=== PATIENT | male | born 1935 | race Caucasian/White ===

== ENCOUNTER → 2017-09-28 13:15 | Outpatient (CLI) | payer MEDICARE, OTHER, SELFPAY | PROVIDERS: PCP Family Medicine; Visit Provider Internal Medicine | DX: E11.621 Type 2 diabetes mellitus with foot ulcer (principal); L97.521 Non-pressure chronic ulcer of other part of left foot limited to breakdown of skin; L84 Corns and callosities | CPT/HCPCS: 99213 ==

== ENCOUNTER → 2017-10-08 13:18 | Outpatient (CLI) | payer MEDICARE, OTHER, SELFPAY | PROVIDERS: PCP Family Medicine; Visit Provider Internal Medicine | DX: E11.621 Type 2 diabetes mellitus with foot ulcer (principal); L97.522 Non-pressure chronic ulcer of other part of left foot with fat layer exposed; L08.9 Local infection of the skin and subcutaneous tissue, unspecified | CPT/HCPCS: 11042; 87070; 87075; 87077; 87186; 87205 ==

== ENCOUNTER → 2017-10-14 08:58 | Outpatient (CLI) | payer MEDICARE, OTHER, SELFPAY | PROVIDERS: PCP Family Medicine; Visit Provider Internal Medicine | DX: E11.621 Type 2 diabetes mellitus with foot ulcer (principal); L97.512 Non-pressure chronic ulcer of other part of right foot with fat layer exposed; B95.2 Enterococcus as the cause of diseases classified elsewhere | CPT/HCPCS: 11042 ==

== ENCOUNTER → 2017-10-21 11:05 | Outpatient (CLI) | payer MEDICARE, OTHER, SELFPAY ==
--- NOTE | 2017-10-21 | OV.WND_ITS ---
Progress Note Details Patient Name: Flako Dodson Patient Number: [id number] PatientPatientDate: 10/21/2017 Clinician: Gilma Goode Clinician Cosigner: Courtney Mckeon Physician / Appeals Officer: Naseem Qureshi SUBJECTIVE Chief Complaint This information was obtained from the patient Ulcer to left great toe. Allergies Levaquin (Severity: Severe, Reaction: lips and tongue swell), rifampin, alteplase HPI This information was obtained from the patient 10/21/17. Seen by Dr. Qureshi. The patient's completed his course of Augmentin that 's been treating the chronic and recurrent left 1st toe diabetic ulcer and he does not report recurrence of drainage from the site. He's also wearing his shoe with the cut out that's offloading the ulcer site and addressing the severe lateral deformity of the toe. He'll be seeing Dr. Gonzalez, podiatry, as well to discuss snf options in managing this ulcer and toe deformity. 10/14/17. Seen by Dr. Qureshi. The patient is now on Augmentin for the Enterococcus positive culture taken from the left 1st toe diabetic ulcer at his last visit. He does not report adverse side effects nor significant drainage from this site and states he keeps the ulcer covered at all times. 10/08/17. Seen by Dr. Qureshi. The patient reports increased drainage associated with the chronic left 1st toe diabetic ulcer since his last visit which at the time the ulcer had nearly healed. 09/28/17. Seen by Dr. Qureshi. The patient does not report significant drainage or pain associated with the chronic left 1st toe diabetic ulcer since his last visit. 09/21/17. Seen by Dr. Qureshi. The patient does not report signficant drainage or pain associated with the chronic left 1st toe diabetic ulcer since his last visit. 09/14/17. Seen by Dr. Qureshi. The patient does not report signficant drainage or pain associated with the chronic left 1st toe diabetic ulcer since his last visit. He also cut a hole out in his shoe to help facilitate offloading which he'd done in the past and states it worked well. 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 09/07/2017. Seen by Dr. Qureshi. The patient does not report signficant drainage or pain associated with the chronic left 1st toe diabetic ulcer since his last visit. 08/31/17. Seen by Dr. Qureshi. The patient had a gel insert placed into his orthotic shoe since his last visit to help offload the left first toe recurrent diabetic ulcer. He has a severe valgus deformities caused heavy corey-ulcer callus formation. 08/24/17. Seen by Dr. Qureshi. The patient was to start on Augmentin earlier today based on his wound culture that grew enterococcus. He actually feels the drainage has resolved from the left first toe diabetic ulcer and his orthotic and she was adjusted to help facilitate offloading noted in the significant bony deformity have been contributing to heavy callus formation. 08/17/17. Seen by Dr. Qureshi. The patient returns for clinic following discharge recently for a chronic left first toe diabetic ulcer. He states that it started draining about a week ago and following wearing of his new diabetic shoes. He does not report pain in his toe and states his A1c is typically a bit over 7 although it is monitored blood sugars at home. Has a significant valgus deformity that has resulted in heavy callus formation at the site of the ulcer and he has seen podiatry for this in the past. 07/21/17. Seen by Jose Guadalupe Cai PA-C. The patient reports no drainage from his left 1st toe ulcer since his last dressing change. 07/14/17. Seen by Jose Guadalupe Cai PA-C. The patient reports no increase in drainage from his left 1st toe ulcer. [facility] has called him and clarified that the shoes are in production now. 07/06/17. Seen by Jose Guadalupe Cai PA-C. The patient reports that he saw [facility] and they do not plan to build his shoes until his ulcer is healed first. Drainage from his ulcer has not increased. 06/29/17. Seen by Jose Guadalupe Cai PA-C. The patient reports continued failures in finding a toe lift that fits. He and his have tried several types. Of note, the patient reports that the shoes he wears are not custom diabetic shoes. His soles are noted to be worn down. Drainage from his left 1st toe diabetic ulcer has not increased. 06/23/17. Seen by Jose Guadalupe Cai PA-C. The patient reports he has had a difficult time finding a toe lift that will elevate his great toe, as well as his other toes. He does not report increased drainage from his left 1st toe diabetic ulcer since his last evaluation. 06/10/17. Seen by Dr. Qureshi. The patient does not report significant pain or drainage associated with the chronic left 1st toe diabetic ulcer since his last visit. 05/27/17. Seen by Dr. Qureshi. The patient does not report significant pain or drainage associated with the chronic left 1st toe diabetic ulcer since his last visit. He 's wearing orthotics in his shoes to help facilitate offloading of the left 1st toe deformity that's resulted in recurrent callus formation which is contributing to the refractory nature of the ulcer. 05/07/17. Seen by Dr. Qureshi. The patient does not report significant pain or drainage associated with the chronic left 1st toe diabetic ulcer since his last visit. 04/27/17. Seen by Dr. Qureshi. The patient does not report significant pain or drainage associated with the chronic left 1st toe diabetic ulcer since his last visit. 04/20/17. Seen by Dr. Qureshi. The patient does not report significant pain or drainage associated with the chronic left 1st toe diabetic ulcer since his last visit. He continues to apply topical gentamicin as recommended to treat the recent Enterococcus positive wound culture. 04/13/17. Seen by Dr. Qureshi. Seen by Dr. Qureshi. The patient does not report significant pain or drainage associated with the chronic left 1st toe diabetic ulcer since his last visit. His recent wound culture grew Enterococcus however he's not yet picked up his Rx of Augmentin to start treating this. 04/06/17. Seen by Jose Guadalupe Cai PA-C. The patient reports that his bandage fell over several times and he has noted pururlent drainage from his ulcer. 03/23/17. Seen by Dr. Qureshi. The patient does not report significant pain or drainage associated with the chronic left 1st toe diabetic ulcer since his last visit. He also states he has an appointment with Dr. Gonzalez next week to discuss the significant left 1st toe valgus deformity and possible snf offloading measures. Also, his diabetes is historically relatively well controlled with noting his A1c in February was 7.0. 03/16/17. Seen by Dr. Qureshi. The patient does not report significant pain or drainage associated with the chronic left 1st toe diabetic ulcer since his last visit. He 's seeing his coupon redemption clerk who's made an adjustment to the shoe to help facilitate offloading and prevent the periulcer callus that's be caused by the significant 1st toe valgus deformity. 03/09/17. Seen by Jose Guadalupe Cai PA-C. The patient reports stable drainage from his right great toe ulcer. 03/02/17. Seen by Jose Guadalupe Cai PA-C. The patient reports no increase in drainage from his right great toe ulcer and he feels it is improving in appearance. 02/23/17. Seen by Jose Guadalupe Cai PA-C. The patient reports continued but decreasing drainage since starting his amoxicillin. 02/16/17. Seen by Jose Guadalupe Cai PA-C. The patient reports a slight decrease in drainage from his right great toe once gentamicin was applied. His culture result grew enterococcus. 02/09/17. Seen by Jose Guadalupe Cai PA-C. The patient reports he has a new ulcer to his right great toe that began spontaneously 10 days ago and has been continuously present. He has noted bleeding and clear drainage that occurs intermittently from the ulcer but no pain as he is insensate. 07/30/15 Seen by Jose Guadalupe Cai PA-C. The patient reports no drainage from his coccyx pressure ulcer since his last dressing change. 07/23/15 Seen by Jose Guadalupe Cai PA-C. The patient reports minimal drainage from his coccyx pressure ulcer. The patient and his ask today about a product that purports to be for the prevention of pressure ulcers and purports to contain water of altered electrical resistance as the active ingredient. 07/16/15 Seen by Jose Guadalupe Cai PA-C. The patient's prealbumin level has returned within normal limits. He has redoubled his offloading attempts and has purchased several EHOB cushions to have in the house and car. He reports minimal drainage from his pressure ulcer. 07/24/14 Seen by Jose Guadalupe Cai PA-C. The patient returns to our clinic with an open pressure ulcer on his buttock area. It was first noted 3 months ago and has improved and decreased in size during that time with the application of barrier creams and attempts to offload the area. The ulcer is reported as mildly painful with pain increasing during long periods of sitting. The patient reports eating a balanced diet that includes plenty of protein. pt states improving. 08/27/12 Patient received sound health order yesterday. Still having a hard time keeping dressings on. 09/13/12 States is changing dressing about QOD 09/20/12 Comes in with bandaid (showered this AM) States dressing with hypafix seems to be working well to keep dressing secure 10/11/12 States been changing dressing every 2 days. Feels that wound is on crease where if puts toe on it it flattenes and puts pressure on it. Does feel it is decreasing in size 10/25/12 No significant changes in wound. 11/08/12 States is not healed. States he is changing dressing about once daily sometimes 2 days and puts the cellerate on each time. States the ortho wedge is not real helpful as it creates balance issues so seldom uses it. 11/22/12 Been off foot more, thinks is improving. Changing dressing about q 2 days. States has been using some stuff called Miracle Mist on wound that seems to be helping as well, then putting dressing over it. No change to report 01/18/13 Here for infected right knee. Saw Dr Alonso end of November. Culture showed Staph. On 3rd round of Augmentin. States that it is improving Past Medical History This information was obtained from the patient Patient has a medical history of: Diabetes, type 2 Stroke (02/2015) Epidural hematoma (1 year ago. 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 Complaints and Symptoms This information was obtained from the patient Patient complains of: General Notes: I have reviewed and concur with the Review of Systems and Past Family Social History documents completed by the clinician, I have reviewed and concur with the Wound Assessment document completed by the clinician Integumentary (Hair/Skin/Nails): Open Sore Musculoskeletal: Assistive Devices Neurological: Abnormal Gait (Due to above), Loss of Protective Sensation Prior Wound History: Drainage Patient denies complaints or symptoms related to: Allergic/Immunologic: Frequent Rashes Cardiovascular (Central): Irregular heart beat Cardiovascular (Central/Peripheral): Intermittent Claudication Constitutional Symptoms (General Health): Fever, Loss of Appetite Ear/Nose/Mouth/Throat: Ear Pain, Hearing Loss / Aid Genitourinary (): Urinary Incontinence Hematologic/Lymphatic: Bruising, Bleeding Tendency Psychiatric: Memory Loss Respiratory: Cough, Oxygen Use, Wheezing OBJECTIVE Constitutional Vital signs reviewed and noted. Well developed. Alert. Clean appearing.. Height/ Length: 73 in (185.42 cm), Weight: 230.3 lbs (104.68 kgs), BMI: 30.4, Temperature: 97.8 ?F ( 36.56 ?C), Pulse: 75 bpm, Respiratory Rate: 20 breaths/min, Blood Pressure: 129/73 mmHg, Pulse Oximetry: 97 %. Respiratory: No respiratory distress. Even respirations and without use of accessory muscles.. Cardiovascular: Affected extremity exhibits no peripheral edema or cyanosis, is warm, and is well perfused. Capillary refill is less than 2 seconds. Musculoskeletal: Significant left 1st MTPJ valgus deformity. Integumentary (Hair, Skin) No periwound erythema, warmth, or significant drainage. No periwound rashes appreciated or noted otherwise.. Refer to appropriate clinician wound documentation for this visit; left 1st toe ulcer extends to subcut with base partially covered with pink granulation, remainder fibrin and slough. Moderate amount of callus in the periulcer area. Wound #4 Left Great Toe is a chronic Gloria Grade 2 Diabetic Ulcer and has received a status of Not Healed. Subsequent wound encounter measurements are 0.1cm length x 0.1cm width x 0.1cm depth, with an area of 0.01 sq cm and a volume of 0.001 cubic cm. No tunneling has been noted. No sinus tract has been noted. No undermining has been noted. There was no drainage noted. The patient reports no wound pain due to the wound being insensate. The wound margin is callus. Wound bed has Yes epithelialization, No eschar, No slough, No granulation. The periwound skin moisture is normal. The periwound skin color is normal. The periwound skin exhibited: Callus. The periwound skin did not exhibit: Brawny Induration, Edema, Excoriation, Induration, Crepitus, Fluctuance, Friable, Rash. The temperature of the periwound skin is WNL. Periwound skin does not exhibit signs or symptoms of infection. Local Pulse is Palpable. Neurological: Cranial nerves grossly intact with symmetric function normal by informal observation.. ASSESSMENT Active Problems ICD-10 (Encounter Diagnosis) E11.621 - Type 2 diabetes mellitus with foot ulcer (Encounter Diagnosis) L97.512 - Non-pressure chronic ulcer of other part of right foot with fat layer exposed (Encounter Diagnosis) M20.62 - Acquired deformities of toe(s), unspecified, left foot PROCEDURES Wound #4 Wound #4 (Diabetic Ulcer) is located on the left great toe. A skin/subcutaneous tissue level surgical debridement with a total area debrided of 0.06 sq cm was performed by Naseem Qureshi MD. Subcutaneous was removed along with devitalized tissue: callus and slough. The following instrument(s) were used: curette. Pain control was achieved using Lidocaine 2 % Jelly. A time out was conducted prior to the start of the procedure. A minimal amount of bleeding was controlled with pressure. The procedure was tolerated well with a pain level of 0 throughout and a pain level of 0 following the procedure. Post Debridement Measurements: 0.3cm length x 0.2cm width x 0.2cm depth; with an area of 0.06 sq cm and a volume of 0.012 cubic cm; Additional Information Muscle fascia or bone removed and sent to pathology?: No PLAN Wound Orders: Wound #4 Left Great Toe Anesthetic Topical Xylocaine to wound bed. - In clinic only. Cleanser Cleanse Wound: - Normal saline and gauze, may use distilled water at home. May Shower. - Cover in shower with cast protector or plastic bag. Topical Treatments Antibiotic/Antimicrobial Ointment/Cream. - Gentamicin to wound bed, with every dressing change. Dressings Cover and secure with: - Optifoam secured with hypafix tape. Change Dressing: - Every two days. Additional Orders: Off-Loading Keep weight off: - Great toe as much as possible. Follow-Up Appointments Return Appointment: - - 10-14 days. Other information: If you develop fever, chills, increased pain, drainage, redness or swelling please call our office. If after hours, respond to the ER. Should you experience any significant changes in your wound(s) or have any questions regarding your home care instructions please contact the wound center @ [phone]. If after hours, contact your primary care physician or go to the hospital emergency room. Scribing Attestation I attest, as the nurse, that I scribed these orders for the physician. I've reviewed the clinician's documentation and agree with the evaluation and plan as written. In addition, the patient's ulcer demonstrates evidence of non-viable devitalized tissue which will continue to benefit from sharp debridement to help promote granulation and expedite healing. Also, the patient's left 1st toe ulcer has nearly healed however it will continue to at high risk for recurrence due to the deformity and heavy callus formation. I'll await feedback from Dr. 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 Electronic Signature(s) Signed By: Date: Naseem Qureshi MD 10/21/2017 15:30:00 Entered By: Naseem Qureshi on 10/21/2017 15:27:15
== END ==
PROVIDERS: PCP Family Medicine; Visit Provider Internal Medicine
DX: E11.621 Type 2 diabetes mellitus with foot ulcer (principal); L84 Corns and callosities; L97.522 Non-pressure chronic ulcer of other part of left foot with fat layer exposed; M20.62 Acquired deformities of toe(s), unspecified, left foot
CPT/HCPCS: 11042

== ENCOUNTER → 2017-11-04 10:10 | Outpatient (CLI) | payer MEDICARE, OTHER, SELFPAY ==
--- NOTE | 2017-11-04 | OV.WND_ITS ---
Progress Note Details Patient Name: Flako Dodson Patient Number: [id number] PatientPatientDate: 11/04/2017 Clinician: Lynda Carreon Clinician Cosigner: Joy Verduzco Physician / Business Objects Analyst: Naseem Qureshi SUBJECTIVE Chief Complaint This information was obtained from the patient Ulcer to left great toe. Allergies Levaquin (Severity: Severe, Reaction: lips and tongue swell), rifampin, alteplase HPI This information was obtained from the patient 11/04/17. Seen by Dr. Qureshi. The patient does not report drainage associated with the chronic and recurrent left 1st toe diabetic ulcer since his last visit. 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 They've not been applying Kersal however he's wearing a shoe with a cutout of the sole to help offload the toe. 10/21/17. Seen by Dr. Qureshi. The patient's completed his course of Augmentin that 's been treating the chronic and recurrent left 1st toe diabetic ulcer and he does not report recurrence of drainage from the site. He's also wearing his shoe with the cut out that's offloading the ulcer site and addressing the severe lateral deformity of the toe. He'll be seeing Dr. Gonzalez, podiatry, as well to discuss half-way options in managing this ulcer and toe deformity. 10/14/17. Seen by Dr. Qureshi. The patient is now on Augmentin for the Enterococcus positive culture taken from the left 1st toe diabetic ulcer at his last visit. He does not report adverse side effects nor significant drainage from this site and states he keeps the ulcer covered at all times. 10/08/17. Seen by Dr. Qureshi. The patient reports increased drainage associated with the chronic left 1st toe diabetic ulcer since his last visit which at the time the ulcer had nearly healed. 09/28/17. Seen by Dr. Qureshi. The patient does not report significant drainage or pain associated with the chronic left 1st toe diabetic ulcer since his last visit. 09/21/17. Seen by Dr. Qureshi. The patient does not report signficant drainage or pain associated with the chronic left 1st toe diabetic ulcer since his last visit. 09/14/17. Seen by Dr. Qureshi. The patient does not report signficant drainage or pain associated with the chronic left 1st toe diabetic ulcer since his last visit. He also cut a hole out in his shoe to help facilitate offloading which he'd done in the past and states it worked well. 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 09/07/2017. Seen by Dr. Qureshi. The patient does not report signficant drainage or pain associated with the chronic left 1st toe diabetic ulcer since his last visit. 08/31/17. Seen by Dr. Qureshi. The patient had a gel insert placed into his orthotic shoe since his last visit to help offload the left first toe recurrent diabetic ulcer. He has a severe valgus deformities caused heavy corey-ulcer callus formation. 08/24/17. Seen by Dr. Qureshi. The patient was to start on Augmentin earlier today based on his wound culture that grew enterococcus. He actually feels the drainage has resolved from the left first toe diabetic ulcer and his orthotic and she was adjusted to help facilitate offloading noted in the significant bony deformity have been contributing to heavy callus formation. 08/17/17. Seen by Dr. Qureshi. The patient returns for clinic following discharge recently for a chronic left first toe diabetic ulcer. He states that it started draining about a week ago and following wearing of his new diabetic shoes. He does not report pain in his toe and states his A1c is typically a bit over 7 although it is monitored blood sugars at home. Has a significant valgus deformity that has resulted in heavy callus formation at the site of the ulcer and he has seen podiatry for this in the past. 07/21/17. Seen by Jose Guadalupe Cai PA-C. The patient reports no drainage from his left 1st toe ulcer since his last dressing change. 07/14/17. Seen by Jose Guadalupe Cai PA-C. The patient reports no increase in drainage from his left 1st toe ulcer. [facility] has called him and clarified that the shoes are in production now. 07/06/17. Seen by Jose Guadalupe Cai PA-C. The patient reports that he saw [facility] and they do not plan to build his shoes until his ulcer is healed first. Drainage from his ulcer has not increased. 06/29/17. Seen by Jose Guadalupe Cai PA-C. The patient reports continued failures in finding a toe lift that fits. He and his have tried several types. Of note, the patient reports that the shoes he wears are not custom diabetic shoes. His soles are noted to be worn down. Drainage from his left 1st toe diabetic ulcer has not increased. 06/23/17. Seen by Jose Guadalupe Cai PA-C. The patient reports he has had a difficult time finding a toe lift that will elevate his great toe, as well as his other toes. He does not report increased drainage from his left 1st toe diabetic ulcer since his last evaluation. 06/10/17. Seen by Dr. Qureshi. The patient does not report significant pain or drainage associated with the chronic left 1st toe diabetic ulcer since his last visit. 05/27/17. Seen by Dr. Qureshi. The patient does not report significant pain or drainage associated with the chronic left 1st toe diabetic ulcer since his last visit. He 's wearing orthotics in his shoes to help facilitate offloading of the left 1st toe deformity that's resulted in recurrent callus formation which is contributing to the refractory nature of the ulcer. 05/07/17. Seen by Dr. Qureshi. The patient does not report significant pain or drainage associated with the chronic left 1st toe diabetic ulcer since his last visit. 04/27/17. Seen by Dr. Qureshi. The patient does not report significant pain or drainage associated with the chronic left 1st toe diabetic ulcer since his last visit. 04/20/17. Seen by Dr. Qureshi. The patient does not report significant pain or drainage associated with the chronic left 1st toe diabetic ulcer since his last visit. He continues to apply topical gentamicin as recommended to treat the recent Enterococcus positive wound culture. 04/13/17. Seen by Dr. Qureshi. Seen by Dr. Qureshi. The patient does not report significant pain or drainage associated with the chronic left 1st toe diabetic ulcer since his last visit. His recent wound culture grew Enterococcus however he's not yet picked up his Rx of Augmentin to start treating this. 04/06/17. Seen by Jose Guadalupe Cai PA-C. The patient reports that his bandage fell over several times and he has noted pururlent drainage from his ulcer. 03/23/17. Seen by Dr. Qureshi. The patient does not report significant pain or drainage associated with the chronic left 1st toe diabetic ulcer since his last visit. He also states he has an appointment with Dr. 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 Also, his diabetes is historically relatively well controlled with noting his A1c in February was 7.0. 03/16/17. Seen by Dr. Qureshi. The patient does not report significant pain or drainage associated with the chronic left 1st toe diabetic ulcer since his last visit. He 's seeing his regional construction manager who's made an adjustment to the shoe to help facilitate offloading and prevent the periulcer callus that's be caused by the significant 1st toe valgus deformity. 03/09/17. Seen by Jose Guadalupe Cai PA-C. The patient reports stable drainage from his right great toe ulcer. 03/02/17. Seen by Jose Guadalupe Cai PA-C. The patient reports no increase in drainage from his right great toe ulcer and he feels it is improving in appearance. 02/23/17. Seen by Jose Guadalupe Cai PA-C. The patient reports continued but decreasing drainage since starting his amoxicillin. 02/16/17. Seen by Jose Guadalupe Cai PA-C. The patient reports a slight decrease in drainage from his right great toe once gentamicin was applied. His culture result grew enterococcus. 02/09/17. Seen by Jose Guadalupe Cai PA-C. The patient reports he has a new ulcer to his right great toe that began spontaneously 10 days ago and has been continuously present. He has noted bleeding and clear drainage that occurs intermittently from the ulcer but no pain as he is insensate. 07/30/15 Seen by Jose Guadalupe Cai PA-C. The patient reports no drainage from his coccyx pressure ulcer since his last dressing change. 07/23/15 Seen by Jose Guadalupe Cai PA-C. The patient reports minimal drainage from his coccyx pressure ulcer. The patient and his ask today about a product that purports to be for the prevention of pressure ulcers and purports to contain water of altered electrical resistance as the active ingredient. 3/7/16 Seen by Jose Guadalupe Cai PA-C. The patient's prealbumin level has returned within normal limits. He has redoubled his offloading attempts and has purchased several EHOB cushions to have in the house and car. He reports minimal drainage from his pressure ulcer. 07/24/14 Seen by Jose Guadalupe Cai PA-C. The patient returns to our clinic with an open pressure ulcer on his buttock area. It was first noted 3 months ago and has improved and decreased in size during that time with the application of barrier creams and attempts to offload the area. The ulcer is reported as mildly painful with pain increasing during long periods of sitting. The patient reports eating a balanced diet that includes plenty of protein. pt states improving. 08/27/12 Patient received sound health order yesterday. Still having a hard time keeping dressings on. 09/13/12 States is changing dressing about QOD 09/20/12 Comes in with bandaid (showered this AM) States dressing with hypafix seems to be working well to keep dressing secure 10/11/12 States been changing dressing every 2 days. Feels that wound is on crease where if puts toe on it it flattenes and puts pressure on it. Does feel it is decreasing in size 10/25/12 No significant changes in wound. 11/08/12 States is not healed. States he is changing dressing about once daily sometimes 2 days and puts the cellerate on each time. States the ortho wedge is not real helpful as it creates balance issues so seldom uses it. 11/22/12 Been off foot more, thinks is improving. Changing dressing about q 2 days. States has been using some stuff called Miracle Mist on wound that seems to be helping as well, then putting dressing over it. No change to report 01/18/13 Here for infected right knee. Saw Dr Alonso end of November. Culture showed Staph. On 3rd round of Augmentin. States that it is improving Family History This information was obtained from the patient Cancer - Father, Diabetes - Child, Other - Mother Social History This information was obtained from the patient Never smoker, Alcohol Use - 1 drink per day, Lives in - Private home with , Marital Status - , Retired Past Medical History This information was obtained from the patient Patient has a medical history of: Diabetes, type 2 Stroke (02/2015) Epidural hematoma (1 year ago. 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 Surgical History This information was obtained from the patient Patient has a surgical history of: Tonsillectomy - 05/11/1942 hemorrhoidectomy - 05/11/1989 appendectomy,laminectomy (,) left knee ACL replacement - 03/11/2002 Larnyx nodule removal - 07/09/2006 left Knee Replacement - 02/09/2008 left knee pad replacement - 01/09/2009 c4 vertebrae surgeery - 02/09/2011 l4 laminectomy - 12/13/2011 Right knee replaced (5 years ago) Complaints and Symptoms This information was obtained from the patient Patient complains of: General Notes: I have reviewed and concur with the Review of Systems and Past Family Social History documents completed by the clinician, I have reviewed and concur with the Wound Assessment document completed by the clinician Integumentary (Hair/Skin/Nails): Open Sore Musculoskeletal: Assistive Devices Neurological: Abnormal Gait (Due to above), Loss of Protective Sensation Prior Wound History: Drainage Patient denies complaints or symptoms related to: Allergic/Immunologic: Frequent Rashes Cardiovascular (Central): Irregular heart beat Cardiovascular (Central/Peripheral): Intermittent Claudication Constitutional Symptoms (General Health): Fever, Loss of Appetite Ear/Nose/Mouth/Throat: Ear Pain, Hearing Loss / Aid Genitourinary (): Urinary Incontinence Hematologic/Lymphatic: Bruising, Bleeding Tendency Psychiatric: Memory Loss Respiratory: Cough, Oxygen Use, Wheezing OBJECTIVE Constitutional Vital signs reviewed and noted. Well developed. Alert. Clean appearing.. Height/ Length: 73 in (185.42 cm), Weight: 230.3 lbs (104.68 kgs), BMI: 30.4, Temperature: 98.3 ?F ( 36.83 ?C), Pulse: 73 bpm, Respiratory Rate: 18 breaths/min, Blood Pressure: 134/79 mmHg, Pulse Oximetry: 98 %. Ears, Nose, Mouth, and Throat: Mild hearing deficit. Respiratory: No respiratory distress. Even respirations and without use of accessory muscles.. Cardiovascular: Pedal pulses 2+ on affected limb. Affected extremity exhibits no peripheral edema or cyanosis, is warm, and is well perfused. Capillary refill is less than 2 seconds. Musculoskeletal: Significant left 1st MTPJ valgus deformity. Integumentary (Hair, Skin) No periwound erythema, warmth, or significant drainage. No periwound rashes appreciated or noted otherwise.. Refer to appropriate clinician wound documentation for this visit.. Moderate amount of callus in the now healed periulcer area of the left 1st toe. Wound #4 Left Great Toe is a chronic Gloria Grade 2 Diabetic Ulcer and has received an outcome of Healed - no new wound(s). Subsequent wound encounter measurements are 0cm length x 0cm width with no measurable depth, with an area of 0 sq cm . No tunneling has been noted. No sinus tract has been noted. No undermining has been noted. There was no drainage noted. The patient reports no wound pain due to the wound being insensate. The wound margin is callus. Wound bed has Yes epithelialization, No eschar, No slough, No granulation. The periwound skin moisture is normal. The periwound skin color is normal. The periwound skin exhibited: Callus. The periwound skin did not exhibit: Brawny Induration, Edema, Excoriation, Induration, Crepitus, Fluctuance, Friable, Rash. The temperature of the periwound skin is WNL. Periwound skin does not exhibit signs or symptoms of infection. Local Pulse is Palpable. Neurological: Cranial nerves grossly intact with symmetric function normal by informal observation.. ASSESSMENT Active Problems ICD-10 (Encounter Diagnosis) E11.621 - Type 2 diabetes mellitus with foot ulcer (Encounter Diagnosis) L97.512 - Non-pressure chronic ulcer of other part of right foot with fat layer exposed (Encounter Diagnosis) M20.62 - Acquired deformities of toe(s), unspecified, left foot (Encounter Diagnosis) L84 - Corns and callosities PLAN Wound Orders: Wound #4 Left Great Toe Cleanser Cleanse Wound: - Normal saline and gauze, may use distilled water at home. May Shower. - Cover in shower with cast protector or plastic bag. Topical Treatments Moisturizing lotion to surround skin. - Kerasal to callus area. Dressings Cover and secure with: - Optifoam secured with hypafix tape. Change Dressing: - Every 3 days for two weeks. Additional Orders: Off-Loading Keep weight off: - Great toe as much as possible. Follow-Up Appointments Other information: If you develop fever, chills, increased pain, drainage, redness or swelling please call our office. If after hours, respond to the ER. Should you experience any significant changes in your wound(s) or have any questions regarding your home care instructions please contact the wound center @ [phone]. If after hours, contact your primary care physician or go to the hospital emergency room. Discharge from Outpatient Services. - Wound healed. Scribing Attestation I attest, as the nurse, that I scribed these orders for the physician. I've reviewed the clinician's documentation and agree with the evaluation and plan as written. In addition the patient's last remiaining complex wound is now healed. The patient is invited to return to our clinic for treatment of any future complex wounds. Post wound care and strategies to avoid recurrences were discussed. Also, I've recommended the patient apply Kerasal to the left 1st toe callus every 3 days and gently abrade the area with pumice, being cautious to not causing bleeding, in the interim until he sees podiatry again. Electronic Signature(s) Signed By: Date: Naseem Qureshi MD 11/05/2017 09:59:55 Entered By: Naseem Qureshi on 11/05/2017 09:02:59
== END ==
PROVIDERS: PCP Family Medicine; Visit Provider Internal Medicine
DX: Z48.817 Encounter for surgical aftercare following surgery on the skin and subcutaneous tissue (principal); E11.9 Type 2 diabetes mellitus without complications; L84 Corns and callosities; M20.62 Acquired deformities of toe(s), unspecified, left foot
CPT/HCPCS: 99213

== ENCOUNTER → 2018-04-15 11:37 | Outpatient (CLI) | payer MEDICARE, OTHER, SELFPAY ==
--- NOTE | 2018-04-15 | DI.RAD.S_ITS ---
PROCEDURE: XR FOOT LT MIN 3V INDICATIONS: Non-pressure chronic ulcer of other part of left foot with f TECHNIQUE: 3 views of the foot were acquired. COMPARISON: [facility], CR, ANKLE MIN 3VW (LT), 07/21/2014, 10:24. FINDINGS: Bones: No fractures or dislocations. No suspicious bony lesions. Degenerative changes are noted at the tibiotalar joint and subtalar joint, with radiographic appearance suggesting neuropathic arthropathy. No bony erosion. There is osteopenia. Soft tissues: No tibiotalar joint effusion. Achilles tendon appears normal. Soft tissue swelling anterior to the ankle. IMPRESSION: 1. No bony erosion. Radiographs are not sensitive for early osteomyelitis. If clinical suspicion for pathology is high, a triple phase bone scan or MRI is suggested for further evaluation. 2. ? Neuropathic arthropathy versus severe degenerative joint disease. 3. Osteopenia. Dictated by: Nnamdi Santiago M.D. on 04/15/2018 at 16:06 Approved by: Nnamdi Santiago M.D. on 04/15/2018 at 16:12
== END ==
PROVIDERS: PCP Family Medicine; Visit Provider Podiatrist
DX: L97.522 Non-pressure chronic ulcer of other part of left foot with fat layer exposed (principal); M85.872 Other specified disorders of bone density and structure, left ankle and foot
CPT/HCPCS: 73630

== ENCOUNTER 2018-07-21 13:01 | Day surgery (SDC) | payer MEDICARE, OTHER, SELFPAY ==
--- NOTE | 2018-07-17 10:24 | PM.PREOP ---
Pre-operative Note Interval Note History & Physical reviewed/Exam performed by Physician: Yes Changes to H&P: No H&P completed within 30 days and has changed as indicated here:: Fasting glucose 127.
--- NOTE | 2018-07-17 11:27 | PM.OP.1 ---
Operative Date/Time/Diagnoses Date of procedure: 07/21/18 Time of procedure: 13:45 Procedure & Clinicians Procedure: Procedure: Bilateral ectropion repair. Preoperative diagnosis: 1.Bilateral lower lid ectropion.Bilateral lower punctal dilation, 3 snip and left inferior spindle erpair. 2.Diabetes without retinopathy. 3. Chronic epiphora with punctal stenosis needing punctal surgert and left spindle procedure. 4.Recent skin cancer removal left rastafari. Anesthesia: local with monitored standby. Blood loss less than 5 cc. Operative summary. Patient is a 83-year-old diabetic male who has chronic exposure of his lower cornea and epiphora due to lower lid laxity and closed puncta. He has persistent symptoms conservative treatment of lubricants and night ointment. He is medically stable and to proceed surgery. He did have a recent cancerous lesion removed from his left rastafari with sutures due to be removed prior to the surgery. He has taken to the operating room. Given IV sedation. Then local anesthetic is infiltrated through both lower lids and puncta using 1% xylocaine with epinephrine mixed with normal saline and hyulronidase. This is then supplemented with additional 2 0.5 cc 2% xylocaine mixed 0.5% Marcaine with 1 cc of hyulronidase to all areas the lower lateral inferior lid. He has then prepped full face open. A number 15 Bard-Richar blade is used to make a 1 cm lateral canthotomy on the right. The inferior canthal tendon was lysed. A tarsal strip was formed exposing the anterior and posterior lamella. Minimal tissue was resected. A 5.0 Mersilene suture double-armed was placed through the tarsal strip and anchored to the periosteum. Both sutures were passed and it was tied with multiple knots. The lateral canthus was then reconstructed with interrupted 6 0 Vicryl sutures. The lower punctum was dilated with a punctal dilator. A 3 snip procedure was performed. The punctum was dilated to the common canaliculus. This procedure was repeated for the left eye in identical fashion. There was minimal blood loss. He returned recovery room in stable condition Same procedure as scheduled: Yes Indications: Bilateral lower lid ectropion. Surgeon: Juanita Qureshi Click Yes if Unassisted: Yes Anesthesia Type: MAC +/- and Local Operative Notes Findings: Bilateral lower lid laxity and punctal stenosis. Closure Type: primary Specimen(s): none sent Prosthetic devices, grafts, tissues, transplants, or devices: None Estimated Blood Loss (mL): 5 Blood products transfused: none Procedure in detail: Patient was taken to the operating room. The area is a surgical incision to be performed were confirmed. The planned surgery was for bilateral lower lid ectropion repair with horizontal shortening bilateral lower lid punctal probing with 3 snip procedure and left spindle procedure. This was to improve patient's chronic tearing and irritation. 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 This was not in the planned surgical sites. He was given IV sedation. Local anesthetic was given To both lower lids and lower nasal canthus. 1% xylocaine with epinephrine mixed with normal saline 50 50 with 1 cc of hyaluronidase added to 0.5 cc was given to each lid. This was then supplemented with 2% xylocaine with epinephrine mixed with 0.5% bupivacaine and 1 cc of hyalurondase 2.5 cc to each lower lid. He was then prepped full face open with Betadine. Attention was placed to the right lower lid. A punctal dilator was used to dilate the punctum and then scissors were used to create a 3 snip procedure. This was then probed to the nose. Attention was placed to the lateral lid. A 1 cm lateral canthotomy was performed. The inferior canthal tendon was lysed. Prolapse fat was removed temporally. A temp tarsal strip procedure was performed with removal of the anterior and posterior lamella and a 1 mm resection. This strip was anchored to the periosteum with a double-armed 5 0 Mersilene suture. Excellent position was obtained. The lateral canthus was then reapproximated with interrupted 6 0 Vicryl sutures and the lateral skin closed. Attention was placed to the left lid. The inferior punctum was dilated. A 3 snip procedure was performed. An inferior spindle using an incision 8 mm inferior to the punctum on the conjunctival side. Cautery applied. A 6 0 Vicryl suture then placed in a mattress style through the lower lid and the skin by the lower lid retractors and externalized and tied. The lateral canthus was then approached. Extra anesthetic was given. A lateral canthotomy of 1 cm was performed. An inferior canthal tendon lysis was performed. Removal of inferior prolapsed fat was performed. After hemostasis, a tarsal strip was formed at the lateral canthus with removal of the anterior posterior lamella. 1 mm was removed. The superior canthal lid margin was also incised. A 5 0 Mersilene double-armed suture was placed through the periosteum and tied with multiple throws. Good position resulted. The lateral canthus was then reapproximated with interrupted 6 0 Vicryl sutures and the skin closed with interrupted 6 0 Vicryl sutures. There was less than 5 cc blood loss for the entire case. Maxitrol ointment was placed after removing the Betadine. The patient returned to the recovery room in excellent condition. No specimen were sent. Complications: none Condition: stable Disposition: same day surgery Plan for aftercare: Cold compresses and suture to incisions. Handout given to patient. Return to office for follow-up and suture removal
--- NOTE | 2018-07-17 11:46 | P.OP_ITS ---
Operative Date/Time/Diagnoses Date of procedure: 07/21/18 Time of procedure: 13:45 Procedure & Clinicians Procedure: Procedure: Bilateral ectropion repair. Preoperative diagnosis: 1.Bilateral lower lid ectropion.Bilateral lower punctal dilation, 3 snip and le ft inferior spindle erpair. 2.Diabetes without retinopathy. 3. Chronic epiphora with punctal stenosis needing punctal surgert and left spindle procedure. 4.Recent skin cancer removal left synagogue. Anesthesia: local with monitored standby. Blood loss less than 5 cc. Operative summary. Patient is a 83-year-old diabetic male who has chronic exposure of his lower cornea and epiphora due to lower lid laxity and closed puncta. He has persistent symptoms conservative treatment of lubricants and night ointment. He is medically stable and to proceed surgery. He did have a recent cancerous lesion removed from his left synagogue with sutures due to be removed prior to the surgery. He has taken to the operating room. Given IV sedation. Then local anesthetic is infiltrated through both lower lids and puncta using 1% xylocaine with epinephrine mixed with normal saline and hyulronidase. This is then supplemented with additional 2 0.5 cc 2% xylocaine mixed 0.5% Marcaine with 1 cc of hyulronidase to all areas the lower lateral inferior lid. He has then prepped full face open. A number 15 Bard-Richar blade is used to make a 1 cm lateral canthotomy on the right. The inferior canthal tendon was lysed. A tarsal strip was formed exposing the anterior and posterior lamella. Minimal tissue was resected. A 5.0 Mersilene suture double- armed was placed through the tarsal strip and anchored to the periosteum. Both sutures were passed and it was tied with multiple knots. The lateral canthus was then reconstructed with interrupted 6 0 Vicryl sutures. The lower punctum was dilated with a punctal dilator. A 3 snip procedure was performed. The punctum was dilated to the common canaliculus. This procedure was repeated for the left eye in identical fashion. There was minimal blood loss. He returned recovery room in stable condition Same procedure as scheduled: Yes Indications: Bilateral lower lid ectropion. Surgeon: Juanita Qureshi Click Yes if Unassisted: Yes Anesthesia Type: MAC +/- and Local Operative Notes Findings: Bilateral lower lid laxity and punctal stenosis. Closure Type: primary Specimen(s): none sent Prosthetic devices, grafts, tissues, transplants, or devices: None Estimated Blood Loss (mL): 5 Blood products transfused: none Procedure in detail: Patient was taken to the operating room. The area is a surgical incision to be performed were confirmed. The planned surgery was for bilateral lower lid ectropion repair with horizontal shortening bilateral lower lid punctal probing with 3 snip procedure and left spindle procedure. This was to improve patient's chronic tearing and irritation. 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 This was not in the planned surgical sites. He was given IV sedation. Local anesthetic was given To both lower lids and lower nasal canthus. 1% xylocaine with epinephrine mixed with normal saline 50 50 with 1 cc of hyaluronidase added to 0.5 cc was given to each lid. This was then supplemented with 2% xylocaine with epinephrine mixed with 0.5% bupivacaine and 1 cc of hyalurondase 2.5 cc to each lower lid. He was then prepped full face open with Betadine. Attention was placed to the right lower lid. A punctal dilator was used to dilate the punctum and then scissors were used to create a 3 snip procedure. This was then probed to the nose. Attention was placed to the lateral lid. A 1 cm lateral canthotomy was performed. The inferior canthal tendon was lysed. Prolapse fat was removed temporally. A temp tarsal strip procedure was performed with removal of the anterior and posterior lamella and a 1 mm resection. This strip was anchored to the periosteum with a double-armed 5 0 Mersilene suture. Excellent position was obtained. The lateral canthus was then reapproximated with interrupted 6 0 Vicryl sutures and the lateral skin closed. Attention was placed to the left lid. The inferior punctum was dilated. A 3 snip procedure was performed. An inferior spindle using an incision 8 mm inferior to the punctum on the conjunctival side. Cautery applied. A 6 0 Vicryl suture then placed in a mattress style through the lower lid and the skin by the lower lid retractors and externalized and tied. The lateral canthus was then approached. Extra anesthetic was given. A lateral canthotomy of 1 cm was performed. An inferior canthal tendon lysis was performed. Removal of inferior prolapsed fat was performed. After hemostasis, a tarsal strip was formed at the lateral canthus with removal of the anterior posterior lamella. 1 mm was removed. The superior canthal lid margin was also incised. A 5 0 Mersilene double-armed suture was placed through the periosteum and tied with multiple throws. Good position resulted. The lateral canthus was then reapproximated with interrupted 6 0 Vicryl sutures and the skin closed with interrupted 6 0 Vicryl sutures. There was less than 5 cc blood loss for the entire case. Maxitrol ointment was placed after removing the Betadine. The patient returned to the recovery room in excellent condition. No specimen were sent. Complications: none Condition: stable Disposition: same day surgery Plan for aftercare: Cold compresses and suture to incisions. Handout given to patient. Return to office for follow-up and suture removal
[2018-07-21 13:27] VITALS: BP 138/75; PULSE 62; RESP 15; TEMP 36.5; O2SAT 99; BMI 29.0
--- NOTE | 2018-07-21 14:39 | SUR.OPER ---
Supine on eye stretcher, head on extension cradle. Arms tucked at sides. Pillow under knees.
[2018-07-21] MEDS: PROPARACAINE 0.5% OPHTH SOL 2 DROPS EYE-BOTH (14:44)
[2018-07-21] MEDS: LIDOCAINE 1% W/EPI 3 ML, SODIUM CHLORIDE 0.9% 2 ML, HYALURONIDASE 150 UNIT INJ (14:47)
[2018-07-21] MEDS: LIDOCAINE 2% W/EPI 3 ML, BUPIVACAINE 0.5% (PF) 2 ML, HYALURONIDASE 150 UNIT INJ (14:52)
[2018-07-21 15:45] VITALS: BP 137/76; PULSE 76; RESP 16; TEMP 36.2; O2SAT 98
[2018-07-21 16:15] VITALS: BP 149/80; PULSE 72; RESP 16; TEMP 36.2; O2SAT 100
--- NOTE | 2018-07-21 17:22 | SUR.PHASEII ---
pt co's of pain about 2/10, took his own tylenol that had at 1615, ice to surgical sites , 1640 dressed ready to go home , no questions
== END 2018-07-21 16:40 | disposition home or self-care (01) ==
LOC: OR 13:03
PROVIDERS: PCP Family Medicine; Visit Provider Ophthalmology
PROC: (CPT 67917; principal; 2018-07-21 13:45)
DX: H02.105 Unspecified ectropion of left lower eyelid (principal); H02.102 Unspecified ectropion of right lower eyelid; E11.9 Type 2 diabetes mellitus without complications
CPT/HCPCS: 67917; J2704; J3470

== ENCOUNTER → 2018-10-08 14:24 | Outpatient (CLI) | payer MEDICARE, OTHER, SELFPAY ==
--- NOTE | 2018-10-08 | DI.RAD.S_ITS ---
PROCEDURE: XR FOOT LT MIN 3V INDICATIONS: HISTORY OF FOOT SURGERY TECHNIQUE: 3 views of the foot were acquired. COMPARISON: [facility], CR, XR FOOT LT MIN 3V, 04/15/2018, 11:55. FINDINGS: Bones: No fractures or dislocations. No suspicious bony lesions. Prior presumed osteotomy and K wire fixation crossing the first inter-phalangeal joint with a single staple-like device also crossing the interphalangeal joint also. Soft tissues: No tibiotalar joint effusion. Achilles tendon appears normal. IMPRESSION: Podiatry related procedure at the first inter-phalangeal joint with normal alignment established. Dictated by: Osman Hanson M.D. on 10/08/2018 at 14:47 Approved by: Osman Hanson M.D. on 10/08/2018 at 14:48
== END ==
PROVIDERS: PCP Family Medicine; Visit Provider Podiatrist
DX: Z45.89 Encounter for adjustment and management of other implanted devices (principal); Z98.890 Other specified postprocedural states; Z98.1 Arthrodesis status
CPT/HCPCS: 73630

== ENCOUNTER 2019-01-17 13:00 | Outpatient (RCR) | payer MEDICARE, OTHER, SELFPAY ==
--- NOTE | 2018-11-04 16:00 | PT.OIE ---
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 (11/04/18) Muscle weakness (generalized) (11/04/18) Other abnormalities of gait and mobility (11/04/18) Past Medical History (Last Reviewed 08/22/18 @ 23:08 by BESSY Ferguson) Snoring (Chronic) Provider Visit Care Team Role Provider Type Roger Du MD Attending Provider Physician Primary Care Provider Specialty: [facility] Address: [facility] [place], [place], [facility] Email: [email or web address] Physical Therapy Initial Evaluation PT-OP-A Visit Information Start: 11/04/18 17:40 Freq: Status: Active Protocol: Document 11/04/18 15:15 DCW (Rec: 11/04/18 18:07 DCW [id number]) Out-Patient Physical Therapy Visit Information Visit Information Visit Type Initial Evaluation Visit Start Time 15:15 Visit Stop Time 16:00 Total Visit Minutes 45 Visit Number 1 Number of COIN TELLER Visits 0 Evaluation Information Evaluation Date 11/04/18 PT-OP-B Current Condition Start: 11/04/18 17:40 Freq: Status: Active Protocol: Document 11/04/18 15:15 DCW (Rec: 11/04/18 18:07 DCW [id number]) Current Condition History of Current Condition Onset Date 4 years Current Complaints weakness, fatigue, imbalance, gait difficulty History of Current Condition Pt is an 83 year old male presenting with a long- standing history of weakness, gait difficulty, and imbalance 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 Pt was treated at this facility two years ago for this same deficit, and felt it helped at the time, but admits he has lost a lot of strength and stability since then. Pt reports he doesn't have a lot of strength, and even though he is doing most everything he is used to doing, it's all just more difficult now. Pt uses a 4WW for all gait and balance. Pt has ongoing left- sided weakness secondary to his prior CVA. 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 Treatment Goals Patient/Caregiver Goals I just want to make everything easier to do. Prior Functional Status Baseline Function- ADL's Modified Independent Baseline Function- Mobility Modified Independent PT-OP-C Subjective Start: 11/04/18 17:40 Freq: Status: Active Protocol: Document 11/04/18 15:15 DCW (Rec: 11/04/18 18:07 DCW [id number]) OP-PT Subjective Patient Comments Patient Comments I've slowly been getting worse since I was here last, but it's gotten to the point I really need to do something. Patient Reported Progress Worse PT-OP-D Balance Start: 11/04/18 17:40 Freq: Status: Active Protocol: Document 11/04/18 15:15 DCW (Rec: 11/04/18 18:07 DCW [id number]) OP-PT Balance Assessment Sitting Balance Static Sitting Balance Ability Normal Dynamic Sitting Balance Ability Normal Standing Balance Static Standing Balance Ability Fair Dynamic Standing Balance Ability Fair Balance Tests Miller Balance Test Miller Balance Test Score 34/56 Miller Impairment Rating 20 to 39% Impaired (Score 34- 44) Miller Balance Assessment Evaluation Sitting to Standing Ability Independent w/out Hands Unsupported Stance Safely- 2 minutes Sitting Unsupported, Feet on Floor Safely- 2 minutes Standing to Sitting Ability Assist, Control w/Hands Transfer Ability Safely, Hand Use Unsupported Stance- Eyes Closed Supervision, 10 seconds Unsupported Stance- Eyes Open Assist to attain, 15 secs Reaching Forward Standing Safely, 5 inches Pick- Up Object From Floor Supervision Look Behind Shoulder - Standing Turns Sideways Only Turning 360 Degrees Supervision/Verbal Cues Unsupported Stance, Alternating Feet on Assist to Prevent Fall Stair Unsupported Tandem Stance Holds Tandem- 30 seconds Unilateral Leg Stance Unable,assist to not fall Total Score Miller Total Score (out of 56 points) 34 Miller Impairment Rating 20 to 39% Impaired (Score 34- 44) Bo Fall Scale Copyright Permission PT-OP-E Functional Tests Start: 11/04/18 17:40 Freq: Status: Active Protocol: Document 11/04/18 15:15 DCW (Rec: 11/04/18 18:07 DCW [id number]) Functional Tests 6 Minute Walk Test Distance 715 Device Used 4WW Comments 1.99 ft/sec Dynamic Gait Index (DGI) Score 15/24 DGI Impairment Rating 20 to <40% Impaired (Score 15- 19) PT-OP-G Mobility & Gait Start: 11/04/18 17:40 Freq: Status: Active Protocol: Document 11/04/18 15:15 DCW (Rec: 11/04/18 18:07 DCW [id number]) OP Gait Assessment Gait Gait Assistance Required: Independent Distance (Feet) 715 Able to Maintain Weight Bearing Status Yes During Gait Assistive Devices Assistive Device Gait Belt 4 Wheeled Walker Gait Deviations General Gait Pattern Antalgic Decreased Feet Clearance Flexed Trunk Lateral Trunk Lean Narrow Based Gait Factors Limiting Gait Function Factors Limiting Gait Function Decreased Strength Limited Range of Motion Pain Comments Gait Comments Pt ambulates with his left foot externally rotated 30?, and hits his left foot on the heel of his right foot during left swing phase ~30% of the time. Stair Climbing Evaluation Evaluation Level of Assist On Stairs Independent Devices Stair Climbing Assistive Devices Left Railing Right Railing Technique/Endurance Stair Climbing Direction Ascend and Descend Stair Climbing Technique Step Over Step Number of Steps Climbed 3 Stair Climbing Set # Repetitions (reps) 2 PT-OP-M Strength Start: 11/04/18 17:40 Freq: Status: Active Protocol: Document 11/04/18 15:15 DCW (Rec: 11/04/18 18:07 DCW [id number]) Hip Strength Hip Manual Muscle Testing Right Flexion (L2) 4- Good- Abduction 4- Good- Adduction 4- Good- External Rotation 4 Good Internal Rotation 4 Good Left Flexion (L2) 3- Fair- Abduction 3+ Fair+ Adduction 4- Good- External Rotation 3+ Fair+ Internal Rotation 3 Fair Knee Strength Knee Manual Muscle Testing Right Flexion (S2) 4+ Good+ Extension (L3) 4+ Good+ Left Flexion (S2) 4- Good- Extension (L3) 4+ Good+ Ankle/Foot Strength Ankle and Foot Manual Muscle Testing Right Dorsiflexion (L4) 4 Good Left Dorsiflexion (L4) 3- Fair- PT-OP-T Assessment and Plan Start: 11/04/18 17:40 Freq: Status: Active Protocol: Document 11/04/18 15:15 DCW (Rec: 11/04/18 18:07 DCW [id number]) Physical Therapy Assessment Rehab Potential Rehabilitation Potential Good Evaluation Complexity Number of Personal Factors/Comorbidities 3 or More Number of Body Systems Impaired 3 Clinical Presentation at Evaluation Evolving Impairments Impairments Activity Tolerance Balance Functional Activities Functional Mobility Gait Pain ROM Soft Tissue Mobility Strength Other Concerns Fall Risk yes, per Miller (34/56) and DGI () Goals Four Impairment Pt demonstrates LE weakness, especially on his left side Sod Farmer Goal (LTG) Pt to improve MMT of his left LE to grossly 4-/5 LTG Duration 01/04/19 Three Impairment Pt at a falls risk per Miller ( 34/56) and DGI () Short Term Goal (STG) Pt to score 42/56 on Miller Balance Test to demonstrate a decreased falls risk STG Duration 12/04/18 Retirement Goal (LTG) Pt to score 20/24 on DGI to demonstrate a decreased falls risk LTG Duration 01/04/19 Two Impairment Pt walks at a pace of 1.99 feet/sec Sod Farmer Goal (LTG) Pt to ambulate at a pace of 2. 3 feet per second over his 6 MWT (828') to improve his ability to ambulate quickly around [employer] LTG Duration 01/04/19 One Impairment Pt does not have an appropriate home exercise program Short Term Goal (STG) Pt to be independent and compliant with an appropriate HEP STG Duration 12/04/18 Assessment Summary Assessment Pt presents with generalized weakness, deconditioning, and poor balance 4 years s/p CVA. Pt has previously been treated at this clinic for this same deficit, and responded well to therapy, however this was two years ago and pt has been declining recently. 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 Pt is a a very similar level of function that he was two years ago at the start of his previous therapy sessions, with a 6 MWT score of 715' ( prior was 623') and a Miller score of 34/56 (prior 35/56), and he was able to increase both those sores significantly last time, demonstrating a good rehab potential. Pt should benefit from skilled therapy focusing on LE strengthening, gait training, balance training, and improved activity tolerance. Physical Therapy Plan Frequency and Duration Frequency of Treatment 2x/Week Duration of Treatment 12 weeks Plan of Care Start Date 11/04/18 Plan of Care End Date 01/27/19 Therapeutic Interventions Therapeutic Interventions Aquatic Therapy Balance Training Home Exercise Program Joint Mobilizations Manual Therapy Neuromuscular Re-education Patient/Caregiver Education Self-Care/Home Management Soft Tissue Mobilization Therapeutic Activities Therapeutic Exercises Modalities Cold Pack/Ice Massage Electric Stimulation Hot Packs Ultrasound Next Visit Focus/Plan Next Note Type Treatment Note Next Visit Plan Activity tolerance, Balance training, Strengthening
--- NOTE | 2018-11-18 10:52 | PT.OTN ---
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 (11/18/18) Muscle weakness (generalized) (11/18/18) Other abnormalities of gait and mobility (11/18/18) Physical Therapy Treatment Note PT-OP-A Visit Information Start: 11/04/18 17:40 Freq: Status: Active Protocol: Document 11/18/18 10:37 AMH (Rec: 11/18/18 10:52 AMH [id number]) Out-Patient Physical Therapy Visit Information Visit Information Visit Type Treatment Note Visit Start Time 09:00 Visit Stop Time 09:45 Total Visit Minutes 45 Visit Number 2 Number of PBX INSTALLER Visits 0 Evaluation Information Evaluation Date 11/04/18 PT-OP-B Current Condition Start: 11/04/18 17:40 Freq: Status: Active Protocol: Document 11/04/18 15:15 DCW (Rec: 11/04/18 18:07 DCW [id number]) Current Condition History of Current Condition Onset Date 4 years Current Complaints weakness, fatigue, imbalance, gait difficulty History of Current Condition Pt is an 83 year old male presenting with a long- standing history of weakness, gait difficulty, and imbalance 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 Pt was treated at this facility two years ago for this same deficit, and felt it helped at the time, but admits he has lost a lot of strength and stability since then. Pt reports he doesn't have a lot of strength, and even though he is doing most everything he is used to doing, it's all just more difficult now. Pt uses a 4WW for all gait and balance. Pt has ongoing left- sided weakness secondary to his prior CVA. 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 Treatment Goals Patient/Caregiver Goals I just want to make everything easier to do. Prior Functional Status Baseline Function- ADL's Modified Independent Baseline Function- Mobility Modified Independent PT-OP-C Subjective Start: 11/04/18 17:40 Freq: Status: Active Protocol: Document 11/04/18 15:15 DCW (Rec: 11/04/18 18:07 DCW [id number]) OP-PT Subjective Patient Comments Patient Comments I've slowly been getting worse since I was here last, but it's gotten to the point I really need to do something. Patient Reported Progress Worse PT-OP-D Balance Start: 11/04/18 17:40 Freq: Status: Active Protocol: Document 11/04/18 15:15 DCW (Rec: 11/04/18 18:07 DCW [id number]) OP-PT Balance Assessment Sitting Balance Static Sitting Balance Ability Normal Dynamic Sitting Balance Ability Normal Standing Balance Static Standing Balance Ability Fair Dynamic Standing Balance Ability Fair Balance Tests Miller Balance Test Miller Balance Test Score 34/56 Miller Impairment Rating 20 to 39% Impaired (Score 34- 44) Miller Balance Assessment Evaluation Sitting to Standing Ability Independent w/out Hands Unsupported Stance Safely- 2 minutes Sitting Unsupported, Feet on Floor Safely- 2 minutes Standing to Sitting Ability Assist, Control w/Hands Transfer Ability Safely, Hand Use Unsupported Stance- Eyes Closed Supervision, 10 seconds Unsupported Stance- Eyes Open Assist to attain, 15 secs Reaching Forward Standing Safely, 5 inches Pick- Up Object From Floor Supervision Look Behind Shoulder - Standing Turns Sideways Only Turning 360 Degrees Supervision/Verbal Cues Unsupported Stance, Alternating Feet on Assist to Prevent Fall Stair Unsupported Tandem Stance Holds Tandem- 30 seconds Unilateral Leg Stance Unable,assist to not fall Total Score Miller Total Score (out of 56 points) 34 Miller Impairment Rating 20 to 39% Impaired (Score 34- 44) Bo Fall Scale Copyright Permission PT-OP-E Functional Tests Start: 11/04/18 17:40 Freq: Status: Active Protocol: Document 11/04/18 15:15 DCW (Rec: 11/04/18 18:07 DCW [id number]) Functional Tests 6 Minute Walk Test Distance 715 Device Used 4WW Comments 1.99 ft/sec Dynamic Gait Index (DGI) Score 15/24 DGI Impairment Rating 20 to <40% Impaired (Score 15- 19) PT-OP-G Mobility & Gait Start: 11/04/18 17:40 Freq: Status: Active Protocol: Document 11/04/18 15:15 DCW (Rec: 11/04/18 18:07 DCW [id number]) OP Gait Assessment Gait Gait Assistance Required: Independent Distance (Feet) 715 Able to Maintain Weight Bearing Status Yes During Gait Assistive Devices Assistive Device Gait Belt 4 Wheeled Walker Gait Deviations General Gait Pattern Antalgic Decreased Feet Clearance Flexed Trunk Lateral Trunk Lean Narrow Based Gait Factors Limiting Gait Function Factors Limiting Gait Function Decreased Strength Limited Range of Motion Pain Comments Gait Comments Pt ambulates with his left foot externally rotated 30?, and hits his left foot on the heel of his right foot during left swing phase ~30% of the time. Stair Climbing Evaluation Evaluation Level of Assist On Stairs Independent Devices Stair Climbing Assistive Devices Left Railing Right Railing Technique/Endurance Stair Climbing Direction Ascend and Descend Stair Climbing Technique Step Over Step Number of Steps Climbed 3 Stair Climbing Set # Repetitions (reps) 2 PT-OP-M Strength Start: 11/04/18 17:40 Freq: Status: Active Protocol: Document 11/04/18 15:15 DCW (Rec: 11/04/18 18:07 DCW [id number]) Hip Strength Hip Manual Muscle Testing Right Flexion (L2) 4- Good- Abduction 4- Good- Adduction 4- Good- External Rotation 4 Good Internal Rotation 4 Good Left Flexion (L2) 3- Fair- Abduction 3+ Fair+ Adduction 4- Good- External Rotation 3+ Fair+ Internal Rotation 3 Fair Knee Strength Knee Manual Muscle Testing Right Flexion (S2) 4+ Good+ Extension (L3) 4+ Good+ Left Flexion (S2) 4- Good- Extension (L3) 4+ Good+ Ankle/Foot Strength Ankle and Foot Manual Muscle Testing Right Dorsiflexion (L4) 4 Good Left Dorsiflexion (L4) 3- Fair- PT-OP-Q Treatments Start: 11/04/18 17:40 Freq: Status: Active Protocol: Document 11/18/18 10:37 AMH (Rec: 11/18/18 10:52 AMH [email or web address]) Cardio Equipment Recumbent Elliptical (Biodex) Duration (Minutes) 5 Resistance 3 Gym Equipment Shuttle Recovery Bilateral Squats Details bilateral squats Resistance 75# Reps/Time 3 x 10 reps Therapeutic Exercises Standing Exercises 6 Standing Exercise Name sit-stand with support Reps/Minutes x 10 Comments in parallel bars, cues to engage the abdomen 5 Standing Exercise Name standing marches holding knee up at the top 4 Standing Exercise Name side steps in parallel bars 3 Standing Exercise Name standing YG stretch and runners stretch 2 Standing Exercise Name standing toe raises and alternating toe taps Reps/Minutes 2 x 10 reps 1 Standing Exercise Name standing calf raises Reps/Minutes 2 x 10 Neuro Re-Education Treatment Other Activities 3 Details grzegorz steps with hip activation Comments in parallel bars 2 Details standing balance board Comments in parallel bars for support 1 Details standing balance feet together Comments added in pertibations forward/ back PT-OP-T Assessment and Plan Start: 11/04/18 17:40 Freq: Status: Active Protocol: Document 11/18/18 10:37 AMH (Rec: 11/18/18 10:52 [facility] TO [facility] [email or web address]) Physical Therapy Assessment Assessment Summary Assessment worked on ankle strategy today as Flako reports when he looses balance it is in a forward direction. He has limited ankle ROM especially DF. Added in ankle ROM for home and calf stretching. Began lateral hip stabilization and quad strengthening. Good tolerance for exercise and balance work . Physical Therapy Plan Frequency and Duration Frequency of Treatment 2x/Week Duration of Treatment 12 weeks Plan of Care Start Date 11/04/18 Plan of Care End Date 01/27/19 Next Visit Focus/Plan Next Note Type Treatment Note Next Visit Plan Continue to progress activity tolerance, balance training, and LE strengthening
--- NOTE | 2018-11-23 16:58 | PT.OTN ---
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 (11/23/18) Muscle weakness (generalized) (11/23/18) Other abnormalities of gait and mobility (11/23/18) Physical Therapy Treatment Note PT-OP-A Visit Information Start: 11/04/18 17:40 Freq: Status: Active Protocol: Document 11/23/18 16:51 GGD (Rec: 11/23/18 16:58 GGD [id number]) Out-Patient Physical Therapy Visit Information Visit Information Visit Type Treatment Note Visit Start Time 14:30 Visit Stop Time 15:10 Total Visit Minutes 40 Visit Number 3 Number of PHOTOGRAPHS CURATOR Visits 1 Evaluation Information Evaluation Date 11/04/18 PT-OP-B Current Condition Start: 11/04/18 17:40 Freq: Status: Active Protocol: Document 11/04/18 15:15 DCW (Rec: 11/04/18 18:07 DCW [id number]) Current Condition History of Current Condition Onset Date 4 years Current Complaints weakness, fatigue, imbalance, gait difficulty History of Current Condition Pt is an 83 year old male presenting with a long- standing history of weakness, gait difficulty, and imbalance 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 Pt was treated at this facility two years ago for this same deficit, and felt it helped at the time, but admits he has lost a lot of strength and stability since then. Pt reports he doesn't have a lot of strength, and even though he is doing most everything he is used to doing, it's all just more difficult now. Pt uses a 4WW for all gait and balance. Pt has ongoing left- sided weakness secondary to his prior CVA. 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 Treatment Goals Patient/Caregiver Goals I just want to make everything easier to do. Prior Functional Status Baseline Function- ADL's Modified Independent Baseline Function- Mobility Modified Independent PT-OP-C Subjective Start: 11/04/18 17:40 Freq: Status: Active Protocol: Document 11/04/18 15:15 DCW (Rec: 11/04/18 18:07 DCW [id number]) OP-PT Subjective Patient Comments Patient Comments I've slowly been getting worse since I was here last, but it's gotten to the point I really need to do something. Patient Reported Progress Worse PT-OP-D Balance Start: 11/04/18 17:40 Freq: Status: Active Protocol: Document 11/04/18 15:15 DCW (Rec: 11/04/18 18:07 DCW [id number]) OP-PT Balance Assessment Sitting Balance Static Sitting Balance Ability Normal Dynamic Sitting Balance Ability Normal Standing Balance Static Standing Balance Ability Fair Dynamic Standing Balance Ability Fair Balance Tests Miller Balance Test Miller Balance Test Score 34/56 Miller Impairment Rating 20 to 39% Impaired (Score 34- 44) Miller Balance Assessment Evaluation Sitting to Standing Ability Independent w/out Hands Unsupported Stance Safely- 2 minutes Sitting Unsupported, Feet on Floor Safely- 2 minutes Standing to Sitting Ability Assist, Control w/Hands Transfer Ability Safely, Hand Use Unsupported Stance- Eyes Closed Supervision, 10 seconds Unsupported Stance- Eyes Open Assist to attain, 15 secs Reaching Forward Standing Safely, 5 inches Pick- Up Object From Floor Supervision Look Behind Shoulder - Standing Turns Sideways Only Turning 360 Degrees Supervision/Verbal Cues Unsupported Stance, Alternating Feet on Assist to Prevent Fall Stair Unsupported Tandem Stance Holds Tandem- 30 seconds Unilateral Leg Stance Unable,assist to not fall Total Score Miller Total Score (out of 56 points) 34 Miller Impairment Rating 20 to 39% Impaired (Score 34- 44) Bo Fall Scale Copyright Permission PT-OP-E Functional Tests Start: 11/04/18 17:40 Freq: Status: Active Protocol: Document 11/04/18 15:15 DCW (Rec: 11/04/18 18:07 DCW [id number]) Functional Tests 6 Minute Walk Test Distance 715 Device Used 4WW Comments 1.99 ft/sec Dynamic Gait Index (DGI) Score 1524 DGI Impairment Rating 20 to <40% Impaired (Score 15- 19) PT-OP-G Mobility & Gait Start: 11/04/18 17:40 Freq: Status: Active Protocol: Document 11/04/18 15:15 DCW (Rec: 11/04/18 18:07 DCW [id number]) OP Gait Assessment Gait Gait Assistance Required: Independent Distance (Feet) 715 Able to Maintain Weight Bearing Status Yes During Gait Assistive Devices Assistive Device Gait Belt 4 Wheeled Walker Gait Deviations General Gait Pattern Antalgic Decreased Feet Clearance Flexed Trunk Lateral Trunk Lean Narrow Based Gait Factors Limiting Gait Function Factors Limiting Gait Function Decreased Strength Limited Range of Motion Pain Comments Gait Comments Pt ambulates with his left foot externally rotated 30?, and hits his left foot on the heel of his right foot during left swing phase ~30% of the time. Stair Climbing Evaluation Evaluation Level of Assist On Stairs Independent Devices Stair Climbing Assistive Devices Left Railing Right Railing Technique/Endurance Stair Climbing Direction Ascend and Descend Stair Climbing Technique Step Over Step Number of Steps Climbed 3 Stair Climbing Set # Repetitions (reps) 2 PT-OP-M Strength Start: 11/04/18 17:40 Freq: Status: Active Protocol: Document 11/04/18 15:15 DCW (Rec: 11/04/18 18:07 DCW [id number]) Hip Strength Hip Manual Muscle Testing Right Flexion (L2) 4- Good- Abduction 4- Good- Adduction 4- Good- External Rotation 4 Good Internal Rotation 4 Good Left Flexion (L2) 3- Fair- Abduction 3+ Fair+ Adduction 4- Good- External Rotation 3+ Fair+ Internal Rotation 3 Fair Knee Strength Knee Manual Muscle Testing Right Flexion (S2) 4+ Good+ Extension (L3) 4+ Good+ Left Flexion (S2) 4- Good- Extension (L3) 4+ Good+ Ankle/Foot Strength Ankle and Foot Manual Muscle Testing Right Dorsiflexion (L4) 4 Good Left Dorsiflexion (L4) 3- Fair- PT-OP-Q Treatments Start: 11/04/18 17:40 Freq: Status: Active Protocol: Document 11/23/18 16:51 GGD (Rec: 11/23/18 16:58 GGD [id number]) Cardio Equipment Recumbent Elliptical (Biodex) Duration (Minutes) 5 Resistance 3 Gym Equipment Shuttle Recovery Unilateral Squats Resistance 37 # Shuttle Recovery Platform Stable Reps/Time 20 x Bilateral Squats Details bilateral squats Resistance 75# Reps/Time 2 x 20 reps Therapeutic Exercises Sitting Exercises hamstring curls Sitting Exercise Name hamstring curls Side bilateral Resistance level 2 Reps/Minutes 20 hip abd Sitting Exercise Name hip abd with band around knees Side bilateral Resistance Level 3 Reps/Minutes 20 Standing Exercises 6 Standing Exercise Name sit-stand with support Reps/Minutes x 10 Comments in parallel bars, cues to engage the abdomen 5 Standing Exercise Name standing marches holding knee up at the top 4 Standing Exercise Name side steps 3 Standing Exercise Name standing YG stretch 2 Standing Exercise Name standing toe raises and alternating toe taps Reps/Minutes 2 x 10 reps 1 Standing Exercise Name standing calf raises Reps/Minutes 2 x 10 Neuro Re-Education Treatment Other Activities 2 Details standing balance board Comments in parallel bars for support 1 Details standing balance feet together Comments added in pertibations forward/ back PT-OP-T Assessment and Plan Start: 11/04/18 17:40 Freq: Status: Active Protocol: Document 11/23/18 16:51 GGD (Rec: 11/23/18 16:58 GGD [id number]) Physical Therapy Assessment Assessment Summary Assessment Pt fatigued quickly. He had did need rest breaks. He had mild LOB with balance activities. Physical Therapy Plan Frequency and Duration Frequency of Treatment 2x/Week Duration of Treatment 12 weeks Plan of Care Start Date 11/04/18 Plan of Care End Date 01/27/19 Next Visit Focus/Plan Next Note Type Treatment Note Next Visit Plan Continue to progress activity tolerance, balance training, and LE strengthening
--- NOTE | 2018-11-29 17:13 | PT.OTN ---
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 (11/29/18) Muscle weakness (generalized) (11/29/18) Other abnormalities of gait and mobility (11/29/18) Physical Therapy Treatment Note PT-OP-A Visit Information Start: 11/04/18 17:40 Freq: Status: Active Protocol: Document 11/29/18 17:07 EA (Rec: 11/29/18 17:13 EA [id number]) Out-Patient Physical Therapy Visit Information Visit Information Visit Type Treatment Note Visit Start Time 16:00 Visit Stop Time 16:40 Total Visit Minutes 40 Visit Number 4 PT-OP-B Current Condition Start: 11/04/18 17:40 Freq: Status: Active Protocol: Document 11/04/18 15:15 DCW (Rec: 11/04/18 18:07 DCW [id number]) Current Condition History of Current Condition Onset Date 4 years Current Complaints weakness, fatigue, imbalance, gait difficulty History of Current Condition Pt is an 83 year old male presenting with a long- standing history of weakness, gait difficulty, and imbalance 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 Pt was treated at this facility two years ago for this same deficit, and felt it helped at the time, but admits he has lost a lot of strength and stability since then. Pt reports he doesn't have a lot of strength, and even though he is doing most everything he is used to doing, it's all just more difficult now. Pt uses a 4WW for all gait and balance. Pt has ongoing left- sided weakness secondary to his prior CVA. 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 Treatment Goals Patient/Caregiver Goals I just want to make everything easier to do. Prior Functional Status Baseline Function- ADL's Modified Independent Baseline Function- Mobility Modified Independent PT-OP-C Subjective Start: 11/04/18 17:40 Freq: Status: Active Protocol: Document 11/29/18 17:07 EA (Rec: 11/29/18 17:13 EA [id number]) OP-PT Subjective Patient Comments Patient Comments I am currently doing NUSTEP exercises at home. Patient Reported Progress Same PT-OP-D Balance Start: 11/04/18 17:40 Freq: Status: Active Protocol: Document 06/27/19 15:15 DCW (Rec: 11/04/18 18:07 DCW [id number]) OP-PT Balance Assessment Sitting Balance Static Sitting Balance Ability Normal Dynamic Sitting Balance Ability Normal Standing Balance Static Standing Balance Ability Fair Dynamic Standing Balance Ability Fair Balance Tests Miller Balance Test Miller Balance Test Score 34/56 Millre Impairment Rating 20 to 39% Impaired (Score 34- 44) Miller Balance Assessment Evaluation Sitting to Standing Ability Independent w/out Hands Unsupported Stance Safely- 2 minutes Sitting Unsupported, Feet on Floor Safely- 2 minutes Standing to Sitting Ability Assist, Control w/Hands Transfer Ability Safely, Hand Use Unsupported Stance- Eyes Closed Supervision, 10 seconds Unsupported Stance- Eyes Open Assist to attain, 15 secs Reaching Forward Standing Safely, 5 inches Pick- Up Object From Floor Supervision Look Behind Shoulder - Standing Turns Sideways Only Turning 360 Degrees Supervision/Verbal Cues Unsupported Stance, Alternating Feet on Assist to Prevent Fall Stair Unsupported Tandem Stance Holds Tandem- 30 seconds Unilateral Leg Stance Unable,assist to not fall Total Score Miller Total Score (out of 56 points) 34 Miller Impairment Rating 20 to 39% Impaired (Score 34- 44) Bo Fall Scale Copyright Permission PT-OP-E Functional Tests Start: 11/04/18 17:40 Freq: Status: Active Protocol: Document 11/04/18 15:15 DCW (Rec: 11/04/18 18:07 DC [id number]) Functional Tests 6 Minute Walk Test Distance 715 Device Used 4WW Comments 1.99 ft/sec Dynamic Gait Index (DGI) Score 15/24 DGI Impairment Rating 20 to <40% Impaired (Score 15- 19) PT-OP-G Mobility & Gait Start: 11/04/18 17:40 Freq: Status: Active Protocol: Document 11/04/18 15:15 DCW (Rec: 11/04/18 18:07 DCW [id number]) OP Gait Assessment Gait Gait Assistance Required: Independent Distance (Feet) 715 Able to Maintain Weight Bearing Status Yes During Gait Assistive Devices Assistive Device Gait Belt 4 Wheeled Walker Gait Deviations General Gait Pattern Antalgic Decreased Feet Clearance Flexed Trunk Lateral Trunk Lean Narrow Based Gait Factors Limiting Gait Function Factors Limiting Gait Function Decreased Strength Limited Range of Motion Pain Comments Gait Comments Pt ambulates with his left foot externally rotated 30?, and hits his left foot on the heel of his right foot during left swing phase ~30% of the time. Stair Climbing Evaluation Evaluation Level of Assist On Stairs Independent Devices Stair Climbing Assistive Devices Left Railing Right Railing Technique/Endurance Stair Climbing Direction Ascend and Descend Stair Climbing Technique Step Over Step Number of Steps Climbed 3 Stair Climbing Set # Repetitions (reps) 2 PT-OP-M Strength Start: 11/04/18 17:40 Freq: Status: Active Protocol: Document 11/04/18 15:15 DCW (Rec: 11/04/18 18:07 DCW [id number]) Hip Strength Hip Manual Muscle Testing Right Flexion (L2) 4- Good- Abduction 4- Good- Adduction 4- Good- External Rotation 4 Good Internal Rotation 4 Good Left Flexion (L2) 3- Fair- Abduction 3+ Fair+ Adduction 4- Good- External Rotation 3+ Fair+ Internal Rotation 3 Fair Knee Strength Knee Manual Muscle Testing Right Flexion (S2) 4+ Good+ Extension (L3) 4+ Good+ Left Flexion (S2) 4- Good- Extension (L3) 4+ Good+ Ankle/Foot Strength Ankle and Foot Manual Muscle Testing Right Dorsiflexion (L4) 4 Good Left Dorsiflexion (L4) 3- Fair- PT-OP-Q Treatments Start: 11/04/18 17:40 Freq: Status: Active Protocol: Document 11/29/18 17:07 EA (Rec: 11/29/18 17:13 EA [id number]) Cardio Equipment Recumbent Elliptical (Biodex) Duration (Minutes) 5 Resistance 3 Gym Equipment Shuttle Recovery Unilateral Squats Resistance 37 # Shuttle Recovery Platform Stable Reps/Time 20 x Bilateral Squats Details bilateral squats Resistance 75# Reps/Time 2 x 20 reps Therapeutic Exercises Sitting Exercises 1 Sitting Exercise Name edge of table: bilta hip ER/IR Resistance Lv 1 and 2 Reps/Minutes x 12 reps hip abd Sitting Exercise Name hip abd with band around knees Side bilateral Resistance Level 3 Reps/Minutes 20 Standing Exercises 6 Standing Exercise Name sit-stand with support Reps/Minutes x 10 Comments in parallel bars, cues to engage the abdomen 4 Standing Exercise Name side steps 3 Standing Exercise Name standing YG stretch 2 Standing Exercise Name standing toe raises and alternating toe taps Reps/Minutes 2 x 10 reps 1 Standing Exercise Name standing calf raises Reps/Minutes 2 x 10 Neuro Re-Education Treatment Other Activities 3 Details grzegorz steps with hip activation Comments in parallel bars 2 Details standing balance board Comments in parallel bars for support 1 Details standing balance feet together Comments added in pertibations forward/ back PT-OP-T Assessment and Plan Start: 11/04/18 17:40 Freq: Status: Active Protocol: Document 11/29/18 17:07 EA (Rec: 11/29/18 17:13 EA [id number]) Physical Therapy Assessment Assessment Summary Assessment Weakness to both hip ER/IR/ extensors are evident during quck assessment. Hip exercises were recommended to perform at home. Physical Therapy Plan Next Visit Focus/Plan Next Note Type Treatment Note Next Visit Plan Continue to progress activity tolerance, balance training, and LE strengthening
--- NOTE | 2018-12-02 17:26 | PT.OTN ---
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 (12/02/18) Muscle weakness (generalized) (12/02/18) Other abnormalities of gait and mobility (12/02/18) Physical Therapy Treatment Note PT-OP-A Visit Information Start: 11/04/18 17:40 Freq: Status: Active Protocol: Document 12/02/18 16:45 DCW (Rec: 12/02/18 17:25 DCW [id number]) Out-Patient Physical Therapy Visit Information Visit Information Visit Type Treatment Note Visit Start Time 16:45 Visit Stop Time 17:30 Total Visit Minutes 45 Visit Number 5 Number of C WINFORMS DEVELOPER Visits 0 Evaluation Information Evaluation Date 11/04/18 PT-OP-B Current Condition Start: 11/04/18 17:40 Freq: Status: Active Protocol: Document 11/04/18 15:15 DCW (Rec: 11/04/18 18:07 DCW [id number]) Current Condition History of Current Condition Onset Date 4 years Current Complaints weakness, fatigue, imbalance, gait difficulty History of Current Condition Pt is an 83 year old male presenting with a long- standing history of weakness, gait difficulty, and imbalance 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 Pt was treated at this facility two years ago for this same deficit, and felt it helped at the time, but admits he has lost a lot of strength and stability since then. Pt reports he doesn't have a lot of strength, and even though he is doing most everything he is used to doing, it's all just more difficult now. Pt uses a 4WW for all gait and balance. Pt has ongoing left- sided weakness secondary to his prior CVA. 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 Treatment Goals Patient/Caregiver Goals I just want to make everything easier to do. Prior Functional Status Baseline Function- ADL's Modified Independent Baseline Function- Mobility Modified Independent PT-OP-C Subjective Start: 11/04/18 17:40 Freq: Status: Active Protocol: Document 12/02/18 16:45 DCW (Rec: 12/02/18 17:25 DCW [id number]) OP-PT Subjective Patient Comments Patient Comments Pt reports that he has been having a dull ache in his right side, only in certain positions, for the past week. PT-OP-D Balance Start: 11/04/18 17:40 Freq: Status: Active Protocol: Document 11/04/18 15:15 DCW (Rec: 11/04/18 18:07 DCW [id number]) OP-PT Balance Assessment Sitting Balance Static Sitting Balance Ability Normal Dynamic Sitting Balance Ability Normal Standing Balance Static Standing Balance Ability Fair Dynamic Standing Balance Ability Fair Balance Tests Miller Balance Test Miller Balance Test Score 34/56 Miller Impairment Rating 20 to 39% Impaired (Score 34- 44) Miller Balance Assessment Evaluation Sitting to Standing Ability Independent w/out Hands Unsupported Stance Safely- 2 minutes Sitting Unsupported, Feet on Floor Safely- 2 minutes Standing to Sitting Ability Assist, Control w/Hands Transfer Ability Safely, Hand Use Unsupported Stance- Eyes Closed Supervision, 10 seconds Unsupported Stance- Eyes Open Assist to attain, 15 secs Reaching Forward Standing Safely, 5 inches Pick- Up Object From Floor Supervision Look Behind Shoulder - Standing Turns Sideways Only Turning 360 Degrees Supervision/Verbal Cues Unsupported Stance, Alternating Feet on Assist to Prevent Fall Stair Unsupported Tandem Stance Holds Tandem- 30 seconds Unilateral Leg Stance Unable,assist to not fall Total Score Miller Total Score (out of 56 points) 34 Miller Impairment Rating 20 to 39% Impaired (Score 34- 44) Bo Fall Scale Copyright Permission PT-OP-E Functional Tests Start: 11/04/18 17:40 Freq: Status: Active Protocol: Document 11/04/18 15:15 DCW (Rec: 11/04/18 18:07 DCW [id number]) Functional Tests 6 Minute Walk Test Distance 715 Device Used 4WW Comments 1.99 ft/sec Dynamic Gait Index (DGI) Score 15/24 DGI Impairment Rating 20 to <40% Impaired (Score 15- 19) PT-OP-G Mobility & Gait Start: 11/04/18 17:40 Freq: Status: Active Protocol: Document 11/04/18 15:15 DCW (Rec: 11/04/18 18:07 DCW [id number]) OP Gait Assessment Gait Gait Assistance Required: Independent Distance (Feet) 715 Able to Maintain Weight Bearing Status Yes During Gait Assistive Devices Assistive Device Gait Belt 4 Wheeled Walker Gait Deviations General Gait Pattern Antalgic Decreased Feet Clearance Flexed Trunk Lateral Trunk Lean Narrow Based Gait Factors Limiting Gait Function Factors Limiting Gait Function Decreased Strength Limited Range of Motion Pain Comments Gait Comments Pt ambulates with his left foot externally rotated 30?, and hits his left foot on the heel of his right foot during left swing phase ~30% of the time. Stair Climbing Evaluation Evaluation Level of Assist On Stairs Independent Devices Stair Climbing Assistive Devices Left Railing Right Railing Technique/Endurance Stair Climbing Direction Ascend and Descend Stair Climbing Technique Step Over Step Number of Steps Climbed 3 Stair Climbing Set # Repetitions (reps) 2 PT-OP-M Strength Start: 11/04/18 17:40 Freq: Status: Active Protocol: Document 11/04/18 15:15 DCW (Rec: 11/04/18 18:07 DCW [id number]) Hip Strength Hip Manual Muscle Testing Right Flexion (L2) 4- Good- Abduction 4- Good- Adduction 4- Good- External Rotation 4 Good Internal Rotation 4 Good Left Flexion (L2) 3- Fair- Abduction 3+ Fair+ Adduction 4- Good- External Rotation 3+ Fair+ Internal Rotation 3 Fair Knee Strength Knee Manual Muscle Testing Right Flexion (S2) 4+ Good+ Extension (L3) 4+ Good+ Left Flexion (S2) 4- Good- Extension (L3) 4+ Good+ Ankle/Foot Strength Ankle and Foot Manual Muscle Testing Right Dorsiflexion (L4) 4 Good Left Dorsiflexion (L4) 3- Fair- PT-OP-Q Treatments Start: 11/04/18 17:40 Freq: Status: Active Protocol: Document 12/02/18 16:45 DCW (Rec: 12/02/18 17:25 DCW [id number]) Cardio Equipment Recumbent Elliptical (Biodex) Duration (Minutes) 5 Resistance 3 Seat Position 11 Gym Equipment Shuttle Recovery Unilateral Squats Resistance 37 # Shuttle Recovery Platform Stable Reps/Time 20 x Bilateral Squats Details bilateral squats Resistance 75# Reps/Time 2 x 20 reps Therapeutic Exercises Sitting Exercises hip add Sitting Exercise Name adductor ball squeeze Equipment Used purple ball Reps/Minutes 5 second hold 1 Sitting Exercise Name edge of table: bilta hip ER/IR Resistance Lv 1 and 2 Reps/Minutes x 12 reps hamstring curls Sitting Exercise Name hamstring curls Side bilateral Resistance level 2 Reps/Minutes 20 hip abd Sitting Exercise Name hip abd with band around knees Side bilateral Resistance Level 3 Reps/Minutes 20 Standing Exercises 6 Standing Exercise Name sit-stand with support Reps/Minutes 2x5 Comments in parallel bars, cues to engage the abdomen 5 Standing Exercise Name standing marches holding knee up at the top 4 Standing Exercise Name side steps 3 Standing Exercise Name standing YG stretch 2 Standing Exercise Name standing toe raises and alternating toe taps Reps/Minutes x15 1 Standing Exercise Name standing calf raises Reps/Minutes x15 PT-OP-T Assessment and Plan Start: 11/04/18 17:40 Freq: Status: Active Protocol: Document 12/02/18 16:45 DCW (Rec: 12/02/18 17:25 DCW [id number]) Physical Therapy Assessment Impairments Impairments Activity Tolerance Balance Functional Activities Functional Mobility Gait Pain ROM Soft Tissue Mobility Strength Goals Four Impairment Pt demonstrates LE weakness, especially on his left side Nursing Home Goal (LTG) Pt to improve MMT of his left LE to grossly 4-/5 LTG Duration 01/04/19 Three Impairment Pt at a falls risk per Miller ( 34/56) and DGI (15/24) Short Term Goal (STG) Pt to score 42/56 on Miller Balance Test to demonstrate a decreased falls risk STG Duration 12/04/18 Ladle Cleaner Goal (LTG) Pt to score 20/24 on DGI to demonstrate a decreased falls risk LTG Duration 01/04/19 Two Impairment Pt walks at a pace of 1.99 feet/sec Ladle Cleaner Goal (LTG) Pt to ambulate at a pace of 2. 3 feet per second over his 6 MWT (828') to improve his ability to ambulate quickly around [employer] LTG Duration 01/04/19 One Impairment Pt does not have an appropriate home exercise program Short Term Goal (STG) Pt to be independent and compliant with an appropriate HEP STG Duration 12/04/18 Assessment Summary Assessment Pt's sore right side limited many of his movements, causing discomfort with some positions, however pt reported he was able to push through it and do it anyway. Physical Therapy Plan Frequency and Duration Frequency of Treatment 2x/Week Duration of Treatment 12 weeks Plan of Care Start Date 11/04/18 Plan of Care End Date 01/27/19 Therapeutic Interventions Therapeutic Interventions Aquatic Therapy Balance Training Home Exercise Program Joint Mobilizations Manual Therapy Neuromuscular Re-education Patient/Caregiver Education Self-Care/Home Management Soft Tissue Mobilization Therapeutic Activities Therapeutic Exercises Modalities Cold Pack/Ice Massage Electric Stimulation Hot Packs Ultrasound Next Visit Focus/Plan Next Note Type Treatment Note Next Visit Plan Continue to progress activity tolerance, balance training, and LE strengthening
--- NOTE | 2018-12-09 17:42 | PT.OTN ---
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 (12/09/18) Muscle weakness (generalized) (12/09/18) Other abnormalities of gait and mobility (12/09/18) Physical Therapy Treatment Note PT-OP-A Visit Information Start: 11/04/18 17:40 Freq: Status: Active Protocol: Document 12/09/18 17:40 EA (Rec: 12/09/18 17:42 EA [id number]) Out-Patient Physical Therapy Visit Information Visit Information Visit Type Treatment Note Visit Start Time 16:00 Visit Stop Time 16:40 Total Visit Minutes 40 Visit Number 6 Number of HUMAN RESOURCES DEPARTMENT SUPERVISOR Visits 0 PT-OP-B Current Condition Start: 11/04/18 17:40 Freq: Status: Active Protocol: Document 11/04/18 15:15 DCW (Rec: 11/04/18 18:07 DCW [id number]) Current Condition History of Current Condition Onset Date 4 years Current Complaints weakness, fatigue, imbalance, gait difficulty History of Current Condition Pt is an 83 year old male presenting with a long- standing history of weakness, gait difficulty, and imbalance 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 Pt was treated at this facility two years ago for this same deficit, and felt it helped at the time, but admits he has lost a lot of strength and stability since then. Pt reports he doesn't have a lot of strength, and even though he is doing most everything he is used to doing, it's all just more difficult now. Pt uses a 4WW for all gait and balance. Pt has ongoing left- sided weakness secondary to his prior CVA. 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 Treatment Goals Patient/Caregiver Goals I just want to make everything easier to do. Prior Functional Status Baseline Function- ADL's Modified Independent Baseline Function- Mobility Modified Independent PT-OP-C Subjective Start: 11/04/18 17:40 Freq: Status: Active Protocol: Document 12/09/18 17:40 EA (Rec: 12/09/18 17:42 EA [id number]) OP-PT Subjective Patient Comments Patient Comments Pt reports unable to perform HEP; lost his copy. PT-OP-D Balance Start: 11/04/18 17:40 Freq: Status: Active Protocol: Document 11/04/18 15:15 DCW (Rec: 11/04/18 18:07 DCW [id number]) OP-PT Balance Assessment Sitting Balance Static Sitting Balance Ability Normal Dynamic Sitting Balance Ability Normal Standing Balance Static Standing Balance Ability Fair Dynamic Standing Balance Ability Fair Balance Tests Miller Balance Test Miller Balance Test Score 34/56 Miller Impairment Rating 20 to 39% Impaired (Score 34- 44) Miller Balance Assessment Evaluation Sitting to Standing Ability Independent w/out Hands Unsupported Stance Safely- 2 minutes Sitting Unsupported, Feet on Floor Safely- 2 minutes Standing to Sitting Ability Assist, Control w/Hands Transfer Ability Safely, Hand Use Unsupported Stance- Eyes Closed Supervision, 10 seconds Unsupported Stance- Eyes Open Assist to attain, 15 secs Reaching Forward Standing Safely, 5 inches Pick- Up Object From Floor Supervision Look Behind Shoulder - Standing Turns Sideways Only Turning 360 Degrees Supervision/Verbal Cues Unsupported Stance, Alternating Feet on Assist to Prevent Fall Stair Unsupported Tandem Stance Holds Tandem- 30 seconds Unilateral Leg Stance Unable,assist to not fall Total Score Miller Total Score (out of 56 points) 34 Miller Impairment Rating 20 to 39% Impaired (Score 34- 44) Bo Fall Scale Copyright Permission PT-OP-E Functional Tests Start: 11/04/18 17:40 Freq: Status: Active Protocol: Document 11/04/18 15:15 DCW (Rec: 11/04/18 18:07 DC [id number]) Functional Tests 6 Minute Walk Test Distance 715 Device Used 4WW Comments 1.99 ft/sec Dynamic Gait Index (DGI) Score 15/24 DGI Impairment Rating 20 to <40% Impaired (Score 15- 19) PT-OP-G Mobility & Gait Start: 11/04/18 17:40 Freq: Status: Active Protocol: Document 11/04/18 15:15 DCW (Rec: 11/04/18 18:07 DCW [id number]) OP Gait Assessment Gait Gait Assistance Required: Independent Distance (Feet) 715 Able to Maintain Weight Bearing Status Yes During Gait Assistive Devices Assistive Device Gait Belt 4 Wheeled Walker Gait Deviations General Gait Pattern Antalgic Decreased Feet Clearance Flexed Trunk Lateral Trunk Lean Narrow Based Gait Factors Limiting Gait Function Factors Limiting Gait Function Decreased Strength Limited Range of Motion Pain Comments Gait Comments Pt ambulates with his left foot externally rotated 30?, and hits his left foot on the heel of his right foot during left swing phase ~30% of the time. Stair Climbing Evaluation Evaluation Level of Assist On Stairs Independent Devices Stair Climbing Assistive Devices Left Railing Right Railing Technique/Endurance Stair Climbing Direction Ascend and Descend Stair Climbing Technique Step Over Step Number of Steps Climbed 3 Stair Climbing Set # Repetitions (reps) 2 PT-OP-M Strength Start: 11/04/18 17:40 Freq: Status: Active Protocol: Document 11/04/18 15:15 DCW (Rec: 11/04/18 18:07 DCW [id number]) Hip Strength Hip Manual Muscle Testing Right Flexion (L2) 4- Good- Abduction 4- Good- Adduction 4- Good- External Rotation 4 Good Internal Rotation 4 Good Left Flexion (L2) 3- Fair- Abduction 3+ Fair+ Adduction 4- Good- External Rotation 3+ Fair+ Internal Rotation 3 Fair Knee Strength Knee Manual Muscle Testing Right Flexion (S2) 4+ Good+ Extension (L3) 4+ Good+ Left Flexion (S2) 4- Good- Extension (L3) 4+ Good+ Ankle/Foot Strength Ankle and Foot Manual Muscle Testing Right Dorsiflexion (L4) 4 Good Left Dorsiflexion (L4) 3- Fair- PT-OP-Q Treatments Start: 11/04/18 17:40 Freq: Status: Active Protocol: Document 12/09/18 17:40 EA (Rec: 12/09/18 17:42 EA [id number]) Cardio Equipment Recumbent Elliptical (Biodex) Duration (Minutes) 5 Resistance 3 Seat Position 11 Gym Equipment Shuttle Recovery Unilateral Squats Resistance 37 # Shuttle Recovery Platform Stable Reps/Time 20 x Bilateral Squats Details bilateral squats Resistance 100# Reps/Time 2 x 20 reps Therapeutic Exercises Standing Exercises 6 Standing Exercise Name sit-stand with support Reps/Minutes 2x5 Comments in parallel bars, cues to engage the abdomen 5 Standing Exercise Name standing marches holding knee up at the top 4 Standing Exercise Name side steps 3 Standing Exercise Name standing YG stretch 2 Standing Exercise Name standing toe raises and alternating toe taps Reps/Minutes x15 1 Standing Exercise Name standing calf raises Reps/Minutes x15 PT-OP-T Assessment and Plan Start: 11/04/18 17:40 Freq: Status: Active Protocol: Document 12/09/18 17:40 EA (Rec: 12/09/18 17:42 EA [id number]) Physical Therapy Assessment Assessment Summary Assessment Tolerated treatment well. Physical Therapy Plan Next Visit Focus/Plan Next Note Type Treatment Note Next Visit Plan Continue to progress activity tolerance, balance training, and LE strengthening
--- NOTE | 2018-12-13 14:23 | PT.OTN ---
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 (12/13/18) Muscle weakness (generalized) (12/13/18) Other abnormalities of gait and mobility (12/13/18) Physical Therapy Treatment Note PT-OP-A Visit Information Start: 11/04/18 17:40 Freq: Status: Active Protocol: Document 12/13/18 13:45 DCW (Rec: 12/13/18 14:23 DCW [id number]) Out-Patient Physical Therapy Visit Information Visit Information Visit Type Treatment Note Visit Start Time 13:45 Visit Stop Time 14:30 Total Visit Minutes 45 Visit Number 7 Number of MARINE CARGO SURVEYOR Visits 0 Evaluation Information Evaluation Date 11/04/18 PT-OP-B Current Condition Start: 11/04/18 17:40 Freq: Status: Active Protocol: Document 11/04/18 15:15 DCW (Rec: 11/04/18 18:07 DCW [id number]) Current Condition History of Current Condition Onset Date 4 years Current Complaints weakness, fatigue, imbalance, gait difficulty History of Current Condition Pt is an 83 year old male presenting with a long- standing history of weakness, gait difficulty, and imbalance 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 Pt was treated at this facility two years ago for this same deficit, and felt it helped at the time, but admits he has lost a lot of strength and stability since then. Pt reports he doesn't have a lot of strength, and even though he is doing most everything he is used to doing, it's all just more difficult now. Pt uses a 4WW for all gait and balance. Pt has ongoing left- sided weakness secondary to his prior CVA. 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 Treatment Goals Patient/Caregiver Goals I just want to make everything easier to do. Prior Functional Status Baseline Function- ADL's Modified Independent Baseline Function- Mobility Modified Independent PT-OP-C Subjective Start: 11/04/18 17:40 Freq: Status: Active Protocol: Document 12/13/18 13:45 DCW (Rec: 12/13/18 14:23 DCW [id number]) OP-PT Subjective Patient Comments Patient Comments Pt reports he spent a lot of time this weekend cleaning crabs, because his son caught a lot of them this year. PT-OP-D Balance Start: 11/04/18 17:40 Freq: Status: Active Protocol: Document 11/04/18 15:15 DCW (Rec: 11/04/18 18:07 DCW [id number]) OP-PT Balance Assessment Sitting Balance Static Sitting Balance Ability Normal Dynamic Sitting Balance Ability Normal Standing Balance Static Standing Balance Ability Fair Dynamic Standing Balance Ability Fair Balance Tests Miller Balance Test Miller Balance Test Score 34/56 Miller Impairment Rating 20 to 39% Impaired (Score 34- 44) Miller Balance Assessment Evaluation Sitting to Standing Ability Independent w/out Hands Unsupported Stance Safely- 2 minutes Sitting Unsupported, Feet on Floor Safely- 2 minutes Standing to Sitting Ability Assist, Control w/Hands Transfer Ability Safely, Hand Use Unsupported Stance- Eyes Closed Supervision, 10 seconds Unsupported Stance- Eyes Open Assist to attain, 15 secs Reaching Forward Standing Safely, 5 inches Pick- Up Object From Floor Supervision Look Behind Shoulder - Standing Turns Sideways Only Turning 360 Degrees Supervision/Verbal Cues Unsupported Stance, Alternating Feet on Assist to Prevent Fall Stair Unsupported Tandem Stance Holds Tandem- 30 seconds Unilateral Leg Stance Unable,assist to not fall Total Score Miller Total Score (out of 56 points) 34 Miller Impairment Rating 20 to 39% Impaired (Score 34- 44) Bo Fall Scale Copyright Permission PT-OP-E Functional Tests Start: 11/04/18 17:40 Freq: Status: Active Protocol: Document 11/04/18 15:15 DCW (Rec: 11/04/18 18:07 DC [id number]) Functional Tests 6 Minute Walk Test Distance 715 Device Used 4WW Comments 1.99 ft/sec Dynamic Gait Index (DGI) Score 15/24 DGI Impairment Rating 20 to <40% Impaired (Score 15- 19) PT-OP-G Mobility & Gait Start: 11/04/18 17:40 Freq: Status: Active Protocol: Document 11/04/18 15:15 DCW (Rec: 11/04/18 18:07 DCW [id number]) OP Gait Assessment Gait Gait Assistance Required: Independent Distance (Feet) 715 Able to Maintain Weight Bearing Status Yes During Gait Assistive Devices Assistive Device Gait Belt 4 Wheeled Walker Gait Deviations General Gait Pattern Antalgic Decreased Feet Clearance Flexed Trunk Lateral Trunk Lean Narrow Based Gait Factors Limiting Gait Function Factors Limiting Gait Function Decreased Strength Limited Range of Motion Pain Comments Gait Comments Pt ambulates with his left foot externally rotated 30?, and hits his left foot on the heel of his right foot during left swing phase ~30% of the time. Stair Climbing Evaluation Evaluation Level of Assist On Stairs Independent Devices Stair Climbing Assistive Devices Left Railing Right Railing Technique/Endurance Stair Climbing Direction Ascend and Descend Stair Climbing Technique Step Over Step Number of Steps Climbed 3 Stair Climbing Set # Repetitions (reps) 2 PT-OP-M Strength Start: 11/04/18 17:40 Freq: Status: Active Protocol: Document 11/04/18 15:15 DCW (Rec: 11/04/18 18:07 DCW [id number]) Hip Strength Hip Manual Muscle Testing Right Flexion (L2) 4- Good- Abduction 4- Good- Adduction 4- Good- External Rotation 4 Good Internal Rotation 4 Good Left Flexion (L2) 3- Fair- Abduction 3+ Fair+ Adduction 4- Good- External Rotation 3+ Fair+ Internal Rotation 3 Fair Knee Strength Knee Manual Muscle Testing Right Flexion (S2) 4+ Good+ Extension (L3) 4+ Good+ Left Flexion (S2) 4- Good- Extension (L3) 4+ Good+ Ankle/Foot Strength Ankle and Foot Manual Muscle Testing Right Dorsiflexion (L4) 4 Good Left Dorsiflexion (L4) 3- Fair- PT-OP-Q Treatments Start: 11/04/18 17:40 Freq: Status: Active Protocol: Document 12/13/18 13:45 DCW (Rec: 12/13/18 14:23 DCW [id number]) Cardio Equipment Recumbent Elliptical (Biodex) Duration (Minutes) 5 Resistance 4 Seat Position 11 Gym Equipment Shuttle Recovery Unilateral Squats Resistance 37 # Shuttle Recovery Platform Stable Reps/Time 20 x Bilateral Squats Details bilateral squats Resistance 100# Reps/Time 2 x 20 reps Therapeutic Exercises Sitting Exercises hip add Sitting Exercise Name adductor ball squeeze Equipment Used purple ball Reps/Minutes 5 second hold hamstring curls Sitting Exercise Name hamstring curls Side bilateral Resistance level 2 Reps/Minutes 20 hip abd Sitting Exercise Name hip abd with band around knees Side bilateral Resistance Level 3 Reps/Minutes 20 Standing Exercises 7 Standing Exercise Name Hip Abduction Side bilateral Resistance 4# 5 Standing Exercise Name standing marches holding knee up at the top Resistance 4# 4 Standing Exercise Name side steps 1 Standing Exercise Name standing calf raises Reps/Minutes x15 Neuro Re-Education Treatment Other Activities 3 Details lateral grzegorz step 1 Details standing balance feet together Comments perturbations, eyes closed PT-OP-T Assessment and Plan Start: 11/04/18 17:40 Freq: Status: Active Protocol: Document 12/13/18 13:45 DCW (Rec: 12/13/18 14:23 DCW [id number]) Physical Therapy Assessment Impairments Impairments Activity Tolerance Balance Functional Activities Functional Mobility Gait Pain ROM Soft Tissue Mobility Strength Goals Four Impairment Pt demonstrates LE weakness, especially on his left side Fdc Goal (LTG) Pt to improve MMT of his left LE to grossly 4-/5 LTG Duration 01/04/19 Three Impairment Pt at a falls risk per Miller ( 34/56) and DGI (15/24) Short Term Goal (STG) Pt to score 42/56 on Miller Balance Test to demonstrate a decreased falls risk STG Duration 12/04/18 Trombone Slide Assembler Goal (LTG) Pt to score 20/24 on DGI to demonstrate a decreased falls risk LTG Duration 01/04/19 Two Impairment Pt walks at a pace of 1.99 feet/sec Trombone Slide Assembler Goal (LTG) Pt to ambulate at a pace of 2. 3 feet per second over his 6 MWT (828') to improve his ability to ambulate quickly around [employer] LTG Duration 01/04/19 One Impairment Pt does not have an appropriate home exercise program Short Term Goal (STG) Pt to be independent and compliant with an appropriate HEP STG Duration 12/04/18 Assessment Summary Assessment Pt very fatigued today, required multiple rest breaks. Physical Therapy Plan Frequency and Duration Frequency of Treatment 2x/Week Duration of Treatment 12 weeks Plan of Care Start Date 11/04/18 Plan of Care End Date 01/27/19 Therapeutic Interventions Therapeutic Interventions Aquatic Therapy Balance Training Home Exercise Program Joint Mobilizations Manual Therapy Neuromuscular Re-education Patient/Caregiver Education Self-Care/Home Management Soft Tissue Mobilization Therapeutic Activities Therapeutic Exercises Modalities Cold Pack/Ice Massage Electric Stimulation Hot Packs Ultrasound Next Visit Focus/Plan Next Note Type Treatment Note Next Visit Plan Continue to progress activity tolerance, balance training, and LE strengthening
--- NOTE | 2018-12-30 16:58 | PT.OTN ---
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 (12/30/18) Muscle weakness (generalized) (12/30/18) Other abnormalities of gait and mobility (12/30/18) Physical Therapy Treatment Note PT-OP-A Visit Information Start: 11/04/18 17:40 Freq: Status: Active Protocol: Document 12/30/18 16:07 AW (Rec: 12/30/18 16:54 AW [id number]) Out-Patient Physical Therapy Visit Information Visit Information Visit Type Treatment Note Visit Start Time 14:30 Visit Stop Time 15:13 Total Visit Minutes 43 Visit Number 8 Number of RECREATIONAL THERAPIST Visits 0 Evaluation Information Evaluation Date 11/04/18 PT-OP-B Current Condition Start: 11/04/18 17:40 Freq: Status: Active Protocol: Document 11/04/18 15:15 DCW (Rec: 11/04/18 18:07 DCW [id number]) Current Condition History of Current Condition Onset Date 4 years Current Complaints weakness, fatigue, imbalance, gait difficulty History of Current Condition Pt is an 83 year old male presenting with a long- standing history of weakness, gait difficulty, and imbalance 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 Pt was treated at this facility two years ago for this same deficit, and felt it helped at the time, but admits he has lost a lot of strength and stability since then. Pt reports he doesn't have a lot of strength, and even though he is doing most everything he is used to doing, it's all just more difficult now. Pt uses a 4WW for all gait and balance. Pt has ongoing left- sided weakness secondary to his prior CVA. 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 Treatment Goals Patient/Caregiver Goals I just want to make everything easier to do. Prior Functional Status Baseline Function- ADL's Modified Independent Baseline Function- Mobility Modified Independent PT-OP-C Subjective Start: 11/04/18 17:40 Freq: Status: Active Protocol: Document 12/30/18 16:07 AW (Rec: 12/30/18 16:54 AW [id number]) OP-PT Subjective Patient Comments Patient Comments Pt reports he has continued using his NUSTEP at home. He has been performing his HEP 2x /week. After last visit, he had some trunk soreness for which he saw his doctor, but he doesn't believe it was related to treatment. PT-OP-D Balance Start: 11/04/18 17:40 Freq: Status: Active Protocol: Document 11/04/18 15:15 DCW (Rec: 11/04/18 18:07 DCW [id number]) OP-PT Balance Assessment Sitting Balance Static Sitting Balance Ability Normal Dynamic Sitting Balance Ability Normal Standing Balance Static Standing Balance Ability Fair Dynamic Standing Balance Ability Fair Balance Tests Miller Balance Test Miller Balance Test Score 34/56 Miller Impairment Rating 20 to 39% Impaired (Score 34- 44) Miller Balance Assessment Evaluation Sitting to Standing Ability Independent w/out Hands Unsupported Stance Safely- 2 minutes Sitting Unsupported, Feet on Floor Safely- 2 minutes Standing to Sitting Ability Assist, Control w/Hands Transfer Ability Safely, Hand Use Unsupported Stance- Eyes Closed Supervision, 10 seconds Unsupported Stance- Eyes Open Assist to attain, 15 secs Reaching Forward Standing Safely, 5 inches Pick- Up Object From Floor Supervision Look Behind Shoulder - Standing Turns Sideways Only Turning 360 Degrees Supervision/Verbal Cues Unsupported Stance, Alternating Feet on Assist to Prevent Fall Stair Unsupported Tandem Stance Holds Tandem- 30 seconds Unilateral Leg Stance Unable,assist to not fall Total Score Miller Total Score (out of 56 points) 34 Miller Impairment Rating 20 to 39% Impaired (Score 34- 44) Bo Fall Scale Copyright Permission PT-OP-E Functional Tests Start: 11/04/18 17:40 Freq: Status: Active Protocol: Document 11/04/18 15:15 DCW (Rec: 11/04/18 18:07 DC [id number]) Functional Tests 6 Minute Walk Test Distance 715 Device Used 4WW Comments 1.99 ft/sec Dynamic Gait Index (DGI) Score 15/24 DGI Impairment Rating 20 to <40% Impaired (Score 15- 19) PT-OP-G Mobility & Gait Start: 11/04/18 17:40 Freq: Status: Active Protocol: Document 11/04/18 15:15 DCW (Rec: 11/04/18 18:07 DCW [id number]) OP Gait Assessment Gait Gait Assistance Required: Independent Distance (Feet) 715 Able to Maintain Weight Bearing Status Yes During Gait Assistive Devices Assistive Device Gait Belt 4 Wheeled Walker Gait Deviations General Gait Pattern Antalgic Decreased Feet Clearance Flexed Trunk Lateral Trunk Lean Narrow Based Gait Factors Limiting Gait Function Factors Limiting Gait Function Decreased Strength Limited Range of Motion Pain Comments Gait Comments Pt ambulates with his left foot externally rotated 30?, and hits his left foot on the heel of his right foot during left swing phase ~30% of the time. Stair Climbing Evaluation Evaluation Level of Assist On Stairs Independent Devices Stair Climbing Assistive Devices Left Railing Right Railing Technique/Endurance Stair Climbing Direction Ascend and Descend Stair Climbing Technique Step Over Step Number of Steps Climbed 3 Stair Climbing Set # Repetitions (reps) 2 PT-OP-M Strength Start: 11/04/18 17:40 Freq: Status: Active Protocol: Document 11/04/18 15:15 DCW (Rec: 11/04/18 18:07 DCW [id number]) Hip Strength Hip Manual Muscle Testing Right Flexion (L2) 4- Good- Abduction 4- Good- Adduction 4- Good- External Rotation 4 Good Internal Rotation 4 Good Left Flexion (L2) 3- Fair- Abduction 3+ Fair+ Adduction 4- Good- External Rotation 3+ Fair+ Internal Rotation 3 Fair Knee Strength Knee Manual Muscle Testing Right Flexion (S2) 4+ Good+ Extension (L3) 4+ Good+ Left Flexion (S2) 4- Good- Extension (L3) 4+ Good+ Ankle/Foot Strength Ankle and Foot Manual Muscle Testing Right Dorsiflexion (L4) 4 Good Left Dorsiflexion (L4) 3- Fair- PT-OP-Q Treatments Start: 11/04/18 17:40 Freq: Status: Active Protocol: Document 12/30/18 16:07 AW (Rec: 12/30/18 16:54 AW [email or web address]) Cardio Equipment Recumbent Elliptical (Biodex) Duration (Minutes) 5 Resistance 5 Seat Position 11 Gym Equipment Shuttle Recovery Unilateral Squats Resistance 37 # Shuttle Recovery Platform Stable Reps/Time 20 x Bilateral Squats Details bilateral squats Resistance 100# Shuttle Recovery Platform Stable Reps/Time 2 x 20 reps Therapeutic Exercises Sitting Exercises hip add Sitting Exercise Name adductor ball squeeze Equipment Used purple ball Reps/Minutes 5 second hold Comments 1 x 20 reps hamstring curls Sitting Exercise Name hamstring curls Side bilateral Resistance level 2 Reps/Minutes 20 Standing Exercises standing eversion Standing Exercise Name standing eversion Side bilateral Equipment Used parallel bars Reps/Minutes 2 x 10 reps Comments verbal cues to flatten the inside of your foot 7 Standing Exercise Name Hip Abduction Side bilateral Resistance 5# Equipment Used parallel bars Comments Verbal cues to fade UE support on bars. 5 Standing Exercise Name standing marches holding knee up at the top Resistance 5# Reps/Minutes 2 x 10 reps Comments 1st set with weights; 2nd set without 4 Standing Exercise Name side steps Equipment Used parallel bars Reps/Minutes 6 feet each direction x 4 Comments without UE support; SBA/CGA required 1 Standing Exercise Name standing calf raises Equipment Used parallel bars Reps/Minutes x15 Comments Verbal cues for fading UE support Neuro Re-Education Treatment Other Activities 1 Details standing balance - feet together, eyes open, eyes closed, perturbations Reps/Duration 15 seconds x 2 each condition PT-OP-T Assessment and Plan Start: 11/04/18 17:40 Freq: Status: Active Protocol: Document 12/30/18 16:07 AW (Rec: 12/30/18 16:54 AW [email or web address]) Physical Therapy Assessment Impairments Impairments Activity Tolerance Balance Functional Activities Functional Mobility Gait Pain ROM Soft Tissue Mobility Strength Goals Four Impairment Pt demonstrates LE weakness, especially on his left side Siebel Administrator Goal (LTG) Pt to improve MMT of his left LE to grossly 4-/5 LTG Duration 01/04/19 Three Impairment Pt at a falls risk per Miller ( 34/56) and DGI (15/24) Short Term Goal (STG) Pt to score 42/56 on Miller Balance Test to demonstrate a decreased falls risk STG Duration 12/04/18 Siebel Administrator Goal (LTG) Pt to score 20/24 on DGI to demonstrate a decreased falls risk LTG Duration 01/04/19 Two Impairment Pt walks at a pace of 1.99 feet/sec Mcc Goal (LTG) Pt to ambulate at a pace of 2. 3 feet per second over his 6 MWT (828') to improve his ability to ambulate quickly around [employer] Short Term Goal (STG) Pt to be independent and compliant with an appropriate HEP STG Duration 12/04/18 Assessment Summary Assessment Pt eager to work today. He continues to exhibit significant left-sided weakness, evidenced by difficulty abducting and marching LLE with weight. Pt advised to perform his HEP more frequently in order to support therapy services provided in clinic, aiming for 3-4 times per week. Physical Therapy Plan Frequency and Duration Frequency of Treatment 2x/Week Duration of Treatment 12 weeks Plan of Care Start Date 11/04/18 Plan of Care End Date 01/27/19 Therapeutic Interventions Therapeutic Interventions Aquatic Therapy Balance Training Home Exercise Program Joint Mobilizations Manual Therapy Neuromuscular Re-education Patient/Caregiver Education Self-Care/Home Management Soft Tissue Mobilization Therapeutic Activities Therapeutic Exercises Modalities Cold Pack/Ice Massage Electric Stimulation Hot Packs Ultrasound Next Visit Focus/Plan Next Visit Plan Continue to progress activity tolerance, balance training, and LE strengthening. Plan to check in with pt about increasing HEP frequency.
--- NOTE | 2019-01-04 14:26 | PT.OTN ---
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 (01/04/19) Muscle weakness (generalized) (01/04/19) Other abnormalities of gait and mobility (01/04/19) Physical Therapy Treatment Note PT-OP-A Visit Information Start: 11/04/18 17:40 Freq: Status: Active Protocol: Document 01/04/19 13:45 DCW (Rec: 01/04/19 14:25 DCW [id number]) Out-Patient Physical Therapy Visit Information Visit Information Visit Type Treatment Note Visit Start Time 13:45 Visit Stop Time 14:30 Total Visit Minutes 45 Visit Number 9 Number of BLOWER FEEDER DYED RAW STOCK Visits 0 Evaluation Information Evaluation Date 11/04/18 PT-OP-B Current Condition Start: 11/04/18 17:40 Freq: Status: Active Protocol: Document 11/04/18 15:15 DCW (Rec: 11/04/18 18:07 DCW [id number]) Current Condition History of Current Condition Onset Date 4 years Current Complaints weakness, fatigue, imbalance, gait difficulty History of Current Condition Pt is an 83 year old male presenting with a long- standing history of weakness, gait difficulty, and imbalance 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 Pt was treated at this facility two years ago for this same deficit, and felt it helped at the time, but admits he has lost a lot of strength and stability since then. Pt reports he doesn't have a lot of strength, and even though he is doing most everything he is used to doing, it's all just more difficult now. Pt uses a 4WW for all gait and balance. Pt has ongoing left- sided weakness secondary to his prior CVA. 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 Treatment Goals Patient/Caregiver Goals I just want to make everything easier to do. Prior Functional Status Baseline Function- ADL's Modified Independent Baseline Function- Mobility Modified Independent PT-OP-C Subjective Start: 11/04/18 17:40 Freq: Status: Active Protocol: Document 01/04/19 13:45 DCW (Rec: 01/04/19 14:25 DCW [id number]) OP-PT Subjective Patient Comments Patient Comments Pt notes that he has been experiencing little bouts of dizziness when laying in bed recently. PT-OP-D Balance Start: 11/04/18 17:40 Freq: Status: Active Protocol: Document 11/04/18 15:15 DCW (Rec: 11/04/18 18:07 DCW [id number]) OP-PT Balance Assessment Sitting Balance Static Sitting Balance Ability Normal Dynamic Sitting Balance Ability Normal Standing Balance Static Standing Balance Ability Fair Dynamic Standing Balance Ability Fair Balance Tests Miller Balance Test Miller Balance Test Score 34/56 Miller Impairment Rating 20 to 39% Impaired (Score 34- 44) Miller Balance Assessment Evaluation Sitting to Standing Ability Independent w/out Hands Unsupported Stance Safely- 2 minutes Sitting Unsupported, Feet on Floor Safely- 2 minutes Standing to Sitting Ability Assist, Control w/Hands Transfer Ability Safely, Hand Use Unsupported Stance- Eyes Closed Supervision, 10 seconds Unsupported Stance- Eyes Open Assist to attain, 15 secs Reaching Forward Standing Safely, 5 inches Pick- Up Object From Floor Supervision Look Behind Shoulder - Standing Turns Sideways Only Turning 360 Degrees Supervision/Verbal Cues Unsupported Stance, Alternating Feet on Assist to Prevent Fall Stair Unsupported Tandem Stance Holds Tandem- 30 seconds Unilateral Leg Stance Unable,assist to not fall Total Score Miller Total Score (out of 56 points) 34 Miller Impairment Rating 20 to 39% Impaired (Score 34- 44) Bo Fall Scale Copyright Permission PT-OP-E Functional Tests Start: 11/04/18 17:40 Freq: Status: Active Protocol: Document 11/04/18 15:15 DCW (Rec: 11/04/18 18:07 DC [id number]) Functional Tests 6 Minute Walk Test Distance 715 Device Used 4WW Comments 1.99 ft/sec Dynamic Gait Index (DGI) Score 15/24 DGI Impairment Rating 20 to <40% Impaired (Score 15- 19) PT-OP-G Mobility & Gait Start: 11/04/18 17:40 Freq: Status: Active Protocol: Document 11/04/18 15:15 DCW (Rec: 11/04/18 18:07 DCW [id number]) OP Gait Assessment Gait Gait Assistance Required: Independent Distance (Feet) 715 Able to Maintain Weight Bearing Status Yes During Gait Assistive Devices Assistive Device Gait Belt 4 Wheeled Walker Gait Deviations General Gait Pattern Antalgic Decreased Feet Clearance Flexed Trunk Lateral Trunk Lean Narrow Based Gait Factors Limiting Gait Function Factors Limiting Gait Function Decreased Strength Limited Range of Motion Pain Comments Gait Comments Pt ambulates with his left foot externally rotated 30?, and hits his left foot on the heel of his right foot during left swing phase ~30% of the time. Stair Climbing Evaluation Evaluation Level of Assist On Stairs Independent Devices Stair Climbing Assistive Devices Left Railing Right Railing Technique/Endurance Stair Climbing Direction Ascend and Descend Stair Climbing Technique Step Over Step Number of Steps Climbed 3 Stair Climbing Set # Repetitions (reps) 2 PT-OP-M Strength Start: 11/04/18 17:40 Freq: Status: Active Protocol: Document 11/04/18 15:15 DCW (Rec: 11/04/18 18:07 DCW [id number]) Hip Strength Hip Manual Muscle Testing Right Flexion (L2) 4- Good- Abduction 4- Good- Adduction 4- Good- External Rotation 4 Good Internal Rotation 4 Good Left Flexion (L2) 3- Fair- Abduction 3+ Fair+ Adduction 4- Good- External Rotation 3+ Fair+ Internal Rotation 3 Fair Knee Strength Knee Manual Muscle Testing Right Flexion (S2) 4+ Good+ Extension (L3) 4+ Good+ Left Flexion (S2) 4- Good- Extension (L3) 4+ Good+ Ankle/Foot Strength Ankle and Foot Manual Muscle Testing Right Dorsiflexion (L4) 4 Good Left Dorsiflexion (L4) 3- Fair- PT-OP-O Vestibular Start: 01/04/19 14:25 Freq: Status: Active Protocol: Document 01/04/19 13:45 DCW (Rec: 01/04/19 14:26 DCW [id number]) Vestibular Assessment Positional Testing [place] Negative Left Negative Right Rolling Test Negative Left Negative Right Supine to Sit Negative PT-OP-Q Treatments Start: 11/04/18 17:40 Freq: Status: Active Protocol: Document 01/04/19 13:45 DCW (Rec: 01/04/19 14:25 DCW [id number]) Cardio Equipment Recumbent Elliptical (Biodex) Duration (Minutes) 5 Resistance 5 Seat Position 11 Gym Equipment Shuttle Recovery Unilateral Squats Resistance 37 # Shuttle Recovery Platform Stable Reps/Time 20 x Bilateral Squats Details bilateral squats Resistance 100# Shuttle Recovery Platform Stable Reps/Time 2 x 20 reps Therapeutic Exercises Standing Exercises 7 Standing Exercise Name Hip Abduction Side bilateral Resistance 5# Equipment Used parallel bars Comments Verbal cues to fade UE support on bars. 5 Standing Exercise Name standing marches holding knee up at the top Resistance 5# Reps/Minutes 2 x 10 reps 4 Standing Exercise Name side steps Equipment Used parallel bars Reps/Minutes 6 feet each direction x 4 Comments without UE support; SBA/CGA required 1 Standing Exercise Name standing calf raises Equipment Used parallel bars Reps/Minutes x15 Comments Verbal cues for fading UE support Manual Therapy Treatment Other Other Manual Treatments Positional testing Neuro Re-Education Treatment Other Activities 3 Details lateral grzegorz step 1 Details standing balance feet together Comments perturbations, eyes closed PT-OP-T Assessment and Plan Start: 11/04/18 17:40 Freq: Status: Active Protocol: Document 01/04/19 13:45 DCW (Rec: 01/04/19 14:25 DCW [id number]) Physical Therapy Assessment Impairments Impairments Activity Tolerance Balance Functional Activities Functional Mobility Gait Pain ROM Soft Tissue Mobility Strength Goals Four Impairment Pt demonstrates LE weakness, especially on his left side Superintendent Custodian Janitor Goal (LTG) Pt to improve MMT of his left LE to grossly 4-/5 LTG Duration 01/04/19 Three Impairment Pt at a falls risk per Miller ( 34/56) and DGI (15/24) Short Term Goal (STG) Pt to score 42/56 on Miller Balance Test to demonstrate a decreased falls risk STG Duration 12/04/18 [facility] Goal (LTG) Pt to score 20/24 on DGI to demonstrate a decreased falls risk LTG Duration 01/04/19 Two Impairment Pt walks at a pace of 1.99 feet/sec Superintendent Custodian Janitor Goal (LTG) Pt to ambulate at a pace of 2. 3 feet per second over his 6 MWT (828') to improve his ability to ambulate quickly around [employer] Short Term Goal (STG) Pt to be independent and compliant with an appropriate HEP STG Duration 12/04/18 Assessment Summary Assessment With pt's history of successful BPPV treatment at this facillity, combined with his current complaints of mild occasional dizziness with positional changes, positional testing was performed. Pt not exhibiting any symptoms at this time, but with the waxing and waning nature of BPPV, periodic positional testing should continue to be performed. Physical Therapy Plan Frequency and Duration Frequency of Treatment 2x/Week Duration of Treatment 12 weeks Plan of Care Start Date 11/04/18 Plan of Care End Date 01/27/19 Therapeutic Interventions Therapeutic Interventions Aquatic Therapy Balance Training Home Exercise Program Joint Mobilizations Manual Therapy Neuromuscular Re-education Patient/Caregiver Education Self-Care/Home Management Soft Tissue Mobilization Therapeutic Activities Therapeutic Exercises Modalities Cold Pack/Ice Massage Electric Stimulation Hot Packs Ultrasound Next Visit Focus/Plan Next Visit Plan Continue to progress activity tolerance, balance training, and LE strengthening. Plan to check in with pt about increasing HEP frequency.
--- NOTE | 2019-01-11 13:43 | PT.OTN ---
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 (01/11/19) Muscle weakness (generalized) (01/11/19) Other abnormalities of gait and mobility (01/11/19) Physical Therapy Treatment Note PT-OP-A Visit Information Start: 11/04/18 17:40 Freq: Status: Active Protocol: Document 01/11/19 13:35 GGD (Rec: 01/11/19 13:43 GGD [email or web address]) Out-Patient Physical Therapy Visit Information Visit Information Visit Type Treatment Note Visit Start Time 10:30 Visit Stop Time 11:10 Total Visit Minutes 40 Visit Number 10 Number of SENIOR TECHNICAL SPECIALIST Visits 1 Evaluation Information Evaluation Date 11/04/18 PT-OP-B Current Condition Start: 11/04/18 17:40 Freq: Status: Active Protocol: Document 11/04/18 15:15 DCW (Rec: 11/04/18 18:07 DCW [id number]) Current Condition History of Current Condition Onset Date 4 years Current Complaints weakness, fatigue, imbalance, gait difficulty History of Current Condition Pt is an 83 year old male presenting with a long- standing history of weakness, gait difficulty, and imbalance 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 Pt was treated at this facility two years ago for this same deficit, and felt it helped at the time, but admits he has lost a lot of strength and stability since then. Pt reports he doesn't have a lot of strength, and even though he is doing most everything he is used to doing, it's all just more difficult now. Pt uses a 4WW for all gait and balance. Pt has ongoing left- sided weakness secondary to his prior CVA. 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 Treatment Goals Patient/Caregiver Goals I just want to make everything easier to do. Prior Functional Status Baseline Function- ADL's Modified Independent Baseline Function- Mobility Modified Independent PT-OP-C Subjective Start: 11/04/18 17:40 Freq: Status: Active Protocol: Document 01/11/19 13:35 GGD (Rec: 01/11/19 13:43 GGD [email or web address]) OP-PT Subjective Patient Comments Patient Comments Pt states he about the same. PT-OP-D Balance Start: 11/04/18 17:40 Freq: Status: Active Protocol: Document 01/11/19 13:35 GGD (Rec: 01/11/19 13:43 GGD [email or web address]) Miller Balance Assessment Evaluation Sitting to Standing Ability Independent w/out Hands Unsupported Stance Safely- 2 minutes Sitting Unsupported, Feet on Floor Safely- 2 minutes Standing to Sitting Ability Safely, Minimal Hand Use Transfer Ability Safely, Hand Use Unsupported Stance- Eyes Closed Supervision, 10 seconds Unsupported Stance- Eyes Open Assist to attain, 15 secs Reaching Forward Standing Safely, 5 inches Pick- Up Object From Floor Independent/Safe Look Behind Shoulder - Standing Shifts Weight Unilateral Turning 360 Degrees Turns slowly, but safely Unsupported Stance, Alternating Feet on Assist to Prevent Fall Stair Unsupported Tandem Stance Assist to Step-15 seconds Unilateral Leg Stance Unable,assist to not fall Total Score Miller Total Score (out of 56 points) 36 Miller Impairment Rating 20 to 39% Impaired (Score 34- 44) PT-OP-E Functional Tests Start: 11/04/18 17:40 Freq: Status: Active Protocol: Document 01/11/19 13:35 GGD (Rec: 01/11/19 13:43 GGD [email or web address]) Functional Tests 6 Minute Walk Test Distance 735 Device Used 4WW Dynamic Gait Index (DGI) Score 15/24 DGI Impairment Rating 20 to <40% Impaired (Score 15- 19) PT-OP-G Mobility & Gait Start: 11/04/18 17:40 Freq: Status: Active Protocol: Document 11/04/18 15:15 DCW (Rec: 11/04/18 18:07 DCW [id number]) OP Gait Assessment Gait Gait Assistance Required: Independent Distance (Feet) 715 Able to Maintain Weight Bearing Status Yes During Gait Assistive Devices Assistive Device Gait Belt,4 Wheeled Walker Gait Deviations General Gait Pattern Antalgic,Decreased Feet Clearance,Flexed Trunk,Lateral Trunk Lean,Narrow Based Gait Factors Limiting Gait Function Factors Limiting Gait Function Decreased Strength,Limited Range of Motion,Pain Comments Gait Comments Pt ambulates with his left foot externally rotated 30?, and hits his left foot on the heel of his right foot during left swing phase ~30% of the time. Stair Climbing Evaluation Evaluation Level of Assist On Stairs Independent Devices Stair Climbing Assistive Devices Left Railing,Right Railing Technique/Endurance Stair Climbing Direction Ascend and Descend Stair Climbing Technique Step Over Step Number of Steps Climbed 3 Stair Climbing Set # Repetitions (reps) 2 PT-OP-M Strength Start: 11/04/18 17:40 Freq: Status: Active Protocol: Document 11/04/18 15:15 DCW (Rec: 11/04/18 18:07 DCW [id number]) Hip Strength Hip Manual Muscle Testing Right Flexion (L2) 4- Good- Abduction 4- Good- Adduction 4- Good- External Rotation 4 Good Internal Rotation 4 Good Left Flexion (L2) 3- Fair- Abduction 3+ Fair+ Adduction 4- Good- External Rotation 3+ Fair+ Internal Rotation 3 Fair Knee Strength Knee Manual Muscle Testing Right Flexion (S2) 4+ Good+ Extension (L3) 4+ Good+ Left Flexion (S2) 4- Good- Extension (L3) 4+ Good+ Ankle/Foot Strength Ankle and Foot Manual Muscle Testing Right Dorsiflexion (L4) 4 Good Left Dorsiflexion (L4) 3- Fair- PT-OP-O Vestibular Start: 01/04/19 14:25 Freq: Status: Active Protocol: Document 01/04/19 13:45 DCW (Rec: 01/04/19 14:26 DCW [id number]) Vestibular Assessment Positional Testing [place]-Hallpike Negative Left,Negative Right Rolling Test Negative Left,Negative Right Supine to Sit Negative PT-OP-Q Treatments Start: 11/04/18 17:40 Freq: Status: Active Protocol: Document 01/11/19 13:35 GGD (Rec: 01/11/19 13:43 GGD [email or web address]) Gym Equipment Shuttle Recovery Unilateral Squats Resistance 37 # Shuttle Recovery Platform Stable Reps/Time 20 x Bilateral Squats Details bilateral squats Resistance 100# Shuttle Recovery Platform Stable Reps/Time 2 x 20 reps PT-OP-T Assessment and Plan Start: 11/04/18 17:40 Freq: Status: Active Protocol: Document 01/11/19 13:35 GGD (Rec: 01/11/19 13:43 GGD [email or web address]) Physical Therapy Assessment Goals Four Impairment Pt demonstrates LE weakness, especially on his left side Hose Wrapper Goal (LTG) Pt to improve MMT of his left LE to grossly 4-/5 LTG Duration 01/04/19 Three Impairment Pt at a falls risk per Miller ( 34/56) and DGI (15) Short Term Goal (STG) Pt to score 42/56 on Miller Balance Test to demonstrate a decreased falls risk 01-11-19 score 36/56progressing STG Duration 12/04/18 Hose Wrapper Goal (LTG) Pt to score 20/24 on DGI to demonstrate a decreased falls risk 01-11-19 score 15/24 LTG Duration 01/04/19 Two Impairment Pt walks at a pace of 1.99 feet/sec Hose Wrapper Goal (LTG) Pt to ambulate at a pace of 2. 3 feet per second over his 6 MWT (828') to improve his ability to ambulate quickly around [employer] 01-11-19 6MWT 735' One Short Term Goal (STG) Pt to be independent and compliant with an appropriate HEP STG Duration 12/04/18 Assessment Summary Assessment Pt is progressing slowly with balance and gait. He did have mild unsteadiness with gait, but able to self correct with 4WW. Pt Physical Therapy Plan Frequency and Duration Frequency of Treatment 2x/Week Duration of Treatment 12 weeks Plan of Care Start Date 11/04/18 Plan of Care End Date 01/27/19 Next Visit Focus/Plan Next Note Type Treatment Note Next Visit Plan Continue to progress activity tolerance, balance training, and LE strengthening. Plan to check in with pt about increasing HEP frequency.
--- NOTE | 2019-01-11 15:10 | PT.OPPN ---
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 (01/11/19) Muscle weakness (generalized) (01/11/19) Other abnormalities of gait and mobility (01/11/19) Physical Therapy Progress Note PT-OP-A Visit Information Start: 11/04/18 17:40 Freq: Status: Active Protocol: Document 01/11/19 13:35 GGD (Rec: 01/11/19 13:43 GGD [email or web address]) Out-Patient Physical Therapy Visit Information Visit Information Visit Type Treatment Note Visit Start Time 10:30 Visit Stop Time 11:10 Total Visit Minutes 40 Visit Number 10 Number of DIGITAL MARKETING COORDINATOR Visits 1 Evaluation Information Evaluation Date 11/04/18 PT-OP-B Current Condition Start: 11/04/18 17:40 Freq: Status: Active Protocol: Document 11/04/18 15:15 DCW (Rec: 11/04/18 18:07 DCW [id number]) Current Condition History of Current Condition Onset Date 4 years Current Complaints weakness, fatigue, imbalance, gait difficulty History of Current Condition Pt is an 83 year old male presenting with a long- standing history of weakness, gait difficulty, and imbalance 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 Pt was treated at this facility two years ago for this same deficit, and felt it helped at the time, but admits he has lost a lot of strength and stability since then. Pt reports he doesn't have a lot of strength, and even though he is doing most everything he is used to doing, it's all just more difficult now. Pt uses a 4WW for all gait and balance. Pt has ongoing left- sided weakness secondary to his prior CVA. 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 Treatment Goals Patient/Caregiver Goals I just want to make everything easier to do. Prior Functional Status Baseline Function- ADL's Modified Independent Baseline Function- Mobility Modified Independent PT-OP-C Subjective Start: 11/04/18 17:40 Freq: Status: Active Protocol: Document 01/11/19 13:35 GGD (Rec: 01/11/19 13:43 GGD [email or web address]) OP-PT Subjective Patient Comments Patient Comments Pt states he about the same. PT-OP-D Balance Start: 11/04/18 17:40 Freq: Status: Active Protocol: Document 01/11/19 13:35 GGD (Rec: 01/11/19 13:43 GGD [email or web address]) Miller Balance Assessment Evaluation Sitting to Standing Ability Independent w/out Hands Unsupported Stance Safely- 2 minutes Sitting Unsupported, Feet on Floor Safely- 2 minutes Standing to Sitting Ability Safely, Minimal Hand Use Transfer Ability Safely, Hand Use Unsupported Stance- Eyes Closed Supervision, 10 seconds Unsupported Stance- Eyes Open Assist to attain, 15 secs Reaching Forward Standing Safely, 5 inches Pick- Up Object From Floor Independent/Safe Look Behind Shoulder - Standing Shifts Weight Unilateral Turning 360 Degrees Turns slowly, but safely Unsupported Stance, Alternating Feet on Assist to Prevent Fall Stair Unsupported Tandem Stance Assist to Step-15 seconds Unilateral Leg Stance Unable,assist to not fall Total Score Miller Total Score (out of 56 points) 36 Miller Impairment Rating 20 to 39% Impaired (Score 34- 44) PT-OP-E Functional Tests Start: 11/04/18 17:40 Freq: Status: Active Protocol: Document 01/11/19 13:35 GGD (Rec: 01/11/19 13:43 GGD [email or web address]) Functional Tests 6 Minute Walk Test Distance 735 Device Used 4WW Dynamic Gait Index (DGI) Score 15/24 DGI Impairment Rating 20 to <40% Impaired (Score 15- 19) PT-OP-G Mobility & Gait Start: 11/04/18 17:40 Freq: Status: Active Protocol: Document 11/04/18 15:15 DCW (Rec: 11/04/18 18:07 DCW [id number]) OP Gait Assessment Gait Gait Assistance Required: Independent Distance (Feet) 715 Able to Maintain Weight Bearing Status Yes During Gait Assistive Devices Assistive Device Gait Belt,4 Wheeled Walker Gait Deviations General Gait Pattern Antalgic,Decreased Feet Clearance,Flexed Trunk,Lateral Trunk Lean,Narrow Based Gait Factors Limiting Gait Function Factors Limiting Gait Function Decreased Strength,Limited Range of Motion,Pain Comments Gait Comments Pt ambulates with his left foot externally rotated 30?, and hits his left foot on the heel of his right foot during left swing phase ~30% of the time. Stair Climbing Evaluation Evaluation Level of Assist On Stairs Independent Devices Stair Climbing Assistive Devices Left Railing,Right Railing Technique/Endurance Stair Climbing Direction Ascend and Descend Stair Climbing Technique Step Over Step Number of Steps Climbed 3 Stair Climbing Set # Repetitions (reps) 2 PT-OP-M Strength Start: 11/04/18 17:40 Freq: Status: Active Protocol: Document 11/04/18 15:15 DCW (Rec: 11/04/18 18:07 DCW [id number]) Hip Strength Hip Manual Muscle Testing Right Flexion (L2) 4- Good- Abduction 4- Good- Adduction 4- Good- External Rotation 4 Good Internal Rotation 4 Good Left Flexion (L2) 3- Fair- Abduction 3+ Fair+ Adduction 4- Good- External Rotation 3+ Fair+ Internal Rotation 3 Fair Knee Strength Knee Manual Muscle Testing Right Flexion (S2) 4+ Good+ Extension (L3) 4+ Good+ Left Flexion (S2) 4- Good- Extension (L3) 4+ Good+ Ankle/Foot Strength Ankle and Foot Manual Muscle Testing Right Dorsiflexion (L4) 4 Good Left Dorsiflexion (L4) 3- Fair- PT-OP-O Vestibular Start: 01/04/19 14:25 Freq: Status: Active Protocol: Document 01/04/19 13:45 DCW (Rec: 01/04/19 14:26 DCW [id number]) Vestibular Assessment Positional Testing [place]-Hallpike Negative Left,Negative Right Rolling Test Negative Left,Negative Right Supine to Sit Negative PT-OP-T Assessment and Plan Start: 11/04/18 17:40 Freq: Status: Active Protocol: Document 01/11/19 13:35 GGD (Rec: 01/11/19 13:43 GGD [email or web address]) Physical Therapy Assessment Goals Four Impairment Pt demonstrates LE weakness, especially on his left side Control Officer Manager Goal (LTG) Pt to improve MMT of his left LE to grossly 4-/5 LTG Duration 01/04/19 Three Impairment Pt at a falls risk per Miller ( 34/56) and DGI () Short Term Goal (STG) Pt to score 42/56 on Miller Balance Test to demonstrate a decreased falls risk 01-11-19 score 36/56progressing STG Duration 12/04/18 Mcfp Goal (LTG) Pt to score 20/24 on DGI to demonstrate a decreased falls risk 01-11-19 score 15/24 LTG Duration 01/04/19 Two Impairment Pt walks at a pace of 1.99 feet/sec Mcfp Goal (LTG) Pt to ambulate at a pace of 2. 3 feet per second over his 6 MWT (828') to improve his ability to ambulate quickly around [employer] 01-11-19 6MWT 735' One Short Term Goal (STG) Pt to be independent and compliant with an appropriate HEP STG Duration 12/04/18 Assessment Summary Assessment Pt is progressing slowly with balance and gait. He did have mild unsteadiness with gait, but able to self correct with 4WW. Pt Physical Therapy Plan Frequency and Duration Frequency of Treatment 2x/Week Duration of Treatment 12 weeks Plan of Care Start Date 11/04/18 Plan of Care End Date 01/27/19 Next Visit Focus/Plan Next Note Type Treatment Note Next Visit Plan Continue to progress activity tolerance, balance training, and LE strengthening. Plan to check in with pt about increasing HEP frequency.
--- NOTE | 2019-01-17 13:00 | PT.OTN ---
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 (01/17/19) Muscle weakness (generalized) (01/17/19) Other abnormalities of gait and mobility (01/17/19) Physical Therapy Treatment Note PT-OP-A Visit Information Start: 11/04/18 17:40 Freq: Status: Active Protocol: Document 01/17/19 13:00 DLM (Rec: 01/20/19 12:16 DLM [id number]) Out-Patient Physical Therapy Visit Information Visit Information Visit Type Treatment Note Visit Start Time 13:00 Visit Stop Time 13:45 Total Visit Minutes 45 Visit Number 11 Number of ANESTHESIA DIRECTOR Visits 0 Evaluation Information Evaluation Date 11/04/18 PT-OP-B Current Condition Start: 11/04/18 17:40 Freq: Status: Active Protocol: Document 11/04/18 15:15 DCW (Rec: 11/04/18 18:07 DCW [id number]) Current Condition History of Current Condition Onset Date 4 years Current Complaints weakness, fatigue, imbalance, gait difficulty History of Current Condition Pt is an 83 year old male presenting with a long- standing history of weakness, gait difficulty, and imbalance 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 Pt was treated at this facility two years ago for this same deficit, and felt it helped at the time, but admits he has lost a lot of strength and stability since then. Pt reports he doesn't have a lot of strength, and even though he is doing most everything he is used to doing, it's all just more difficult now. Pt uses a 4WW for all gait and balance. Pt has ongoing left- sided weakness secondary to his prior CVA. 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 Treatment Goals Patient/Caregiver Goals I just want to make everything easier to do. Prior Functional Status Baseline Function- ADL's Modified Independent Baseline Function- Mobility Modified Independent PT-OP-C Subjective Start: 11/04/18 17:40 Freq: Status: Active Protocol: Document 01/17/19 13:00 DLM (Rec: 01/20/19 12:16 DLM [id number]) OP-PT Subjective Patient Comments Patient Comments No changes reported PT-OP-D Balance Start: 11/04/18 17:40 Freq: Status: Active Protocol: Document 01/11/19 13:35 GGD (Rec: 01/11/19 13:43 GGD [email or web address]) Miller Balance Assessment Evaluation Sitting to Standing Ability Independent w/out Hands Unsupported Stance Safely- 2 minutes Sitting Unsupported, Feet on Floor Safely- 2 minutes Standing to Sitting Ability Safely, Minimal Hand Use Transfer Ability Safely, Hand Use Unsupported Stance- Eyes Closed Supervision, 10 seconds Unsupported Stance- Eyes Open Assist to attain, 15 secs Reaching Forward Standing Safely, 5 inches Pick- Up Object From Floor Independent/Safe Look Behind Shoulder - Standing Shifts Weight Unilateral Turning 360 Degrees Turns slowly, but safely Unsupported Stance, Alternating Feet on Assist to Prevent Fall Stair Unsupported Tandem Stance Assist to Step-15 seconds Unilateral Leg Stance Unable,assist to not fall Total Score Miller Total Score (out of 56 points) 36 Miller Impairment Rating 20 to 39% Impaired (Score 34- 44) PT-OP-E Functional Tests Start: 11/04/18 17:40 Freq: Status: Active Protocol: Document 01/11/19 13:35 GGD (Rec: 01/11/19 13:43 GGD [email or web address]) Functional Tests 6 Minute Walk Test Distance 735 Device Used 4WW Dynamic Gait Index (DGI) Score 15/24 DGI Impairment Rating 20 to <40% Impaired (Score 15- 19) PT-OP-G Mobility & Gait Start: 11/04/18 17:40 Freq: Status: Active Protocol: Document 11/04/18 15:15 DCW (Rec: 11/04/18 18:07 DCW [id number]) OP Gait Assessment Gait Gait Assistance Required: Independent Distance (Feet) 715 Able to Maintain Weight Bearing Status Yes During Gait Assistive Devices Assistive Device Gait Belt,4 Wheeled Walker Gait Deviations General Gait Pattern Antalgic,Decreased Feet Clearance,Flexed Trunk,Lateral Trunk Lean,Narrow Based Gait Factors Limiting Gait Function Factors Limiting Gait Function Decreased Strength,Limited Range of Motion,Pain Comments Gait Comments Pt ambulates with his left foot externally rotated 30?, and hits his left foot on the heel of his right foot during left swing phase ~30% of the time. Stair Climbing Evaluation Evaluation Level of Assist On Stairs Independent Devices Stair Climbing Assistive Devices Left Railing,Right Railing Technique/Endurance Stair Climbing Direction Ascend and Descend Stair Climbing Technique Step Over Step Number of Steps Climbed 3 Stair Climbing Set # Repetitions (reps) 2 PT-OP-M Strength Start: 11/04/18 17:40 Freq: Status: Active Protocol: Document 11/04/18 15:15 DCW (Rec: 11/04/18 18:07 DCW [id number]) Hip Strength Hip Manual Muscle Testing Right Flexion (L2) 4- Good- Abduction 4- Good- Adduction 4- Good- External Rotation 4 Good Internal Rotation 4 Good Left Flexion (L2) 3- Fair- Abduction 3+ Fair+ Adduction 4- Good- External Rotation 3+ Fair+ Internal Rotation 3 Fair Knee Strength Knee Manual Muscle Testing Right Flexion (S2) 4+ Good+ Extension (L3) 4+ Good+ Left Flexion (S2) 4- Good- Extension (L3) 4+ Good+ Ankle/Foot Strength Ankle and Foot Manual Muscle Testing Right Dorsiflexion (L4) 4 Good Left Dorsiflexion (L4) 3- Fair- PT-OP-O Vestibular Start: 01/04/19 14:25 Freq: Status: Active Protocol: Document 01/04/19 13:45 DCW (Rec: 01/04/19 14:26 DCW [id number]) Vestibular Assessment Positional Testing [place]-Hallpike Negative Left,Negative Right Rolling Test Negative Left,Negative Right Supine to Sit Negative PT-OP-Q Treatments Start: 11/04/18 17:40 Freq: Status: Active Protocol: Document 01/17/19 13:00 DLM (Rec: 01/20/19 12:16 DLM [id number]) Cardio Equipment Recumbent Stepper (Sci-Fit) Duration (Minutes) 6 Resistance 2 Seat Position 15 Gym Equipment Shuttle Recovery Unilateral Squats Resistance 37 # Shuttle Recovery Platform Stable Reps/Time 20 x Bilateral Squats Details bilateral squats Resistance 100# Shuttle Recovery Platform Stable Reps/Time 2 x 20 reps Therapeutic Exercises Sitting Exercises hip add Sitting Exercise Name adductor ball squeeze Side bilateral Reps/Minutes 5 sec hold, x 20 reps hamstring curls Sitting Exercise Name HS curls Side bilateral Resistance L2 exercise band Reps/Minutes 20 reps Standing Exercises 7 Standing Exercise Name hip abduction Side bilateral Equipment Used UE support Reps/Minutes 15 reps 4 Standing Exercise Name side stepping Side bilateral Equipment Used UE support, bar on wall Reps/Minutes 2 laps 1 Standing Exercise Name Standing calf raises Side bilateral Equipment Used UE support Reps/Minutes 15 reps PT-OP-T Assessment and Plan Start: 11/04/18 17:40 Freq: Status: Active Protocol: Document 01/19/19 15:04 DCW (Rec: 01/19/19 15:05 DCW [id number]) Physical Therapy Assessment Goals Four Impairment Pt demonstrates LE weakness, especially on his left side Photographic Editor Goal (LTG) Pt to improve MMT of his left LE to grossly 4-/5 LTG Duration 01/04/19 Three Impairment Pt at a falls risk per Miller ( 34/56) and DGI () Short Term Goal (STG) Pt to score 42/56 on Miller Balance Test to demonstrate a decreased falls risk 01-11-19 score 36/56progressing STG Duration 12/04/18 Photographic Editor Goal (LTG) Pt to score 20/24 on DGI to demonstrate a decreased falls risk 01-11-19 score 1524 LTG Duration 01/04/19 Two Impairment Pt walks at a pace of 1.99 feet/sec Senior Care Goal (LTG) Pt to ambulate at a pace of 2. 3 feet per second over his 6 MWT (828') to improve his ability to ambulate quickly around [employer] 01-11-19 6MWT 735' One Short Term Goal (STG) Pt to be independent and compliant with an appropriate HEP STG Duration 12/04/18 Assessment Summary Assessment He tolerated treatment session well. He shows good effort with all activities. He benefits from cuing to slow down his gait to decrease foot drag. Physical Therapy Plan Frequency and Duration Frequency of Treatment 2x/Week Duration of Treatment 12 weeks Plan of Care Start Date 11/04/18 Plan of Care End Date 01/27/19 Therapeutic Interventions Therapeutic Interventions Aquatic Therapy,Balance Training,Home Exercise Program ,Joint Mobilizations,Manual Therapy,Neuromuscular Re- education,Patient/Caregiver Education,Self-Care/Home Management,Soft Tissue Mobilization,Therapeutic Activities,Therapeutic Exercises Modalities Cold Pack/Ice Massage,Electric Stimulation,Hot Packs, Ultrasound Discharge Physical Therapy Discharge Reasons Next Visit Focus/Plan continue balance training and strengthening Next Note Type treatment note
--- NOTE | 2019-01-19 15:05 | PT.OPDS ---
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 (01/17/19) Muscle weakness (generalized) (01/17/19) Other abnormalities of gait and mobility (01/17/19) Visit Care Team Role Provider Type Roger Du MD Attending Provider Physician Primary Care Provider Specialty: [facility] Practice Address: [address] [place] [address], [facility] Email: [email or web address] Visit Number Visit Number 10 Discharge Summary PT-OP-B Current Condition Start: 11/04/18 17:40 Freq: Status: Active Protocol: Document 11/04/18 15:15 DCW (Rec: 11/04/18 18:07 DCW [id number]) Current Condition History of Current Condition Onset Date 4 years Current Complaints weakness, fatigue, imbalance, gait difficulty History of Current Condition Pt is an 83 year old male presenting with a long- standing history of weakness, gait difficulty, and imbalance 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 Pt was treated at this facility two years ago for this same deficit, and felt it helped at the time, but admits he has lost a lot of strength and stability since then. Pt reports he doesn't have a lot of strength, and even though he is doing most everything he is used to doing, it's all just more difficult now. Pt uses a 4WW for all gait and balance. Pt has ongoing left- sided weakness secondary to his prior CVA. 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 Treatment Goals Patient/Caregiver Goals I just want to make everything easier to do. Prior Functional Status Baseline Function- ADL's Modified Independent Baseline Function- Mobility Modified Independent PT-OP-C Subjective Start: 11/04/18 17:40 Freq: Status: Active Protocol: Document 01/11/19 13:35 GGD (Rec: 01/11/19 13:43 GGD [id number]) OP-PT Subjective Patient Comments Patient Comments Pt states he about the same. PT-OP-D Balance Start: 11/04/18 17:40 Freq: Status: Active Protocol: Document 01/11/19 13:35 GGD (Rec: 01/11/19 13:43 GGD [id number]) Miller Balance Assessment Evaluation Sitting to Standing Ability Independent w/out Hands Unsupported Stance Safely- 2 minutes Sitting Unsupported, Feet on Floor Safely- 2 minutes Standing to Sitting Ability Safely, Minimal Hand Use Transfer Ability Safely, Hand Use Unsupported Stance- Eyes Closed Supervision, 10 seconds Unsupported Stance- Eyes Open Assist to attain, 15 secs Reaching Forward Standing Safely, 5 inches Pick- Up Object From Floor Independent/Safe Look Behind Shoulder - Standing Shifts Weight Unilateral Turning 360 Degrees Turns slowly, but safely Unsupported Stance, Alternating Feet on Assist to Prevent Fall Stair Unsupported Tandem Stance Assist to Step-15 seconds Unilateral Leg Stance Unable,assist to not fall Total Score Miller Total Score (out of 56 points) 36 Miller Impairment Rating 20 to 39% Impaired (Score 34- 44) PT-OP-E Functional Tests Start: 11/04/18 17:40 Freq: Status: Active Protocol: Document 01/11/19 13:35 GGD (Rec: 01/11/19 13:43 GGD [id number]) Functional Tests 6 Minute Walk Test Distance 735 Device Used 4WW Dynamic Gait Index (DGI) Score 15/24 DGI Impairment Rating 20 to <40% Impaired (Score 15- 19) PT-OP-G Mobility & Gait Start: 11/04/18 17:40 Freq: Status: Active Protocol: Document 11/04/18 15:15 DCW (Rec: 11/04/18 18:07 DCW [id number]) OP Gait Assessment Gait Gait Assistance Required: Independent Distance (Feet) 715 Able to Maintain Weight Bearing Status Yes During Gait Assistive Devices Assistive Device Gait Belt,4 Wheeled [place] Gait Deviations General Gait Pattern Antalgic,Decreased Feet Clearance,Flexed Trunk,Lateral Trunk Lean,Narrow Based Gait Factors Limiting Gait Function Factors Limiting Gait Function Decreased Strength,Limited Range of Motion,Pain Comments Gait Comments Pt ambulates with his left foot externally rotated 30?, and hits his left foot on the heel of his right foot during left swing phase ~30% of the time. Stair Climbing Evaluation Evaluation Level of Assist On Stairs Independent Devices Stair Climbing Assistive Devices Left Railing,Right Railing Technique/Endurance Stair Climbing Direction Ascend and Descend Stair Climbing Technique Step Over Step Number of Steps Climbed 3 Stair Climbing Set # Repetitions (reps) 2 PT-OP-M Strength Start: 11/04/18 17:40 Freq: Status: Active Protocol: Document 11/04/18 15:15 DCW (Rec: 11/04/18 18:07 DCW [id number]) Hip Strength Hip Manual Muscle Testing Right Flexion (L2) 4- Good- Abduction 4- Good- Adduction 4- Good- External Rotation 4 Good Internal Rotation 4 Good Left Flexion (L2) 3- Fair- Abduction 3+ Fair+ Adduction 4- Good- External Rotation 3+ Fair+ Internal Rotation 3 Fair Knee Strength Knee Manual Muscle Testing Right Flexion (S2) 4+ Good+ Extension (L3) 4+ Good+ Left Flexion (S2) 4- Good- Extension (L3) 4+ Good+ Ankle/Foot Strength Ankle and Foot Manual Muscle Testing Right Dorsiflexion (L4) 4 Good Left Dorsiflexion (L4) 3- Fair- PT-OP-O Vestibular Start: 01/04/19 14:25 Freq: Status: Active Protocol: Document 01/04/19 13:45 DCW (Rec: 01/04/19 14:26 DCW [id number]) Vestibular Assessment Positional Testing Geovani-Hallpike Negative Left,Negative Right Rolling Test Negative Left,Negative Right Supine to Sit Negative PT-OP-T Assessment and Plan Start: 11/04/18 17:40 Freq: Status: Active Protocol: Document 01/19/19 15:04 DCW (Rec: 01/19/19 15:05 DCW [id number]) Physical Therapy Assessment Goals Four Impairment Pt demonstrates LE weakness, especially on his left side Field Radio Technician Goal (LTG) Pt to improve MMT of his left LE to grossly 4-/5 LTG Duration 01/04/19 Three Impairment Pt at a falls risk per Miller ( 34/56) and DGI () Short Term Goal (STG) Pt to score 42/56 on Miller Balance Test to demonstrate a decreased falls risk 01-11-19 score 36/56progressing STG Duration 12/04/18 Field Radio Technician Goal (LTG) Pt to score 20/24 on DGI to demonstrate a decreased falls risk 01-11-19 score 15/24 LTG Duration 01/04/19 Two Impairment Pt walks at a pace of 1.99 feet/sec Field Radio Technician Goal (LTG) Pt to ambulate at a pace of 2. 3 feet per second over his 6 MWT (828') to improve his ability to ambulate quickly around [employer] 01-11-19 6MWT 735' One Short Term Goal (STG) Pt to be independent and compliant with an appropriate HEP STG Duration 12/04/18 Assessment Summary Assessment Pt phoned clinic to cancel all remaining appointments. Reported he is just not up for it at this time. Pt will be discharged from skilled therapy. Physical Therapy Plan Frequency and Duration Frequency of Treatment 2x/Week Duration of Treatment 12 weeks Plan of Care Start Date 11/04/18 Plan of Care End Date 01/27/19 Therapeutic Interventions Therapeutic Interventions Aquatic Therapy,Balance Training,Home Exercise Program ,Joint Mobilizations,Manual Therapy,Neuromuscular Re- education,Patient/Caregiver Education,Self-Care/Home Management,Soft Tissue Mobilization,Therapeutic Activities,Therapeutic Exercises Modalities Cold Pack/Ice Massage,Electric Stimulation,Hot Packs, Ultrasound Discharge Physical Therapy Discharge Reasons Patient Request Next Visit Focus/Plan Next Note Type Discharge Summary
== END 2019-01-20 17:01 | disposition home or self-care (01) ==
LOC: PHYS 13:00
PROVIDERS: PCP Family Medicine; Visit Provider Family Medicine
DX: I63.212 Cerebral infarction due to unspecified occlusion or stenosis of left vertebral artery (principal); R26.89 Other abnormalities of gait and mobility; M62.81 Muscle weakness (generalized)
CPT/HCPCS: 97110; 97112; 97140; 97162; 97530

== ENCOUNTER → 2020-05-21 11:11 | Outpatient (CLI) | payer MEDICARE, OTHER, SELFPAY ==
--- NOTE | 2020-05-21 | DI.RAD.S_ITS ---
PROCEDURE: FL BARIUM SWALLOW W SPEECH INDICATIONS: Dysphagia, unspecified COMPARISON: None. TECHNIQUE: Examination was conducted in conjunction with speech pathology per standard protocol. In the lateral projection, filming was performed of the patient swallowing. AP projection filming may also be performed with patient swallowing. COMPARISON: FINDINGS: Function: The oral preparatory phase appears normal, with proper containment. The subsequent oral propulsive phase, pharyngeal phase, and esophageal phase of swallowing also appear normal with all proffered substances. No laryngotracheal penetration or aspiration. No pathologic vallecular pooling. Morphology: No cricopharyngeal bar is identified. No cervical esophageal webs. No Zenker's diverticulum. No strictures. IMPRESSION: Normal examination without evidence of aspiration or stricture. Dictated by: Maritza Norman MD, PhD on 05/21/2020 at 13:03 Approved by: Maritza Norman MD, PhD on 05/21/2020 at 13:03
--- NOTE | 2020-05-21 17:21 | ST.SWALLOW ---
Visit Care Team Role Provider Type Roger Du MD Attending Provider Physician Primary Care Provider Referring Provider Specialty: Family Practice Address: [address] [place] [address], [address], [place], [address] Email: [email or web address] Modified Barium Swallow Study DELIVERY MANAGER Modified Barium Swallow Study Start: 05/21/20 16:14 Freq: Status: Active Protocol: Document 05/21/20 16:15 LNK (Rec: 05/21/20 17:21 LNK [id number]) Modified Barium Swallow Study Total Time Visit Start Time 11:30 Visit Stop Time 12:00 Total Visit Minutes [address] Du Reason for Referral dysphagia Setting Setting Outpatient Care Patient Information Identification Type Name,Date of Patient History pt was seen for a Modified Barium Swallow Study at the referral of his physician, Dr. Du. When asked, pt reported that he has had a chronic cough when eating/ drinking meals that happens 2- 3 times during meals. He points to the sternal notch area when asked to locate the sense of globus her reports. He noted that his has mentioned the cough. Additionally, he stated that he does not cough when he is not eating. Pt reported that he has a medical history of a throat surgery approximately 10 years ago that injured [ his] vocal cords. Review of the MBSS notes anterior and posterior cervical fusion surgery/surgeries. When asked about his medical history, the pt did not mention them. pt's voice was observed to be breathy/hoarse. Subjective Observations Pt was seated in the fluoroscopy chair. The procedure and instructions were provided to the pt. He indicated he understood and agreed to proceed. Patient Positioning Position View Lat-A/P Imaging Lateral View Textures Administered Trials Presented Thin Liquid via Spoon,Thin Liquid via Cup,Pudding Thick Liquid via Spoon,Regular Textures Oral Phase Source: MBSIMP (TM) (C) Bolus Specific Scoring Grid Lip Closure WFL Tongue Control During Bolus Hold WFL Bolus Prep/Mastication Minimal Impairment Bolus Transport/Lingual Motion Minimal Impairment A/P Lingual Propulsion Delay No Oral Residue Minimal Impairment Residue Clearing WFL Nasal Regurgitation No Additional Oral Phase Observations oral prep of the bolus was observed to be WFL. Pt was able to control and propel bolus toward the pharynx WFL. Dentition was adequate. Implanted teeth as well as natural teeth were intact. OME was WFL Pharyngeal Phase Source: MBSIMP (TM) (C) Bolus Specific Scoring Grid Delayed Initiation of Pharyngeal Swallow No Soft Palate Elevation WFL Tongue Base Strength/Range of Motion Mild Impairment Residue Along the Tongue Base Yes Clearance of Residue Along Tongue Base Mild Impairment Laryngeal Elevation Minimal Impairment Anterior Hyoid Movement Minimal Impairment Epiglottic Range of Motion WFL Vallecular Residue Yes Clearance of Vallecular Residue Mild Impairment Laryngeal Vestibular Closure WFL Pharyngeal Stripping Wave Mild Impairment Pharyngeal Contraction WFL Posterior Pharyngeal Wall Residue No Upper Esophageal Sphincter Opening WFL Residue in the Pyriform Sinuses Yes Clearance of Residue in the Pyriform Minimal Impairment Sinuses Esophageal Clearance Upright Position Minimal Impairment Pharyngoesophageal Backflow Observed No Additional Pharyngeal Phase Observations Hyolaryngeal elevation and hyoid movement demonstrated mild impairment with reduced lingupharyngeal contact, resulting in pooling at the tongue base and residue along the tongue body. Residue was also observed in the valeculla that increased as the bolus trials were presented. Although the epiglottic inversion was complete, and there was no obvious penetration into the laryngeal vestibule, residue accumulated along the anterior wall of the thyroid cartilage as trials continued. This penetration/pooling was not perceived by the pt. No cough or throat clear was observed. It is likely that as the pt consumes a meal, there is pooled secretions within the laryngeal vestibule that builds up until the pt responds with a cough/throat clear. A/P View Textures Administered Trials Presented Thin Liquid via Cup Clinical Impressions Dysphagia Type mild pharyngeal dysphagia Findings Review of the MBSS indicate that the pt is silently accumulating pooled residue within the laryngeal vestibule as PO intact continues. This pooling was also observed at the tongue base and the valeculla, probably slowly entering the larynx. As a result of the pooled residue, the pt eventually will cough/ throat clear. The residue within the tongue base as well as the valeculla can result from weakened/loss of ROM of the hyolarynx. Linguapharyngeal contact was weak, contributing to the pooling of the residue. Swallow therapy is recommended to increase strength of the laryngopharyngeal muscles with a goal to to elevate the hyolarynx and assist in bolus control and reduction in reside. Given that there were two cervical fusion surgeries , and the high incidence of vocal and swallowing difficulty following these procedures, it is possible that there is weakness in vocal fold adduction. Referral to ENT may be indicated. Rehabilitation Potential Good Patient Appropriate for Therapy Yes Recommendations Diet Liquids Order Thin Diet Order Regular Medication Recommendation As Tolerated Aspiration Precautions Recommended Precautions Upright at 90 Degrees, Effortful Swallow,Supraglottic Swallow,Jon Maneuvor Treatment Plan Therapy Recommendations Outpatient Speech Therapy, Vocal Fold Adduction Exercises Recommended Referrals ENT Consult
== END ==
PROVIDERS: PCP Family Medicine; Referring Provider Family Medicine; Visit Provider Family Medicine
DX: R13.10 Dysphagia, unspecified (principal)
CPT/HCPCS: 74230; 92611

== ENCOUNTER → 2020-07-03 15:18 | Outpatient (CLI) | payer MEDICARE, OTHER, SELFPAY ==
--- NOTE | 2020-07-03 | DI.RAD.S_ITS ---
PROCEDURE: XR RIBS LT MIN 3V W CXR1V INDICATIONS: PAIN TECHNIQUE: 2 views of the left ribs were acquired, along with a single view chest. COMPARISON: None. FINDINGS: Surgical changes and devices: Cervical fusion hardware is present. Bones and chest wall: No fractures or dislocations. No suspicious bony lesions. Overlying soft tissues appear unremarkable. Lungs and pleura: No pleural effusions or pneumothorax. Lungs appear clear. Mediastinum: Mediastinal contours appear normal. Heart size is normal. IMPRESSION: No acute fracture. No osseous lesion. If symptoms and/or clinical suspicion for pathology persist, further assessment with repeat, or advanced imaging (e.g., CT or bone scan) may be helpful for further assessment. Dictated by: Darius Khan M.D. on 07/03/2020 at 16:48 Approved by: Darius Khan M.D. on 07/03/2020 at 16:49
== END ==
PROVIDERS: PCP Family Medicine; Referring Provider Family Medicine; Visit Provider Family Medicine
DX: R07.81 Pleurodynia (principal); M54.5 Low back pain
CPT/HCPCS: 71101

== ENCOUNTER → 2021-05-08 12:04 | Outpatient (CLI) | payer MEDICARE, OTHER, SELFPAY ==
--- NOTE | 2021-05-08 12:16 | DI.RAD.S_ITS ---
PROCEDURE: XR LUMBAR SPINE 2-3V INDICATIONS: BACK PAIN TECHNIQUE: 2 views of the lumbar spine were acquired. COMPARISON: [facility], , L-SPINE MINIMUM 4 VIEWS, 12/08/2011, 11:17. FINDINGS: Bones: 5 [id number] vertebrae are present. There is levoconvex curvature of the lumbar spine. Mild dorsal of the normal lumbar lordosis is seen. Laminectomy changes are again noted from L2 through L5. No definite No vertebral body compression fractures. No suspicious bony lesions. Prominence of the posterior elements may be secondary to extensive facet hypertrophy versus osseous fusion. Disc space narrowing and degenerative endplate changes are seen throughout the lumbar spine. Soft tissues: Overlying bowel gas pattern is normal. Aortic atherosclerotic calcifications are present. The aorta and iliac vessels appear ectatic. IMPRESSION: 1. Postsurgical changes redemonstrated from prior laminectomies throughout the lumbar spine. 2. No acute vertebral body compression fracture. 3. Levoconvex curvature of the lumbar spine is again seen with loss of normal lordosis. 4. Multilevel spondylosis. 5. Ectatic or aneurysmal appearance of the abdominal aorta and iliac arteries. Findings could be further evaluated with aortic ultrasound if indicated clinically. Dictated by: Aaron Esqueda M.D. on 05/08/2021 at 12:41 Approved by: Aaron Esqueda M.D. on 05/08/2021 at 12:50
== END ==
PROVIDERS: PCP Family Medicine; Referring Provider Family Medicine; Visit Provider Family Medicine
DX: M47.814 Spondylosis without myelopathy or radiculopathy, thoracic region (principal); I70.0 Atherosclerosis of aorta; M54.6 Pain in thoracic spine
CPT/HCPCS: 72100

== ENCOUNTER → 2021-07-05 14:20 | Outpatient (CLI) | payer MEDICARE, OTHER, SELFPAY | PROVIDERS: PCP Family Medicine; Referring Provider Family Medicine; Visit Provider Nurse Practitioner Family | DX: L53.8 Other specified erythematous conditions (principal); E11.9 Type 2 diabetes mellitus without complications; I10 Essential (primary) hypertension; R32 Unspecified urinary incontinence; R15.9 Full incontinence of feces; Z74.09 Other reduced mobility; Z79.84 Long term (current) use of oral hypoglycemic drugs | CPT/HCPCS: 99202; 99213 ==

== ENCOUNTER → 2021-07-11 12:46 | Outpatient (CLI) | payer MEDICARE, OTHER, SELFPAY ==
--- NOTE | 2021-07-11 12:48 | DI.MRI.S_ITS ---
PROCEDURE: MR LUMBAR SPINE WO CON INDICATIONS: Left flank pain, history of lumbar laminectomy L2-L5 TECHNIQUE: Noncontrast sagittal T1 spin echo and T2 fast echo, sagittal STIR, axial T1 and T2 fast spin echo through the lumbar spine. In cases with scoliosis, additional coronal T2 fast spin echo may be performed. COMPARISON: [facility], MR, L-SPINE WITH AND WITHOUT CONTR, 11/27/2011, 10:48. [facility], CR, XR LUMBAR SPINE 2-3V, 05/08/2021, 12:08. FINDINGS: Image quality: Excellent. Alignment and Curvature: Stable appearance of levoscoliosis centered at L3. Bone Marrow: Marrow is of normal overall signal. No acute vertebral body compression fractures. Status post laminectomies at L2, L3, L4, and L5. Spinal Cord: Conus medullaris terminates at the L1-2 interspace level. Visualized cord demonstrates normal signal and size. Paraspinous Soft Tissues: No paravertebral masses. Redemonstration of multiple bilateral peripelvic renal cysts. T12-L1: Moderate bilateral facet arthropathy and ligamentum flavum thickening. Minimal spinal canal stenosis. No significant neuroforaminal stenosis. L1-L2: Moderate bilateral facet arthropathy. Minimal loss of disc signal intensity. Symmetric disc bulge. Degenerative endplate changes and endplate osteophytes. No significant spinal canal stenosis. Stable mild bilateral neuroforaminal stenosis. L2-L3: Minimal loss of disc signal intensity. There is asymmetric disc bulge with posterior peripheral T2 hyperintensity suggestive of a annular fibrosus fissure. Degenerative endplate changes and endplate osteophyte formation. Severe bilateral facet arthropathy. Prominent epidural fat. There is severe bilateral neuroforaminal stenosis and moderate spinal canal stenosis. There is likely compression of the transiting bilateral nerve roots at this level. L3-L4: There is loss of disc signal intensity. Moderate disc height loss. Moderate degenerative endplate changes and prominent endplate osteophyte formation. Of note, posterior endplate osteophyte causes effacement of the right paracentral and subarticular zone. Large symmetric disc bulge. Moderate bilateral facet arthropathy. Prominent epidural fat. Combination of findings result in moderate spinal canal stenosis and severe right greater than left neuroforaminal stenosis. There is suspected compression of the right exiting nerve root at this level. L4-L5: Minimal loss of disc signal intensity. Disc height loss. Degenerative endplate changes. Prominent symmetric disc bulge and degenerative endplate changes. Moderate-severe bilateral facet arthropathy. Prominent epidural fat. Combination of findings result in moderate-severe spinal canal stenosis and severe bilateral neuroforaminal stenosis. There is effacement of the bilateral subarticular and foraminal zones. L5-S1: Minimal loss of disc signal intensity. Mild degenerative endplate changes. Slightly eccentric to the left disc bulge. Moderate-severe bilateral facet arthropathy. Combination of findings result in minimal right and moderate-severe left bilateral neuroforaminal stenosis. No significant spinal canal stenosis. IMPRESSION: 1. Multifocal, multifactorial lumbar spondylosis as described above by vertebral body level. Despite multilevel laminectomies from L2 through L5, there is still significant spinal canal stenosis from L2-3 through L4-5 with findings most severe at L4-5. There is also variable degrees of significant neuroforaminal stenosis throughout the lumbar spine as described above. Overall, findings have progressed since the prior MRI of November 27, 2011. 2. No acute osseous abnormalities identified in the lumbar spine. 3. Small posterior, peripheral annular fibrosus fissure involving the L2-3 disc. Dictated by: Rikki De La Rosa M.D. on 07/12/2021 at 7:39 Approved by: Rikki De La Rosa M.D. on 07/12/2021 at 8:10
== END ==
PROVIDERS: PCP Family Medicine; Referring Provider Physical Medicine & Rehabilitation; Visit Provider Physical Medicine & Rehabilitation
DX: M96.1 Postlaminectomy syndrome, not elsewhere classified (principal); M47.816 Spondylosis without myelopathy or radiculopathy, lumbar region; M47.817 Spondylosis without myelopathy or radiculopathy, lumbosacral region; M48.061 Spinal stenosis, lumbar region without neurogenic claudication; M48.07 Spinal stenosis, lumbosacral region
CPT/HCPCS: 72148

== ENCOUNTER → 2021-07-22 14:32 | Outpatient (CLI) | payer MEDICARE, OTHER, SELFPAY ==
[2021-07-22 16:35] LABS: COVID19 -Nasal RAPID Negative (Negative)
== END ==
PROVIDERS: PCP Family Medicine; Visit Provider Physical Medicine & Rehabilitation
DX: M96.1 Postlaminectomy syndrome, not elsewhere classified (principal); M54.16 Radiculopathy, lumbar region; D50.0 Iron deficiency anemia secondary to blood loss (chronic); I63.9 Cerebral infarction, unspecified; E11.42 Type 2 diabetes mellitus with diabetic polyneuropathy; R10.9 Unspecified abdominal pain; G47.33 Obstructive sleep apnea (adult) (pediatric); G89.29 Other chronic pain; Z79.4 Long term (current) use of insulin; Z20.822 Contact with and (suspected) exposure to COVID-19
CPT/HCPCS: 87635; 99214

== ENCOUNTER 2021-07-25 10:13 | Outpatient (CLI) | payer MEDICARE, OTHER, SELFPAY ==
[2021-07-25] VITALS (8 sets, daily range): BP systolic 117–147; BP diastolic 65–83; PULSE 70–79; RESP 16–20; TEMP 36.3; O2SAT 96–98
--- NOTE | 2021-07-25 10:16 | DI.RAD.S_ITS ---
PROCEDURE: PAIN L/S TRANSFORAMINAL INJECT INDICATIONS: Spondylosis COMPARISON: None. FINDINGS: Fluoroscopic spot filming was performed to verify placement of spinal needles at the left L1-2 level(s), as labeled on the films. Appropriate location(s) of the needle tip(s) was confirmed by injection of iodinated contrast. IMPRESSION: Fluoro guidance was provided intraoperatively for left-sided L1-2 transforaminal epidural steroid injection performed by ordering physician. Dictated by: Gutierrez Toro M.D. on 07/25/2021 at 11:37 Approved by: Gutierrez Toro M.D. on 07/25/2021 at 11:37
[2021-07-25] MEDS: MIDAZOLAM 2 MG/2 ML VIAL IV (11:02)
[2021-07-25] MEDS: BUPIVACAINE 0.25% (PF) VIAL 2 ML INJ (11:03)
[2021-07-25] MEDS: DEXAMETHASONE 10 MG/ML VIAL 20 MG INJ (11:03)
[2021-07-25] MEDS: BETAMETHASONE 30 MG/5 ML MDV 6 MG INJ (11:03)
[2021-07-25] MEDS: IOPAMIDOL 15 ML VIAL 3 ML INJ (11:04)
--- NOTE | 2021-07-25 11:14 | P.PCN_ITS ---
Date/Time/Diagnoses Date of procedure: 07/25/21 Time of procedure: 11:14 Pre-procedure diagnosis: 1. FORAMINAL STENOSIS WITH LE SYMPTOMS Post-procedure diagnosis: same Procedure Notes Procedure: 1. FLUOROSCOPICALLY GUIDED CONTRAST CONTROLLED TRANSFORAMINAL EPIDURAL STEROID INJECTION - LEFT L1/2 TFESI Indications: Flako is referred by Dr. Du for treatment of Foraminal Stenosis with left LE Symptoms Physician: Roger Krishnan Total Fluoroscopy time (seconds): 12 Total sedation minutes: 13 Complications: none Procedure in detail & Post-procedure care: FINDINGS Foraminal Nerve Root Compression secondary to disc disease and facet hypertrophy DESCRIPTION OF PROCEDURE Following review of allergy and review of potential side effects and complications, including, but not necessarily limited to, infection, allergic reaction, local tissue breakdown, stroke, temporary or permanent nerve injury, paralysis, and possible , the patient indicated that the patient understood and agreed to proceed. An informed consent document was signed by the patient, witnessed by a nurse, and placed in the patient's chart. Additionally, other treatment options including medications, modalities, and physical therapy were reviewed with the patient. After review of previous anaesthesic history and IV conscious sedation the patient was deemed safe to proceed with today?s procedure with IV conscious sedation as ASA class II designation. Safety time-out was performed to confirm patient ID, procedure to be performed and site of procedure. IV sedation was accomplished with a combination of 2mg of Versed was administered by the RN after DO order, titrated to patient comfort during the course of the procedure while the patient remained responsive to all verbal commands In the prone position following sterile prep and drape of the lumbar region, the left L1/2 posterior neuroforamen was identified fluoroscopically. The skin was anesthetized via a 25-gauge 1.5-inch needle with 1% lidocaine solution. At this point, a 25-gauge 3.5-inch spinal needle was atraumatically introduced and advanced under fluoroscopic guidance through the posterior left L1/2 neuroforamen to approximately the anterior aspect of the canal. Depth was confirmed on lateral view. Following negative aspiration, injection of approximately 1.5cc of Isovue 200 under live fluoroscopy in the AP view confirm ed excellent flow along the nerve root, into the epidural space without vascular or intrathecal uptake observed Radiological data, including multiple fluoroscopic views of the lumbosacral spine, reveal a spinal needle at the left L1/2 posterior neuroforamen. Subsequent views show flow of contrast material flowing superiorly and inferiorly along the nerve root confirming epidural flow. Subsequently, a test dose of 1.5 cc of 1% lidocaine solution was administered and patient was observed for two minutes for signs or symptoms of complications, including abdominal pain, shortness of breath, bilateral upper or lower extremity weakness, nausea and vomiting, prior to steroid injection. At this point, a total of 2cc or 20mg of dexamethasone and 6mg of betamethasone was injected without incident. The patient tolerated the procedure well without signs or symptoms of complications prior to transfer to the recovery area continued monitoring without incident. The patient was then transferred to the recovery area where they were observed for an appropriate time after the injection. The patient reported a VAS score of 7 prior to the procedure and a post-procedure VAS of 0. POST OP INSTRUCTIONS The patient was provided a Pain Log to continue to record their response to the target-specific procedure prior to follow-up visit with their referring physici an. Additionally, specific post-injection care instructions and a contact number to our office were provided if concerns arise regarding possible complications associated with the procedure are suspected.
== END 2021-07-25 11:34 | disposition home or self-care (01) ==
LOC: RAD 10:14
PROVIDERS: PCP Family Medicine; Referring Provider Physical Medicine & Rehabilitation; Visit Provider Physical Medicine & Rehabilitation
DX: M48.061 Spinal stenosis, lumbar region without neurogenic claudication (principal); M51.16 Intervertebral disc disorders with radiculopathy, lumbar region
CPT/HCPCS: 64483; 99152; J0702; J1100; J2250; J3010

== ENCOUNTER → 2021-08-14 09:45 | Outpatient (CLI) | payer MEDICARE, OTHER, SELFPAY ==
--- NOTE | 2021-08-27 16:48 | P.HOLT.S_ITS ---
Pad Machine Feeder Report Referral & Results Date Patient Seen: 08/14/21 Requesting provider: Roger Du Indication: Bradycardia Duration of monitoring (days): 7 Diary information: There were 3 patient diary entries and 1 patient triggered event Patient diary entries were variably associated with (within 45 seconds) PACs PVCs and ventricular bigeminy Patient triggered event was associated with sinus rhythm and simple PVC Data: Minimum heart rate identified was 44 beats per minute at 13:23 on 08/15/2021 Maximum sinus heart rate was 125 beats per minute at 22:19 on 08/20/2021 Maximum overall heart rate was 179 beats per minute at 14:10 on 08/14/2021 during a run of nonsustained ventricular tachycardia There were only rare supraventricular ectopic events which were less than 1% of identified beats Proximally 14.5% of identified beats were ventricular ectopic in origin including a 2 minute 20 second run of ventricular trigeminy and a 1 minute 50 second run of ventricular bigeminy There were 10 runs of nonsustained ventricular tachycardia with the fastest being a 4 beat run at the above rate of 179 beats per minute, the the longest run being 10 beats There were 10 runs of SVT with the longest being 15 beats in duration Impression: 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 Clinical correlation suggested Patient also with very rare very brief runs of SVT Patient not overly bradycardic during this monitoring period.
== END ==
PROVIDERS: PCP Family Medicine; Referring Provider Family Medicine; Visit Provider Family Medicine
DX: R00.1 Bradycardia, unspecified (principal)
CPT/HCPCS: 93242; 93248

== ENCOUNTER → 2021-10-22 08:47 | Outpatient (CLI) | payer MEDICARE, OTHER, SELFPAY ==
--- NOTE | 2021-10-22 | DI.CT.S_ITS ---
PROCEDURE: CT ABDOMEN PELVIS W CON INDICATIONS: Malignant neoplasm of prostate TECHNIQUE: After the administration of oral and IV contrast, axial sections were acquired from the lung bases to the pubic symphysis. Coronal and sagittal reformats were performed. For radiation dose reduction, the following was used: automated exposure control, adjustment of mA and/or kV according to patient size. COMPARISON: [facility], MR, MR LUMBAR SPINE WO CON, 07/11/2021, 12:58. [facility], CT, ABDOMEN W&WO CONTRAST, 06/29/2017, 11:44. FINDINGS: Image quality: Excellent. Lung bases: Unremarkable. Heart: At least moderate coronary artery calcification is seen. Heart size is normal. ABDOMEN: Liver: A mildly hyperenhancing liver masses seen within the central liver, as on series 4, image 32 measuring 2.9 cm. Simple appearing liver cysts are also seen, with the largest seen within the left liver measuring 3.8 cm and measuring 7 Hounsfield units. Gallbladder: Unremarkable. Biliary ducts: Unremarkable. Pancreas: Unremarkable. Spleen: Unremarkable. Adrenal Glands: There is an irregular right renal mass that measures up to 6.3 cm, as on series 2, image 28. The left adrenal gland is unremarkable. Kidneys and Ureters: At the superior posterior aspect of the right kidney, there is an enhancing exophytic mass seen that measures 5.3 cm, as on series 2, image 36. Numerous simple appearing bilateral peripelvic cysts are seen. Stomach and Bowel: Stomach, small bowel loops, and colon are unremarkable. Throughout the distal colon, there is moderate diverticula formation, particularly involving the sigmoid colon. No bruce findings of active diverticulitis can be seen, however. Peritoneum: No abnormal intraperitoneal fluid. No free air. Ventral Wall: A mild periumbilical hernia is seen, containing fat. Abdominal Nodes: No retroperitoneal or mesenteric adenopathy by size criteria. Vessels: Aorta and inferior vena cava are normal in size. Atherosclerotic calcification is noted. PELVIS: Pelvic Organs: The prostate is irregular at, and contains calcification. Bladder: Unremarkable. Pelvic Nodes: No enlarged lymph nodes. Miscellaneous: Bilateral fat containing inguinal hernias are seen. Bones: At least moderate lumbar spine degenerative change is seen. Mild levoconvex scoliotic curvature is noted. Postoperative changes are seen, with removal of portions of the posterior elements at L3-L4 and L4-L5. IMPRESSION: Irregular prostate, which contains calcifications. No enlarged inguinal or pelvic lymph nodes are seen. 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 This has increased in size compared to 2018. There is a 5.3 cm right renal mass seen, which is highly suspicious for a primary renal cell carcinoma. This has clearly increased in size compared to 2018. An apparent mildly enhancing 2.9 cm central liver mass is seen. This is similar to 2018 and may simply be related to benign, yet irregular vessels. For further evaluation, a dedicated liver protocol MRI without and with IV contrast could be considered (assuming that there is no contraindication to MRI). Incidental note is made of: At least moderate coronary artery calcification Simple appearing liver cysts Numerous bilateral peripelvic kidney cysts Fat containing periumbilical hernia Diverticulosis, without active diverticulitis Levoconvex scoliosis At least moderate lumbar spine degenerative change L3-L4 and L4-L5 postoperative change, with removal of portions of the posterior elements Bilateral fat containing inguinal hernias Dictated by: Miller Quintanilla M.D. on 10/22/2021 at 15:05 Approved by: Miller Quintanilla M.D. on 10/22/2021 at 15:14
[2021-10-22 09:40] LABS: BUN Creatinine Ratio 23.3 (6-22); Blood Urea Nitrogen 21 mg/dL (9-20); Calcium 9.5 mg/dL (8.4-10.2); Carbon Dioxide 27 mmol/L (22-32); Chloride 107 mmol/L (98-107); Estimated Glomerular Filt Rate > 60 mL/min (>60); Glucose 108 mg/dL (80-110); HEMOLYSIS < 15 (0-50); Potassium 4.1 mmol/L (3.4-5.1); Sodium 138 mmol/L (137-145)
== END ==
PROVIDERS: PCP Family Medicine; Referring Provider Urology; Visit Provider Urology
DX: C61 Malignant neoplasm of prostate (principal); C79.72 Secondary malignant neoplasm of left adrenal gland; K57.30 Diverticulosis of large intestine without perforation or abscess without bleeding; K42.9 Umbilical hernia without obstruction or gangrene; K40.20 Bilateral inguinal hernia, without obstruction or gangrene, not specified as recurrent; K76.89 Other specified diseases of liver; N28.89 Other specified disorders of kidney and ureter; I25.10 Atherosclerotic heart disease of native coronary artery without angina pectoris; N28.1 Cyst of kidney, acquired; M41.9 Scoliosis, unspecified; M47.816 Spondylosis without myelopathy or radiculopathy, lumbar region
CPT/HCPCS: 36415; 74177; 80048; Q9967

== ENCOUNTER → 2021-10-25 10:49 | Outpatient (CLI) | payer MEDICARE, OTHER, SELFPAY ==
--- NOTE | 2021-10-25 | DI.NM.S_ITS ---
PROCEDURE: NM BONE SCAN WHOLE BODY RADIOPHARMACEUTICAL: 20.6 mCi Tc-99m MDP IV. INDICATIONS: Malignant neoplasm of prostate TECHNIQUE: Delayed whole-body scintigrams were obtained approximately 3-4 hours after intravenous injection of radiotracer. Anterior and posterior views were acquired from vertex to feet. Additional left and right oblique views of the pelvis and hips were obtained. COMPARISON: [facility], CR, ANKLE 3 VIEWS LEFT, 04/21/2012, 10:04. [facility], CR, XR FOOT 3+ VIEWS LEFT, 06/23/2018, 10:44. NM, BONE SCAN THREE PHASE, 05/29/2011, 8:21. [facility], MR, MR LUMBAR SPINE WO CON, 07/11/2021, 12:58. [facility], CT, CT ABDOMEN PELVIS W CON, 10/22/2021, 10:27. FINDINGS: There are multiple foci of abnormal uptake involving the anterior aspect of the right 4th rib, the posterior medial aspect of the left 7th rib, possible inferior tip of the right scapula, and the left femoral neck, compatible with osseous metastases. No lesions are identified in skull, sternum, clavicles, bony pelvis, and visualized shafts of the long bones. There is low level increased uptake in cervical, thoracic and lumbar spine with distribution indistinguishable from degenerative disc and facet disease; early metastasis to spine could be obscured by degenerative changes. Foci of increased uptake in the shoulders bilaterally, wrists bilaterally, and the left ankle, compatible with degenerative/arthritic changes. Bilateral knee arthroplasties. IMPRESSION: 1. Suspect metastatic bone lesions involving the right 1st rib, left 7th rib, possible inferior tip of the right scapula, and proximal left femur. 2. Degenerative/arthritic changes as noted. Dictated by: Nnamdi Santiago M.D. on 10/25/2021 at 16:01 Approved by: Nnamdi Santiago M.D. on 10/25/2021 at 16:11
== END ==
PROVIDERS: PCP Family Medicine; Referring Provider Urology; Visit Provider Urology
DX: C61 Malignant neoplasm of prostate (principal); M89.9 Disorder of bone, unspecified
CPT/HCPCS: 78306; A9503

== ENCOUNTER → 2021-11-04 10:06 | Outpatient (CLI) | payer MEDICARE, OTHER, SELFPAY ==
[2021-11-04 12:39] LABS: COVID19 -Nasal RAPID Negative (Negative)
== END ==
PROVIDERS: PCP Family Medicine; Visit Provider Physical Medicine & Rehabilitation
DX: Z20.822 Contact with and (suspected) exposure to COVID-19 (principal)
CPT/HCPCS: 87635; C9803

== ENCOUNTER 2021-11-05 07:32 | Outpatient (CLI) | payer MEDICARE, OTHER, SELFPAY ==
[2021-11-05] VITALS (8 sets, daily range): BP systolic 115–154; BP diastolic 60–87; PULSE 61–70; RESP 16–20; TEMP 36; O2SAT 97–100
--- NOTE | 2021-11-05 07:38 | DI.RAD.S_ITS ---
PROCEDURE: PAIN L/SI FACET INJ/BLK 1STL INDICATIONS: SPONDYLOSIS COMPARISON: [facility], NM, NM BONE SCAN WHOLE BODY, 10/25/2021, 13:23. [facility], MR, MR LUMBAR SPINE WO CON, 07/11/2021, 12:58. [facility], CR, XR LUMBAR SPINE 2-3V, 05/08/2021, 12:08. FINDINGS: Fluoroscopic spot filming was performed to verify placement of spinal needles at the T12-L1, L1-L2 and L2-L3 facet joints level(s), as labeled on the films. Appropriate location(s) of the needle tip(s) was confirmed by injection of iodinated contrast. IMPRESSION: Fluoroscopy for pain management. Dictated by: Nnamdi Santiago M.D. on 11/05/2021 at 15:20 Approved by: Nnamdi Santiago M.D. on 11/05/2021 at 15:20
[2021-11-05] MEDS: MIDAZOLAM 2 MG/2 ML VIAL IV (08:34)
[2021-11-05] MEDS: BUPIVACAINE 0.5% (PF) VIAL 2 ML INJ (08:41)
[2021-11-05] MEDS: BETAMETHASONE 30 MG/5 ML MDV 12 MG INJ (08:41)
[2021-11-05] MEDS: IOPAMIDOL 15 ML VIAL 3 ML INJ (08:41)
--- NOTE | 2021-11-05 08:48 | P.PCN_ITS ---
Date/Time/Diagnoses Date of procedure: 11/05/21 Time of procedure: 08:49 Pre-procedure diagnosis: 1. FACET ARTHROPATHY, 2. AXIAL LBP, 3. MULTILEVEL DDD, Post-procedure diagnosis: same Procedure Notes Procedure: 1. FLUOROSCOPICALLY GUIDED CONTRAST CONTROLLED FACET JOINT INJECTIONS LEFT T12/L1, L1/2, L2/3 Indications: Flako is referred by Dr. Du is referred for treatment of Axial LBP Physician: Roger Krishnan Total Fluoroscopy time (seconds): 8 Total sedation minutes: 10 Complications: none Procedure in detail & Post-procedure care: FINDINGS Multilevel Facet Arthropathy with Clinically significant axial LBP DESCRIPTION OF PROCEDURE Fluoroscopically guided, contrast-controlled left T12/L1, L1/2, L2/3 facet joint injections. Following review of allergy and review of potential side effects and complications, including, but not necessarily limited to, infection, allergic reaction, local tissue breakdown, stroke, temporary or permanent nerve injury, paralysis, and possible , the patient indicated that the patient understood and agreed to proceed. An informed consent document was signed by the patient, witnessed by a nurse, and placed in the patient's chart. Additionally, other treatment options including medications, modalities, and physical therapy were reviewed with the patient. After review of previous anaesthesic history and IV conscious sedation the patient was deemed safe to proceed with today?s procedure with IV conscious sedation as ASA class II designation. Safety time-out was performed to confirm patient ID, procedure to be performed and site of procedure. IV sedation was accomplished with a combination of 2mg of Versed administered by the RN after DO order, titrated to patient comfort during the course of the procedure while the patient remained responsive to all verbal commands In the prone position, following sterile prep and drape of the lumbar region, the posterior aspect of the left T12/L1, L1/2, L2/3 facet joints were identified fluoroscopically. The skin was anesthetized via a 25-gauge 1.5-inch needle with 1% lidocaine solution into the corresponding facet joints. At this point, a 22- gauge 3.5-inch spinal needle was atraumatically introduced and advanced under fluoroscopic guidance into the corresponding facet joints. Following negative aspiration, injections of approximately 0.2-cc of Isovue 200 confirmed interarticular placement without vascular uptake. Radiological data, including multiple fluoroscopic views of the lumbosacral spine, reveal a spinal needle at the left T12/L1, L1/2, L2/3 facet joints. Subsequent views show flow of contrast material both superiorly and inferiorly within the joint space without vascular or intrathecal uptake. At this point, a total of 0.5 cc including a mixture of 0.25cc Marcaine and 0.25cc betamethasone was injected without complication into each of the corresponding facet joints. The patient tolerated the procedure well without signs or symptoms of complications prior to transfer to the recovery area continued monitoring without incident. The patient was then transferred to the recovery area where they were observed for an appropriate period of time after the injection. The patient reported a VAS score of 7 prior to the procedure and a post-procedure VAS of 0. POST OP INSTRUCTIONS The patient was provided a Pain Log to continue to record their response to the target-specific procedure prior to follow-up visit with their referring physician. Additionally, specific post-injection care instructions and a contact number to our office were provided if concerns arise regarding possible complications associated with the procedure are suspected.
== END 2021-11-05 09:14 | disposition home or self-care (01) ==
LOC: RAD 07:33
PROVIDERS: PCP Family Medicine; Referring Provider Physical Medicine & Rehabilitation; Visit Provider Physical Medicine & Rehabilitation
DX: M47.816 Spondylosis without myelopathy or radiculopathy, lumbar region (principal); M51.36 Other intervertebral disc degeneration, lumbar region
CPT/HCPCS: 64493; 64494; 64495; 99152; J0702; J2250

== ENCOUNTER → 2022-01-20 16:31 | Outpatient (CLI) | payer MEDICARE, OTHER, SELFPAY ==
[2022-01-20 17:44] LABS: Add Manual Diff / Slide Review NO; Basophils Absolute Auto 0 /uL (0-100); Basophils Percent Auto 0.4 % (0-2); Eosinophils Absolute Auto 200 /uL (0-450); Eosinophils Percent Auto 3.2 % (2-4); Hematocrit 34.5 % (41-53); Hemoglobin 11.6 g/dL (13.5-17.5); Lymphocytes Absolute Auto 1300 /uL (1100-4500); Lymphocytes Percent Auto 18.7 % (25-40); Mean Corpuscular HGB Conc 33.7 % (30-36); Mean Corpuscular Hemoglobin 31.3 PG (26-34); Mean Corpuscular Volume 92.8 fL (80-100); Monocytes Absolute Auto 700 /uL (0-900); Monocytes Percent Auto 9.7 % (3-14); Neutrophils Absolute Auto 4700 /uL (1500-7000); Platelet Count 215 X10^3/uL (150-400); Red Blood Cell Count 3.72 X10^6/uL (4.5-5.9); Red Cell Distribution Width 15.1 % (11.6-14.8); White Blood Cell Count 6.9 X10^3/uL (4.5-11.0)
[2022-01-20 18:11] LABS: Alanine Aminotransferase 19 IU/L (<50); Albumin 3.4 g/dL (3.5-5.0); Albumin Globulin Ratio 1.3 (1.0-2.8); Alkaline Phosphatase 85 U/L (38-126); Aspartate Aminotransferase 25 IU/L (17-59); BUN Creatinine Ratio 25.3 (6-22); Bilirubin Total 0.7 mg/dL (0.2-1.3); Blood Urea Nitrogen 21 mg/dL (9-20); Calcium 9.5 mg/dL (8.4-10.2); Carbon Dioxide 26 mmol/L (22-32); Chloride 107 mmol/L (98-107); Cholesterol 147 mg/dL (140-199); Estimated Glomerular Filt Rate > 60 mL/min (>60); Globulin 2.7 g/dL (1.7-4.1); Glucose 212 mg/dL (80-110); HDL Cholesterol 43 mg/dL (40-60); HEMOLYSIS < 15 (0-50); LDL Cholesterol Calculated 68 mg/dL (<100); Potassium 4.1 mmol/L (3.4-5.1); Sodium 138 mmol/L (137-145); Total Protein 6.1 g/dL (6.3-8.2); Triglycerides 182 mg/dL (35-150); VLDL Cholesterol Calculated 36 mg/dL (2-30)
[2022-01-20 18:14] LABS: Creatinine Urine Random 82.1 mg/dL
[2022-01-20 18:19] LABS: Microalbumi Creatinin Ratio Ur 107.1 ug/mg CR (<30); Microalbumin Urine Random 8.8 mg/dL (0-1.6)
[2022-01-20 18:20] LABS: Hemoglobin A1C% w Est Avg Glu 6.1 % (4.0-6.0)
== END ==
PROVIDERS: PCP Family Medicine; Referring Provider Family Medicine; Visit Provider Family Medicine
DX: E11.21 Type 2 diabetes mellitus with diabetic nephropathy (principal); D64.9 Anemia, unspecified; I63.212 Cerebral infarction due to unspecified occlusion or stenosis of left vertebral artery; I72.9 Aneurysm of unspecified site; E78.5 Hyperlipidemia, unspecified; I10 Essential (primary) hypertension
CPT/HCPCS: 36415; 80053; 80061; 82043; 82570; 83036; 85025

== ENCOUNTER → 2022-03-24 13:53 | Outpatient (CLI) | payer MEDICARE, OTHER, SELFPAY ==
--- NOTE | 2022-04-07 15:34 | P.HOLT.S_ITS ---
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 Referral & Results Date Patient Seen: 03/24/22 Requesting provider: Roger Du Indication: Bradycardia Duration of monitoring (days): 7 Diary information: There was 1 patient triggered event that was associated with sinus rhythm, PVCs and ventricular bigeminy Data: Minimum heart rate identified was 33 beats per minute at 05:03 on 03/30/2022 during an extended run of ventricular bigeminy, minimum sinus heart rate was 52 beats per minute Maximum sinus heart rate was 122 beats per minute at 13:25 on 03/28/2022 Maximum overall heart rate was 167 beats per minute at 19:53 on 03/25/2022 during a run of SVT Less than 1% of identified beats were supraventricular ectopic in origin Approximately 13.2% of identified beats were ventricular ectopic in origin which would classify them as rare. This included a 3 minute 20 second run of ventricular bigeminy and a 35.9 second run of ventricular trigeminy There were 9 runs of SVT with the fastest being a 7 beat run at 167 beats per minute the longest lasting 12.8 seconds There was 1 run of nonsustained monomorphic ventricular tachycardia that was 4 beats in duration No pauses of 3 seconds or longer episodes of atrial fibrillation identified on this study Impression: 7 day pvc monitor demonstrating above heart rate ranges without significant bradycardia, accept perhaps during a run of ventricular bigeminy. Clinical correlation suggested
== END ==
PROVIDERS: PCP Family Medicine; Referring Provider Family Medicine; Visit Provider Family Medicine
DX: R00.1 Bradycardia, unspecified (principal)
CPT/HCPCS: 93242; 93244

== ENCOUNTER → 2022-05-08 13:55 | Outpatient (CLI) | payer MEDICARE, OTHER, SELFPAY ==
[2022-05-08 15:27] LABS: Add Manual Diff / Slide Review NO; Basophils Absolute Auto 100 /uL (0-100); Basophils Percent Auto 0.8 % (0-2); Eosinophils Absolute Auto 200 /uL (0-450); Hematocrit 37.2 % (41-53); Hemoglobin 12.5 g/dL (13.5-17.5); Lymphocytes Absolute Auto 1200 /uL (1100-4500); Lymphocytes Percent Auto 15.2 % (25-40); Mean Corpuscular HGB Conc 33.5 % (30-36); Mean Corpuscular Hemoglobin 30.2 PG (26-34); Mean Corpuscular Volume 90.2 fL (80-100); Monocytes Absolute Auto 800 /uL (0-900); Neutrophils Absolute Auto 5800 /uL (1500-7000); Platelet Count 123 X10^3/uL (150-400); Red Blood Cell Count 4.12 X10^6/uL (4.5-5.9); White Blood Cell Count 8.1 X10^3/uL (4.5-11.0)
== END ==
PROVIDERS: PCP Family Medicine; Referring Provider Internal Medicine; Visit Provider Internal Medicine
DX: C64.1 Malignant neoplasm of right kidney, except renal pelvis (principal)
CPT/HCPCS: 36415; 85025

== ENCOUNTER 2022-05-09 13:34 | Emergency (ER) | payer MEDICARE, OTHER, SELFPAY ==
[2022-05-09 13:43] VITALS: BP 118/64; PULSE 85; RESP 18; TEMP 36.6; O2SAT 99; BMI 27.1
--- NOTE | 2022-05-09 13:54 | DI.RAD.S_ITS ---
PROCEDURE: XR FOOT LT MIN 3V INDICATIONS: Wound on second/third top of toes TECHNIQUE: 3 views of the foot were acquired. COMPARISON: [facility], CR, XR FOOT 3+ VIEWS LEFT, 06/23/2018, 10:44. [facility], CR, XR FOOT LT MIN 3V, 10/08/2018, 14:25. FINDINGS: Bones: No fractures or dislocations. No suspicious bony lesions. No radiographic evidence of osteomyelitis. Pin pin fixation with arthrodesis of the interphalangeal joint of the great toe seen. All the remaining toes have clawtoe deformities. There are degenerative changes in the midfoot and hindfoot. Achilles calcaneal spurs noted. Soft tissues: No tibiotalar joint effusion. IMPRESSION: 1. No evidence of osteomyelitis. 2. Postoperative changes and degenerative changes are unchanged. Dictated by: Rosales Madrid M.D. on 05/09/2022 at 14:41 Approved by: Rosales Madrid M.D. on 05/09/2022 at 14:43
--- NOTE | 2022-05-09 15:41 | ED.WOUNDLAC ---
HPI - Wound/Laceration <Hyun Mckeon, [facility] - Last Filed: 05/09/22 16:33> General Chief Complaint: Wound/Laceration Stated Complaint: open sores on 2 toes, diabetic Time Seen by Provider: 05/09/22 14:51 Source: patient and family Mode of arrival: Wheelchair History of Present Illness HPI narrative: This is an 86-year-old gentleman with history of CVA w/ left-sided deficit, diabetes 2, toe wounds on his left foot for the last 2 months which he states have gotten worse and he presents to the emergency department today for this. He is currently on cephalexin which he was started on in the walk-in clinic on 04/30/2022. He is taking 500 mg TID. Patient states that his sent him in today for worsening to the wounds. His real estate appraiser supervisor is not available until next , states that it is Dr. Huston from [place]. His PCP is Dr. Du, he denies fever, chills, increased fatigue, or any systemic symptoms whatsoever. 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 He has an allergy to levofloxacin. Related Data Home Medications Medication Instructions Recorded Confirmed Fiber-Caps (psyllium husk) 2 cap DAILY 07/21/18 04/09/22 Vitamin B-12 1,000 mcg DAILY 07/21/18 04/09/22 Vitamin D3 2,000 unit DAILY 07/21/18 04/09/22 Respironics DreamStation CPAP #1 ea 08/12/18 04/09/22 sitagliptin phosphate 50 mg tablet 50 mg PO DAILY 07/22/21 04/09/22 (Januvia) atorvastatin 40 mg tablet 40 mg PO BEDTIME 10/28/21 04/09/22 finasteride 5 mg tablet 5 mg PO DAILY 10/28/21 04/09/22 glipizide 5 mg tablet, extended tab PO 10/28/21 04/09/22 release 24 hr losartan 50 mg tablet 50 mg PO DAILY 10/28/21 04/09/22 Previous Rx's Medication Instructions Recorded Aircurve Auto Bipap #1 ea 07/05/18 doxycycline hyclate 100 mg capsule 100 mg PO BID wound 10 days #20 05/09/22 caps mupirocin 2 % topical ointment 1 applic topical BID #22 grams 05/09/22 cefpodoxime 100 mg tablet 100 mg PO BID #14 tabs 05/11/22 Allergies Allergy/AdvReac Type Severity Reaction Status Date / Time levofloxacin [LEVOFLOXACIN] Allergy Severe SWOLLEN Verified 04/09/22 09:13 TONGUE alteplase [ALTEPLASE] Allergy Unknown got for Verified 04/09/22 09:13 cva and was successful. NOT ANAPHALAXIS PER PT Review of Systems <BESSY Yap - Last Filed: 05/09/22 16:33> Review of Systems ROS Unobtainable: All systems reviewed & are unremarkable except as noted in HPI and below Patient History <BESSY Yap - Last Filed: 05/09/22 16:33> Medical History Anemia 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 CVA (cerebral vascular accident) Diverticulitis DM type 2 (diabetes mellitus, type 2) Facet arthropathy, lumbar Fall Flank pain, chronic History of colon polyps Hyperlipidemia Hypertension Hypokalemia Lower GI bleed Lumbar post-laminectomy syndrome Obstructive sleep apnea of adult Pressure ulcer Rectal bleeding Snoring Social History marital status: household members: spouse lives independently: No caregiver/support person: Yes (Reagan) housing: house Smoking Status: Never smoker Smoking Status: Never smoker Substance Use Type: does not use Exam <BESSY Yap - Last Filed: 05/09/22 16:33> Narrative Exam Narrative: Reviewed vitals signs and nursing notes. General: cooperative, comfortable, in no acute distress, well groomed, afebrile, pleasant, afebrile HEENT: symmetrical facial expressions, moist mucous membranes MSK: moves all extremities, neurovascularly intact, normal tone, ambulatory without weakness, without acute sensation changes or pain Skin: brisk capillary refill, without pallor or erythema, left 2nd and 3rd toes have ulceration to the anterior aspect without significant erythema. No purulence discharge, dark central wound with full-thickness ulceration, patient has been using Betadine for wound care and notes the discoloration is from that. There is no ascending erythema or increased edema in his lower leg compared with the right. CMS is intact, sensation is diminished at baseline Neuro: normal speech and cognition, A&O x3, ambulatory, clear speech Psych: mental status is grossly normal, congruent mood, normal affect, pleasant and cooperative Initial Vital Signs Initial Vital Signs: Vital Signs Temperature 97.8 F 05/09/22 13:43 Pulse Rate 85 05/09/22 13:43 Respiratory Rate 18 05/09/22 13:43 Blood Pressure 118/64 05/09/22 13:43 Pulse Oximetry 99 05/09/22 13:43 Oxygen Delivery Method 05/09/22 13:43 <Ana Amaro DO - Last Filed: 05/11/22 19:51> Initial Vital Signs Initial Vital Signs: Vital Signs Temperature 97.8 F 05/09/22 13:43 Pulse Rate 85 05/09/22 13:43 Respiratory Rate 18 05/09/22 13:43 Blood Pressure 118/64 05/09/22 13:43 Pulse Oximetry 99 05/09/22 13:43 Oxygen Delivery Method 05/09/22 13:43 <Joseph Trejo DO - Last Filed: 05/13/22 10:47> Initial Vital Signs Initial Vital Signs: Vital Signs Temperature 97.8 F 05/09/22 13:43 Pulse Rate 85 05/09/22 13:43 Respiratory Rate 18 05/09/22 13:43 Blood Pressure 118/64 05/09/22 13:43 Pulse Oximetry 99 05/09/22 13:43 Oxygen Delivery Method 05/09/22 13:43 Course <BESSY Yap - Last Filed: 05/09/22 16:33> Course Course Narrative: Wound care completed by bedside RN, wound culture completed by myself and is pending, referral to wound care completed Orders Ordered: Discontinued Medications Bacitracin (Bacitracin Oint 0.9 Gm Pckt) 1 applic TOP NOW ONE Stop: 05/09/22 15:27 Last Admin: 05/09/22 15:47 Dose: 1 applic Documented By: LIONEL Doxycycline Hyclate (Doxycycline Hyclate 100 Mg Tablet) 100 mg PO NOW ONE Stop: 05/09/22 15:43 Last Admin: 05/09/22 15:47 Dose: 100 mg Documented By: LIONEL Vital Signs Vital signs: Vital Signs - 8 hr 05/09/22 13:43 Temperature 97.8 F Pulse Rate 85 Respiratory Rate 18 Blood Pressure 118/64 Pulse Oximetry 99 Oxygen Delivery Method Room Air <Ana Amaro DO - Last Filed: 05/11/22 19:51> Orders Ordered: Discontinued Medications Bacitracin (Bacitracin Oint 0.9 Gm Pckt) 1 applic TOP NOW ONE Stop: 05/09/22 15:27 Last Admin: 05/09/22 15:47 Dose: 1 applic Documented By: LIONEL Doxycycline Hyclate (Doxycycline Hyclate 100 Mg Tablet) 100 mg PO NOW ONE Stop: 05/09/22 15:43 Last Admin: 05/09/22 15:47 Dose: 100 mg Documented By: LIONEL Vital Signs Vital signs: Vital Signs - 8 hr 05/09/22 13:43 Temperature 97.8 F Pulse Rate 85 Respiratory Rate 18 Blood Pressure 118/64 Pulse Oximetry 99 Oxygen Delivery Method Room Air <Joseph Trejo DO - Last Filed: 05/13/22 10:47> Orders Ordered: Discontinued Medications Bacitracin (Bacitracin Oint 0.9 Gm Pckt) 1 applic TOP NOW ONE Stop: 05/09/22 15:27 Last Admin: 05/09/22 15:47 Dose: 1 applic Documented By: LIONEL Doxycycline Hyclate (Doxycycline Hyclate 100 Mg Tablet) 100 mg PO NOW ONE Stop: 05/09/22 15:43 Last Admin: 05/09/22 15:47 Dose: 100 mg Documented By: LIONEL Vital Signs Vital signs: Vital Signs - 8 hr 05/09/22 13:43 Temperature 97.8 F Pulse Rate 85 Respiratory Rate 18 Blood Pressure 118/64 Pulse Oximetry 99 Oxygen Delivery Method Room Air MDM - Wound/Laceration <CARMEN YapP - Last Filed: 05/09/22 16:33> Lab Data Lab results narrative: Name: Flako Dodson Riley Age/Sex: 82/M Attend Dr: Naseem Qureshi MD Unit#: [id number] : 1935Location: WC Re10/08/17 Disch: Status: REG CLI SPEC #: [id number] DIOMEDES: 10/08/17-UNK STATUS: COMP REQ #: [id number] SPDESC: Wound RECD: 10/08/[address] [facility] [address]: Naseem Qureshi MD SOURCE: TOE ENTR: 10/08/[address]: FAX TO: ORDERED: WOUND Cx and GS COMMENTS: [id number] Procedure Result Verified Site Gram Stain Final 10/08/17 No cells/ Organisms seen No cells or organisms seen White blood cells No WBC seen Aerobic Culture for wounds Final 10/10/17 Organism 1 Enterococcus faecalis Growth HEAVY Organism 2 Staphylococcus intermedius Growth HEAVY 1. Enterococcus faecalis M.I.C. RX --------- --- * Ampicillin S * Daptomycin S * Vancomycin S * Ciprofloxacin S * Doxycycline R * Erythromycin R * Gentamicin 500 R * Levofloxacin S * Linezolid S * Streptomycin 2000 S * Tetracycline R * Tigecycline S 2. Staphylococcus intermedius M.I.C. RX --------- --- * Daptomycin S * Vancomycin S * Ciprofloxacin R * Clindamycin S * Doxycycline S * Erythromycin S * Gentamicin S * Levofloxacin I * Linezolid S * Moxifloxacin S * Oxacillin Saad S * Rifampin S * Tetracycline S * Trimethoprim/Sulfamethoxazole R Enterococcus faecalis Staphylococcus intermedius M.I.C. RX M.I.C. RX --------- --- --------- --- * Ampicillin S * Daptomycin S S * Vancomycin S S * Ciprofloxacin S R * Clindamycin S * Doxycycline R S * Erythromycin R S * Gentamicin S * Gentamicin 500 R * Levofloxacin S I * Linezolid S S * Moxifloxacin S * Oxacillin Saad S * Rifampin S * Streptomycin 2000 S * Tetracycline R S * Tigecycline S * Trimethoprim/Sulfamethoxazole R Anaerobic Culture Final 10/09/17 Test not performed END OF REPORT Imaging Data Extremity x-ray #1: Radiologist's Impression: PROCEDURE:? XR FOOT LT MIN 3V ? INDICATIONS:? Wound on second/third top of toes ? TECHNIQUE:? 3 views of the foot were acquired.? ? COMPARISON:? [facility], CR, XR FOOT 3+ VIEWS LEFT, 06/23/2018, 10:44.? [facility], CR, XR FOOT LT MIN 3V, 10/08/2018, 14:25. ? FINDINGS:? ? Bones:? No fractures or dislocations.? No suspicious bony lesions.? No radiographic evidence of osteomyelitis.? Pin pin fixation with arthrodesis of the interphalangeal joint of the great toe seen.? All the remaining toes have clawtoe deformities.? There are degenerative changes in the midfoot and hindfoot.? Achilles calcaneal spurs noted. ? Soft tissues:? No tibiotalar joint effusion. ? IMPRESSION:? 1. No evidence of osteomyelitis. 2. Postoperative changes and degenerative changes are unchanged.? ? ? Dictated by: Rosales Madrid M.D. on 05/09/2022 at 14:41 ? ? Approved by: Rosales Madrid M.D. on 05/09/2022 at 14:43 ? MDM Narrative Medical decision making narrative: This is a pleasant 86-year-old male presents emergency department with worsening diabetic ulcers to his left 2nd and 3rd toes on the anterior aspect. He was started on cephalexin on 04/30/2022 from the walk-in clinic at 500 mg TID for these wounds, states that he is had them for a couple of months and sees Dr. Huston from Podiatry in [place]. She is unavailable until next week on , he has history of multiple drug-resistant organisms from 2018, no current wound culture available, repeated this today. Will follow-up on wound culture and start on doxycycline. Patient is not anticoagulated, appears to have mild cellulitis around without ascending, does not have any systemic symptoms of illness. Wound care referral was placed, patient will continue on cephalexin and doxycycline until notified otherwise, will send chart to real estate appraiser supervisor as well as wound care. Patient understands to continue with wound care, elevate as needed, return for any worsening systemic symptoms of illness including fever, not feeling well, or worsening. Patient is appropriate and amenable to discharge home. Vital signs are stable on repeat examination is unremarkable. Patient has been informed of results. Patient has been given strict return to ER precautions for any new or worsening symptoms. Patient understands to follow up closely with outpatient providers as instructed. Patient understands plan and agrees to discharge home. All questions and concerns answered at this time. <Ana mAaro, DO - Last Filed: 05/11/22 19:51> MDM Narrative Medical decision making narrative: This is a pleasant 86-year-old male presents emergency department with worsening diabetic ulcers to his left 2nd and 3rd toes on the anterior aspect. He was started on cephalexin on 04/30/2022 from the walk-in clinic at 500 mg TID for these wounds, states that he is had them for a couple of months and sees Dr. Huston from Podiatry in [place]. She is unavailable until next week on , he has history of multiple drug-resistant organisms from 2017, no current wound culture available, repeated this today. Will follow-up on wound culture and start on doxycycline. Patient is not anticoagulated, appears to have mild cellulitis around without ascending, does not have any systemic symptoms of illness. Wound care referral was placed, patient will continue on cephalexin and doxycycline until notified otherwise, will send chart to real estate appraiser supervisor as well as wound care. Patient understands to continue with wound care, elevate as needed, return for any worsening systemic symptoms of illness including fever, not feeling well, or worsening. Patient is appropriate and amenable to discharge home. Vital signs are stable on repeat examination is unremarkable. Patient has been informed of results. Patient has been given strict return to ER precautions for any new or worsening symptoms. Patient understands to follow up closely with outpatient providers as instructed. Patient understands plan and agrees to discharge home. All questions and concerns answered at this time. 05/11/22 Sondra-checking wound cultures positive for Pseudomonas with insensitivity to imipenem. Patient was previously given doxycycline. Changing prescription to cefpodoxime which is sent to patient's pharmacy of choice. Nursing staff to call patient Discharge Plan Departure Patient Disposition: Home Clinical Impression: Diabetic ulcer of foot associated with diabetes mellitus due to underlying condition, limited to breakdown of skin Qualifiers: Diabetic foot ulcer location: toe Laterality: left Qualified Code(s): E08.621 - Diabetes mellitus due to underlying condition with foot ulcer Instructions: Diabetic Foot Ulcer Activity Restrictions/Additional Instructions: *You have been diagnosed with wounds to your toes which have not getting worse and history of infections to your toes in the past that has been resistant to antibiotics. Please also start this new antibiotic today and take both of them until your wound culture growth is complete in 2-3 days. We will call you if we need to change her antibiotic regimen, and send this note to your primary doctor, and your Buddy Valderrama real estate appraiser supervisor. I have placed referral for you to wound care, they should call you by Thursday, hopefully they call you today and set up an appointment for wound care and dressing changes. Please apply the topical antibiotic ointment, continue with dressing changes, and return if your wounds get worse. I hope you start feeling better soon, if you develop a fever, or other symptoms involving your body and feeling poorly, please come back here. I wish you the best. *What to do: *Please continue to take your regular medications as directed. [x ] New medication prescriptions sent to your pharmacy: [ ] [ ] New medication written as a paper prescription [ ] No new medications given *Please follow up with your primary care provider in 2-3 days, call for an appointment. Let them know you were seen in the Emergency Department and that we asked that you be seen for follow-up. We will electronically transmit a record of today's note if your PCP is in our system *If you do not have a primary care provider please contact [phone] to establish care with one of the [facility] primary care providers. *Return to Emergency Department if you should have any new, worsening, or concerning symptoms, such as [fever greater than 101F, chills, worsening pain, persistent vomiting or other bothersome symptoms]. Prescriptions: New doxycycline hyclate 100 mg capsule 100 mg PO BID 10 Days Qty: 20 0RF mupirocin 2 % ointment 1 applic topical BID Qty: 22 0RF cefpodoxime 100 mg tablet 100 mg PO BID Qty: 14 0RF Rx Instructions: must administer with a meal/food No Action Fiber-Caps (psyllium husk) 2 cap DAILY Vitamin B-12 1,000 mcg 1,000 mcg DAILY Vitamin D3 2,000 units 2,000 unit DAILY Januvia 50 mg tablet 50 mg PO DAILY finasteride 5 mg tablet 5 mg PO DAILY atorvastatin 40 mg tablet 40 mg PO BEDTIME losartan 50 mg tablet 50 mg PO DAILY glipizide 5 mg tablet extended release 24hr PO (DME) Respironics DreamStation CPAP Qty: 1 Dose Instruction: As directed Label Comments: Pressure: 5-10 cmH2O DME: [employer] Rx Instructions: As directed (DME) Aircurve Auto Bipap Qty: 1 0RF Dose Instruction: As directed Rx Instructions: EPAP min 4, IPAP max 12, PS 4 P-10 large [employer] Referrals: [facility] [Outside] Lelia Huston DPM [Non-Staff] - As soon as possible Roger Du MD [Primary Care Provider] - <Joseph Trejo DO - Last Filed: 05/13/22 10:47> Cosign ED Attending Cosignature Attestation: I was immediately available in the department for consultation. This documentation has been reviewed and I agree with assessment and plan. Supervised by Joseph Trejo DO
[2022-05-09] MEDS: BACITRACIN OINT 0.9 GM PCKT 1 APPLIC TOP (15:47)
[2022-05-09] MEDS: DOXYCYCLINE HYCLATE 100 MG TABLET PO (15:47)
[2022-05-09 16:32] VITALS: BP 131/60; PULSE 52; O2SAT 93
== END 2022-05-09 16:36 | disposition home or self-care (01) ==
PROVIDERS: Emergency Provider Nurse Practitioner Critical Care Medicine; PCP Family Medicine; Referring Provider Family Medicine
DX: E11.621 Type 2 diabetes mellitus with foot ulcer (principal); Z79.899 Other long term (current) drug therapy
CPT/HCPCS: 73630; 87070; 87075; 87077; 87186; 87205; 99283

== ENCOUNTER → 2022-05-23 14:09 | Outpatient (CLI) | payer MEDICARE, OTHER, SELFPAY | PROVIDERS: PCP Family Medicine; Referring Provider Nurse Practitioner Critical Care Medicine; Visit Provider Nurse Practitioner Family | DX: L89.152 Pressure ulcer of sacral region, stage 2 (principal); L97.522 Non-pressure chronic ulcer of other part of left foot with fat layer exposed; E11.621 Type 2 diabetes mellitus with foot ulcer; E11.628 Type 2 diabetes mellitus with other skin complications; R60.0 Localized edema; L53.9 Erythematous condition, unspecified | CPT/HCPCS: 11042; 87070; 87075; 87077; 87186; 87205; 99213; 99214 ==

== ENCOUNTER 2022-06-07 10:12 | Observation (INO) | payer MEDICARE, OTHER, SELFPAY ==
[2022-06-07] VITALS (29 sets, daily range): BP systolic 121–144; BP diastolic 58–83; PULSE 74–104; RESP 10–29; TEMP 36.6–37.1; O2SAT 89–99; BMI 26.8; BMI 27.0
--- NOTE | 2022-06-07 10:21 | DI.CT.S_ITS ---
PROCEDURE: CT CERVICAL SPINE WO CON INDICATIONS: fall TECHNIQUE: Noncontrast 3 mm thick sections acquired from the skull base to the T4 level. Sagittal and coronal reformats were then constructed. For radiation dose reduction, the following was used: automated exposure control, adjustment of mA and/or kV according to patient size. COMPARISON: [facility], CR, XR CHEST 1V, 06/07/2022, 10:34. [facility], CT, CT HEAD/BRAIN WO CON, 06/07/2022, 10:36. [facility], MR, C-SPINE W&WO CONTRAST, 10/26/2014, 11:34. FINDINGS: Image quality: Excellent. Bones: No fractures or dislocations. Visualized superior ribs are intact. Anterior fixation hardware can be seen at C3-C4, with a disc spacer. Posterior fixation hardware can be seen on both sides at C4-C5. There is mild lucency seen adjacent to the left at the C5 level, as seen on series 5, image 58. The hardware otherwise appears intact. There is moderate disc space narrowing at C5-C6 and moderate to severe disc space narrowing at C6-C7. Several levels of bridging anterior osteophytes can be seen. There is fusion the left-sided facets at C3-C4. Mild levoconvex scoliotic curvature is noted. Soft tissues: Prevertebral soft tissues are normal in thickness. No paravertebral hematomas. No apical pneumothoraces. Relatively prominent atherosclerotic calcification can be seen. There is partial visualization of a right-sided chest port. IMPRESSION: Negative for acute fracture. Postoperative hardware is seen anteriorly and posteriorly. There is mild lucency seen adjacent to the left C5 screw, which is consistent with early loosening change. Dictated by: Miller Quintanilla M.D. on 06/07/2022 at 10:10 Approved by: Miller Quintanilla M.D. on 06/07/2022 at 10:15
--- NOTE | 2022-06-07 10:21 | DI.RAD.S_ITS ---
PROCEDURE: XR CHEST 1V INDICATIONS: fall TECHNIQUE: One view of the chest was acquired. COMPARISON: [facility], CT, CT CERVICAL SPINE WO CON, 06/07/2022, 10:36. [facility], CT, CT HEAD/BRAIN WO CON, 06/07/2022, 10:36. [facility], CR, CHEST 1 VIEW, 06/02/2014, 8:23. FINDINGS: Surgical changes and devices: A right-sided chest port is partially seen, with the tip overlying the superior aspect of the superior vena cava. Lungs and pleura: On this supine examination, no large pneumothorax or large pleural effusions are seen. No focal areas of lung consolidation are seen. Low lung volumes are noted. This causes a crowded appearance to the lung markings and limits evaluation. Mediastinum: Mediastinal contours appear normal. Heart size is normal. Atherosclerotic calcification of the aortic arch is noted. Bones and chest wall: No suspicious bony lesions. Age-appropriate bony degenerative changes are seen. Overlying soft tissues appear unremarkable. IMPRESSION: No bruce acute portable chest abnormality can be seen. Low lung volumes, without an acute pulmonary abnormality seen. The tip of the right-sided chest port can be seen overlying the superior aspect of the superior vena cava. Dictated by: Miller Quintanilla M.D. on 06/07/2022 at 10:06 Approved by: Miller Quintanilla M.D. on 06/07/2022 at 10:07
--- NOTE | 2022-06-07 10:21 | DI.CT.S_ITS ---
PROCEDURE: CT HEAD/BRAIN WO CON INDICATIONS: fall on Xarelto TECHNIQUE: Noncontrast 4.5 mm thick angled axial sections acquired from the foramen magnum to the vertex, with coronal and sagittal reformats. For radiation dose reduction, the following was used: automated exposure control, adjustment of mA and/or kV according to patient size. COMPARISON: [facility], CT, HEAD WITHOUT CONTRAST, 02/18/2015, 15:00. [facility], CT, HEAD WITHOUT CONTRAST, 02/18/2015, 13:55. [facility], CT, CT CERVICAL SPINE WO CON, 06/07/2022, 10:36. [facility], CR, XR CHEST 1V, 06/07/2022, 10:34. [facility], CT, HEAD WITHOUT CONTRAST, 05/30/2017, 12:13. FINDINGS: Image quality: Excellent. CSF spaces: Basal cisterns are patent. No extra-axial fluid collections. The ventricles are symmetric in size and shape. Brain: No intracranial bleeds or masses. There is cerebral volume loss for age, with resultant ventricular and sulcal prominence. There are periventricular and deep white matter chronic small vessel ischemic changes. Areas of remote lacunar infarction are again seen. There is intracranial internal carotid artery atherosclerosis. Skull and face: Calvarial shar holes are seen. Calvarium and visualized facial bones appear intact, without suspicious lesions. Sinuses: Visualized sinuses and mastoids are clear. IMPRESSION: No acute intracranial hemorrhage is seen. No acute intracranial process is seen. Additional findings: Remote left-sided shar holes Dictated by: Miller Quintanilla M.D. on 06/07/2022 at 10:08 Approved by: Miller Quintanilla M.D. on 06/07/2022 at 10:10
--- NOTE | 2022-06-07 10:25 | ED.FALL ---
HPI - Fall General Chief Complaint: Trauma Stated Complaint: Mod Trauma, GLF Time Seen by Provider: 06/07/22 10:20 History of Present Illness HPI Narrative: Patient is an 86-year-old male history of CVA diabetes prostate cancer pulmonary embolism on Xarelto presenting today with a ground level fall. He reports that he was trying to get up and walk when he fell hitting his head. No loss of conscious no nausea vomiting numbness tingling or weakness. He denies any chest pain. He is noted to have right leg shorter than the other but no pelvic pain or hip pain. is at bedside reports that he is extremely weak they just increased his chemo dose for renal cell cancer and prostate cancer. He is followed at [facility]. reports that dosing was increased to daily instead of every other day. also reports that his weakness became quite profound overnight. She says that they were able to get out about little bit yesterday. He is normally able to get up out of bed and do his daily living activities on his own however he currently is unable to get himself out of bed. No fevers or chills no chest pain cough palpitations. Related Data Home Medications Medication Instructions Recorded Confirmed Fiber-Caps (psyllium husk) 2 cap DAILY 07/21/18 06/07/22 Vitamin B-12 1,000 mcg DAILY 07/21/18 06/07/22 Vitamin D3 2,000 unit DAILY 07/21/18 06/07/22 Respironics DreamStation CPAP #1 ea 08/12/18 06/07/22 sitagliptin phosphate 50 mg tablet 50 mg PO DAILY 07/22/21 04/09/22 (Januvia) atorvastatin 40 mg tablet 40 mg PO BEDTIME 10/28/21 04/09/22 finasteride 5 mg tablet 5 mg PO DAILY 10/28/21 04/09/22 glipizide 5 mg tablet, extended tab PO 10/28/21 04/09/22 release 24 hr losartan 50 mg tablet 50 mg PO DAILY 10/28/21 04/09/22 Previous Rx's Medication Instructions Recorded Aircurve Auto Bipap #1 ea 07/05/18 mupirocin 2 % topical ointment 1 applic topical BID #22 grams 05/09/22 cefpodoxime 100 mg tablet 100 mg PO BID #14 tabs 05/11/22 Allergies Allergy/AdvReac Type Severity Reaction Status Date / Time levofloxacin [LEVOFLOXACIN] Allergy Severe SWOLLEN Verified 06/07/22 10:29 TONGUE Review of Systems Review of Systems ROS Unobtainable: All systems reviewed & are unremarkable except as noted in HPI and below Patient History Medical History Anemia 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 CVA (cerebral vascular accident) Diverticulitis DM type 2 (diabetes mellitus, type 2) Facet arthropathy, lumbar Fall Flank pain, chronic History of colon polyps Hyperlipidemia Hypertension Hypokalemia Lower GI bleed Lumbar post-laminectomy syndrome Obstructive sleep apnea of adult Pressure ulcer Rectal bleeding Snoring Social History marital status: household members: spouse lives independently: No caregiver/support person: Yes (Reagan) housing: house Smoking Status: Never smoker alcohol intake: current Smoking Status: Never smoker Substance Use Type: does not use Exam Initial Vital Signs Initial Vital Signs: Vital Signs Temperature 98.2 F 06/07/22 10:13 Pulse Rate 98 H 06/07/22 10:13 Respiratory Rate 10 L 06/07/22 10:13 Blood Pressure 130/60 06/07/22 10:13 Pulse Oximetry 93 06/07/22 10:13 Oxygen Delivery Method 06/07/22 10:13 GENERAL: Alert pleasant 86-year-old and in no acute distress. HEENT: Head atraumatic,EOMI, pupils reactive, face symmetric, moist mucous membranes CARDIOVASCULAR: Regular rate and rhythm without murmurs, rubs or gallops. RESPIRATORY: Breath sounds equal bilaterally, no wheezes rales or rhonchi. ABDOMEN: Soft, nontender. Normoactive bowel sounds all 4 quadrants. No guarding or rebound. EXTREMITIES: Normal range of motion, no clubbing or edema. Neurovascularly intact. Right leg is shorter than the other but no pelvic or hip pain NEUROLOGICAL: Alert and oriented x4. 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 Course Orders Ordered: Acetaminophen (Acetaminophen 325 Mg Tablet) 650 mg PO Q6H PRN PRN Reason: Fever/Mild Pain (1-3) Hydrocodone Bitart/Acetaminophen (Hydrocodone/Acet 5/325 Tablet) 2 tab PO Q4H PRN PRN Reason: Pain, Severe (7-10) Al Hydrox/Mg Hydrox/Simethicone (Mag Hydrox/Alum/Simeth 30 Ml Udc) 30 ml PO Q6HR PRN PRN Reason: Dyspepsia Atorvastatin Calcium (Atorvastatin 20 Mg Tablet) 40 mg PO BEDTIME [facility] Last Admin: 06/07/22 21:55 Dose: 40 mg Documented By: RHEA Bisacodyl (Bisacodyl 10 Mg Supp) 10 mg LA DAILY PRN PRN Reason: Constipation Cyanocobalamin (Cyanocobalamin (Vitamin B-12) 500 Mcg Tablet) 1,000 mcg PO DAILY [facility] Docusate Sodium (Docusate 100 Mg Capsule) 100 mg PO BID [facility] Last Admin: 06/07/22 21:55 Dose: 100 mg Documented By: RHEA Finasteride (Finasteride 5 Mg Tablet) 5 mg PO DAILY [facility] Hydromorphone HCl (Hydromorphone 1 Mg Inj) 1 mg IV Q4H PRN PRN Reason: Pain, Severe (7-10) Sodium Chloride (Normal Saline 0.9%) 1,000 mls @ 125 mls/hr IV CONT [facility] Last Infusion: 06/07/22 16:50 Dose: 0 mls/hr Documented By: Infusion: 06/07/22 16:01 Dose: 999 mls/hr Documented By: Admin: 06/07/22 14:41 Dose: 125 mls/hr Documented By: NANNETTE Ceftriaxone Sodium 1,000 mg/ (Sodium Chloride) 100 mls @ 200 mls/hr IV Q24H [facility] Losartan Potassium (Losartan 50 Mg Tablet) 50 mg PO DAILY [facility] Mupirocin (Mupirocin 22 Gm Oint) 1 applic TOP BID [facility] Last Admin: 06/07/22 21:55 Dose: Not Given Documented By: RHEA Naloxone HCl (Naloxone 0.4 Mg/Ml Vial) 0.2 mg IV Q2MIN PRN PRN Reason: Opiate Reversal Ondansetron HCl (Ondansetron 4 Mg Odt) 4 mg PO Q8HR PRN PRN Reason: Nausea And Vomiting Oxycodone HCl (Oxycodone Ir 5 Mg Tablet) 5 mg PO Q3H PRN PRN Reason: Pain, Moderate (4-6) Prednisone (Prednisone 20 Mg Tablet) 20 mg PO DAILY [facility] Rivaroxaban (Rivaroxaban 10 Mg Tablet) 20 mg PO BIDWM [facility] Last Admin: 06/07/22 17:59 Dose: Not Given Documented By: COLTK Sitagliptin Phosphate (Sitagliptin 50 Mg Tablet) 100 mg PO DAILY [facility] Vitamin D (Cholecalciferol (Vitamin D3) 1,000 Unit Tablet) 2,000 unit PO DAILY [facility] Discontinued Medications Ceftriaxone Sodium 1,000 mg/ (Sodium Chloride) 100 mls @ 200 mls/hr IV NOW ONE Stop: 06/07/22 15:15 Last Infusion: 06/07/22 16:19 Dose: 0 mls/hr Documented By: Admin: 06/07/22 15:36 Dose: 200 mls/hr Documented By: TY Sodium Chloride (Normal Saline 0.9%) 1,000 mls @ 1,000 mls/hr IV BOLUS ONE Stop: 06/07/22 16:46 Last Admin: 06/07/22 17:13 Dose: Not Given Documented By: SHAILESH Vital Signs Vital signs: Vital Signs - 8 hr 06/07/22 10:13 06/07/22 10:23 06/07/22 10:43 Temperature 98.2 F Pulse Rate 98 H 92 H 92 H Respiratory Rate 10 L 12 Blood Pressure 130/60 Pulse Oximetry 93 93 92 Oxygen Delivery Method Room Air Room Air 06/07/22 10:45 06/07/22 11:00 06/07/22 11:15 Temperature Pulse Rate 90 88 87 Respiratory Rate 23 23 16 Blood Pressure Pulse Oximetry 93 93 94 Oxygen Delivery Method 06/07/22 11:30 06/07/22 11:45 06/07/22 12:07 Temperature Pulse Rate 87 83 104 H Respiratory Rate 17 15 27 H Blood Pressure Pulse Oximetry 94 96 96 Oxygen Delivery Method Room Air 06/07/22 12:15 06/07/22 12:30 06/07/22 12:45 Temperature Pulse Rate 85 79 81 Respiratory Rate 22 29 H 17 Blood Pressure Pulse Oximetry 98 98 97 Oxygen Delivery Method Room Air 06/07/22 13:00 06/07/22 13:21 06/07/22 13:30 Temperature Pulse Rate 76 82 81 Respiratory Rate 15 18 23 Blood Pressure Pulse Oximetry 97 89 L 98 Oxygen Delivery Method MDM - Fall Lab Data 06/07/22 10:22 06/07/22 10:55 Labs: Lab Results 06/07/22 06/07/22 06/07/22 Range/Units 10:22 10:22 10:55 WBC 10.2 (4.5-11.0) X10^3/uL RBC 4.21 L (4.5-5.9) X10^6/uL Hgb 12.8 L (13.5-17.5) g/dL Hct 38.7 L (41-53) % MCV 92.0 (80-100) fL MCH 30.4 (26-34) PG MCHC 33.1 (30-36) % RDW 16.6 H (11.6-14.8) % Plt Count 156 (150-400) X10^3/uL Neut % (Auto) 86.2 H (50-75) % Lymph % (Auto) 8.6 L (25-40) % [place] % (Auto) 4.6 (3-14) % Eos % (Auto) 0.3 L (2-4) % Baso % (Auto) 0.3 (0-2) % Neut # (Auto) 8800 H (1111-0424) /uL Lymph # (Auto) 900 L (0078-3288) /uL [place] # (Auto) 500 (0-900) /uL Eos # (Auto) 0 (0-450) /uL Baso # (Auto) 0 (0-100) /uL Sodium 133 L (137-145) mmol/L Potassium 3.6 (3.4-5.1) mmol/L Chloride 103 (98-107) mmol/L Carbon Dioxide 24 (22-32) mmol/L BUN 25 H (9-20) mg/dL Creatinine 0.90 (0.66-1.25) mg/dL Estimated GFR > 60 (>60) mL/min BUN/Creatinine Ratio 27.8 H (6-22) Glucose 234 H (80-110) mg/dL Lactate 3.7 H (0.7-2.1) mmol/L Calcium 9.1 (8.4-10.2) mg/dL Total Bilirubin 1.1 (0.2-1.3) mg/dL AST 23 (17-59) IU/L ALT 30 (<50) IU/L Alkaline Phosphatase 68 (38-126) U/L Total Creatine Kinase 35 L (55-170) U/L CK-MB (CK-2) TNP CK-MB (CK-2) Rel Index TNP Troponin I 0.032 (0.01-0.034) ng/mL Total Protein 5.6 L (6.3-8.2) g/dL Albumin 3.1 L (3.5-5.0) g/dL Globulin 2.5 (1.7-4.1) g/dL Albumin/Globulin Ratio 1.2 (1.0-2.8) Lipase 94 (23-300) U/L Procalcitonin (<0.5) ng/mL Urine RBC (0-5/HPF) Urine WBC (0-5/HPF) Urine Bacteria (None) Ur Culture Indicated? SARS-CoV-2 (PCR) (Negative) Influenza A (RT-PCR) (NEGATIVE) Influenza B (RT-PCR) (NEGATIVE) RSV (PCR) (Negative) 06/07/22 06/07/22 06/07/22 Range/Units 10:55 13:28 14:45 WBC (4.5-11.0) X10^3/uL RBC (4.5-5.9) X10^6/uL Hgb (13.5-17.5) g/dL Hct (41-53) % MCV (80-100) fL MCH (26-34) PG MCHC (30-36) % RDW (11.6-14.8) % Plt Count (150-400) X10^3/uL Neut % (Auto) (50-75) % Lymph % (Auto) (25-40) % [place] % (Auto) (3-14) % Eos % (Auto) (2-4) % Baso % (Auto) (0-2) % Neut # (Auto) (3705-5333) /uL Lymph # (Auto) (5231-7411) /uL [place] # (Auto) (0-900) /uL Eos # (Auto) (0-450) /uL Baso # (Auto) (0-100) /uL Sodium (137-145) mmol/L Potassium (3.4-5.1) mmol/L Chloride (98-107) mmol/L Carbon Dioxide (22-32) mmol/L BUN (9-20) mg/dL Creatinine (0.66-1.25) mg/dL Estimated GFR (>60) mL/min BUN/Creatinine Ratio (6-22) Glucose (80-110) mg/dL Lactate (0.7-2.1) mmol/L Calcium (8.4-10.2) mg/dL Total Bilirubin (0.2-1.3) mg/dL AST (17-59) IU/L ALT (<50) IU/L Alkaline Phosphatase (38-126) U/L Total Creatine Kinase (55-170) U/L CK-MB (CK-2) CK-MB (CK-2) Rel Index Troponin I (0.01-0.034) ng/mL Total Protein (6.3-8.2) g/dL Albumin (3.5-5.0) g/dL Globulin (1.7-4.1) g/dL Albumin/Globulin Ratio (1.0-2.8) Lipase (23-300) U/L Procalcitonin 0.19 (<0.5) ng/mL Urine RBC 1-5/hpf (0-5/HPF) Urine WBC 5-10/hpf H (0-5/HPF) Urine Bacteria Many (>30) H (None) Ur Culture Indicated? Specimen cultured SARS-CoV-2 (PCR) Negative (Negative) Influenza A (RT-PCR) Flu a negative (NEGATIVE) Influenza B (RT-PCR) Flu b negative (NEGATIVE) RSV (PCR) Negative (Negative) Urine Dip Bedside Urine Glucose 100 mg/dl Bedside Urine Ketone +/- 5 Urine Specific [place] 1.02 Bedside Urine Occult Blood +++ Bedside Urine pH 6.0 Bedside Urine Protein + 30 Bedside Urine Urobilinogen - Negative Bedside Urine Nitrite + Positive Bedside Urine Leukocytes + [address] - cervical spine: Radiologist's Impression: CT Scan Report Signed Patient: Flako Dodson MR#: [id number] : 1935 Acct:[id number] Age/Sex: 86 / M Date of Service: 06/07/22 Loc: ED Accession Number: [id number] ?? Procedure: CT cervical spine wo con Ordering Provider: Ana Amaro D.O. PROCEDURE:? CT CERVICAL SPINE WO CON ? INDICATIONS:? fall ? TECHNIQUE:? Noncontrast 3 mm thick sections acquired from the skull base to the T4 level.? Sagittal and coronal reformats were then constructed.? For radiation dose reduction, the following was used:? automated exposure control, adjustment of mA and/or kV according to patient size.? ? COMPARISON:? [facility], CR, XR CHEST 1V, 06/07/2022, 10:34.? [facility], CT, CT HEAD/BRAIN WO CON, 06/07/2022, 10:36.? [facility], MR, C-SPINE W&WO CONTRAST, 10/26/2014, 11:34. ? FINDINGS:? Image quality:? Excellent.? ? Bones:? No fractures or dislocations.? Visualized superior ribs are intact.? ? Anterior fixation hardware can be seen at C3-C4, with a disc spacer.? Posterior fixation hardware can be seen on both sides at C4-C5.? There is mild lucency seen adjacent to the left at the C5 level, as seen on series 5, image 58.? The hardware otherwise appears intact. ? There is moderate disc space narrowing at C5-C6 and moderate to severe disc space narrowing at C6-C7.? Several levels of bridging anterior osteophytes can be seen.? There is fusion the left-sided facets at C3-C4. ? Mild levoconvex scoliotic curvature is noted.? ? Soft tissues:? Prevertebral soft tissues are normal in thickness.? No paravertebral hematomas.? No apical pneumothoraces.? Relatively prominent atherosclerotic calcification can be seen. ? There is partial visualization of a right-sided chest port. ? ? IMPRESSION:? Negative for acute fracture.? ? Postoperative hardware is seen anteriorly and posteriorly.? There is mild lucency seen adjacent to the left C5 screw, which is consistent with early loosening change. ? ? ? Dictated by: Miller Quintanilla M.D. on 06/07/2022 at 10:10 ? ? CT scan - head: Radiologist's Impression: Signed Patient: Flako Dodson MR#: [id number] : 1935 Acct:[id number] Age/Sex: 86 / M Date of Service: 06/07/22 Loc: ED Accession Number: [id number] ?? Procedure: CT head/brain wo con Ordering Provider: Ana Amaro D.O. PROCEDURE:? CT HEAD/BRAIN WO CON ? INDICATIONS:? fall on Xarelto ? TECHNIQUE:? Noncontrast 4.5 mm thick angled axial sections acquired from the foramen magnum to the vertex, with coronal and sagittal reformats.? For radiation dose reduction, the following was used:? automated exposure control, adjustment of mA and/or kV according to patient size.? ? COMPARISON:? [facility], CT, HEAD WITHOUT CONTRAST, 02/18/2015, 15:00.? [facility], CT, HEAD WITHOUT CONTRAST, 02/18/2015, 13:55.? [facility], CT, CT CERVICAL SPINE WO CON, 06/07/2022, 10:36.? [facility], CR, XR CHEST 1V, 06/07/2022, 10:34.? [facility], CT, HEAD WITHOUT CONTRAST, 05/30/2017, 12:13. ? FINDINGS:? Image quality:? Excellent.? ? CSF spaces:? Basal cisterns are patent.? No extra-axial fluid collections.? The ventricles are symmetric in size and shape.? ? Brain:? No intracranial bleeds or masses.? There is cerebral volume loss for age, with resultant ventricular and sulcal prominence.? There are periventricular and deep white matter chronic small vessel ischemic changes.? Areas of remote lacunar infarction are again seen.? There is intracranial internal carotid artery atherosclerosis.? ? Skull and face:? Calvarial shar holes are seen.? Calvarium and visualized facial bones appear intact, without suspicious lesions.? ? Sinuses:? Visualized sinuses and mastoids are clear.? IMPRESSION:? No acute intracranial hemorrhage is seen.? ? No acute intracranial process is seen.? Additional findings:? Remote left-sided shar holes ? ? Dictated by: Miller Quintanilla M.D. on 06/07/2022 at 10:08 ? ? Extremity x-ray #1: Radiologist's Impression: XRay Report Signed Patient: Flako Dodson MR#: [id number] : 1935 Acct:[id number] Age/Sex: 86 / M Date of Service: 06/07/22 Loc: ED Accession Number: [id number] ?? Procedure: XR pelvis 1-2V Ordering Provider: Botnick,Ana D.O. PROCEDURE:? XR PELVIS 1-2V ? INDICATIONS:? right leg short ? TECHNIQUE:? 1 view(s) of the pelvis acquired.? ? COMPARISON:? [facility], CT, CT ABDOMEN PELVIS W CON, 10/22/2021, 10:27.? [facility], CT, CT CERVICAL SPINE WO CON, 06/07/2022, 10:36.? [facility], CT, CT HEAD/BRAIN WO CON, 06/07/2022, 10:36.? [facility], CR, XR CHEST 1V, 06/07/2022, 10:34. ? FINDINGS:? ? Bones:? There is a potential nondisplaced fracture of the right femoral neck. ? No additional focal bony abnormalities can be seen. ? Degenerative changes can be seen of the hips, right worse than left. Age-appropriate lower lumbar spine degenerative changes are noted. ? Soft tissues:? Visualized bowel gas pattern is normal.? No suspicious soft tissue calcifications.? Atherosclerotic calcification is noted.? ? ? IMPRESSION:? ? There is a potential nondisplaced fracture of the right femoral neck.? Please correlate with focal tenderness.? If clinically appropriate, please consider a follow-up CT for further evaluation. ? ? Dictated by: Miller Quintanilla M.D. on 06/07/2022 at 11:44 ? ? Approved by: Miller Quintanilla M.D. on 06/07/2022 at 11:46 ? CT pelvis: Radiologist's Impression: Signed Patient: Flako Dodson MR#: [id number] : 1935 Acct:[id number] Age/Sex: 86 / M Date of Service: 06/07/22 Loc: ED Accession Number: [id number] ?? Procedure: CT pelvis wo con Ordering Provider: Ana Amaro D.O. PROCEDURE:? CT PEL WO CON ? INDICATIONS:? right femoral neck fracture? ? TECHNIQUE:? Noncontrast 3 mm axial sections acquired through the bony pelvis, with coronal and sagittal reformatting.? ? COMPARISON:? [facility], CR, XR PELVIS 1-2V, 06/07/2022, 12:24.? [facility], CT, CT ABDOMEN PELVIS W CON, 10/22/2021, 10:27. ? FINDINGS:? Image quality:? Excellent.? ? Bones:? In this patient with this given history, scrutiny is given to the right femoral neck.? No fractures are just wait a few minutes of aerated at seen.? Degenerative changes are seen of both hips, as before. ? No fractures of the bones of the pelvis can be seen. ? Age-appropriate lower lumbar spine degenerative changes are noted.? Lower lumbar spine postoperative change can be seen, with removal of portions of the posterior elements. ? Soft tissues:? No dilated loops of small bowel are seen.? Distal colonic diverticulosis is seen, without findings of active diverticulitis.? There is a fat containing periumbilical hernia. Atherosclerotic calcification is noted.? No bladder wall thickening can be seen.? Bilateral fat containing inguinal hernias are seen. ? Irregular, enlarged left inguinal lymph nodes are seen with surrounding inflammatory change.? The largest lymph node measures up to 1.8 cm. ? ? IMPRESSION:? Negative for right femoral neck fracture. ? No fractures are seen elsewhere. ? Abnormal left inguinal lymph nodes are seen, with surrounding inflammatory change.? Please correlate with known patient history.? If clinically appropriate, please consider ultrasound-guided percutaneous biopsy.? Additional findings:? Lower lumbar spine postoperative change Fat containing periumbilical hernia Diverticulosis, without active diverticulitis Fat containing bilateral inguinal hernias. ? Dictated by: Miller Quintanilla M.D. on 06/07/2022 at 12:34 ? ? Approved by: Miller Quintanilla M.D. on 06/07/2022 at 12:38 ? ECG Data Interpretation: Sinus rhythm rate 92 LA interval 1-62 QRS 162 right bundle-branch block noted no ST changes or ischemia MDM Narrative Medical decision making narrative: Patient 86-year-old male with renal cell cancer prostate cancer with increased dose of daily chemotherapy he presents increasing weakness. reports that they were out in about yesterday and he had sudden onset worsening weakness today. He fell hitting his head. Imaging is negative. There is questionable right femoral neck fracture however CT confirms that there is no fracture. He is no leukocytosis but there is a mild left shift. Lactate is elevated at 3.7 which improved with fluids to 1.4. His urine is positive for a UTI. This is likely the cause of his profound weakness. He received 1 dose of Rocephin. I did talk with oncology Dr. Ruelas at [facility] who recommended decreasing his chemotherapy back to every other day. He is profoundly weak unable to stand on his own. Likely combination of increased chemotherapy in UTI. Dr. Molina in ED to see and evaluate patient and kindly accepts patient. Discharge Plan Departure Patient Disposition: Admitted As Inpatient Clinical Impression: Acute UTI Admit Date/Time: 06/07/22 15:47 Admit Provider: Cosme Molina
[2022-06-07 10:39] LABS: Add Manual Diff / Slide Review NO; Basophils Absolute Auto 0 /uL (0-100); Basophils Percent Auto 0.3 % (0-2); Eosinophils Absolute Auto 0 /uL (0-450); Eosinophils Percent Auto 0.3 % (2-4); Hematocrit 38.7 % (41-53); Hemoglobin 12.8 g/dL (13.5-17.5); Lymphocytes Absolute Auto 900 /uL (1100-4500); Lymphocytes Percent Auto 8.6 % (25-40); Mean Corpuscular HGB Conc 33.1 % (30-36); Mean Corpuscular Hemoglobin 30.4 PG (26-34); Monocytes Absolute Auto 500 /uL (0-900); Monocytes Percent Auto 4.6 % (3-14); Neutrophils Absolute Auto 8800 /uL (1500-7000); Neutrophils Percent Auto 86.2 % (50-75); Platelet Count 156 X10^3/uL (150-400); Red Blood Cell Count 4.21 X10^6/uL (4.5-5.9); Red Cell Distribution Width 16.6 % (11.6-14.8); White Blood Cell Count 10.2 X10^3/uL (4.5-11.0)
[2022-06-07 11:15] LABS: Alanine Aminotransferase 30 IU/L (<50); Albumin 3.1 g/dL (3.5-5.0); Albumin Globulin Ratio 1.2 (1.0-2.8); Alkaline Phosphatase 68 U/L (38-126); Aspartate Aminotransferase 23 IU/L (17-59); BUN Creatinine Ratio 27.8 (6-22); Bilirubin Total 1.1 mg/dL (0.2-1.3); Blood Urea Nitrogen 25 mg/dL (9-20); Calcium 9.1 mg/dL (8.4-10.2); Carbon Dioxide 24 mmol/L (22-32); Chloride 103 mmol/L (98-107); Creatine Kinase 35 U/L (55-170); Estimated Glomerular Filt Rate > 60 mL/min (>60); Globulin 2.5 g/dL (1.7-4.1); Glucose 234 mg/dL (80-110); HEMOLYSIS < 15 (0-50); Lipase 94 U/L (23-300); Potassium 3.6 mmol/L (3.4-5.1); Sodium 133 mmol/L (137-145); Total Protein 5.6 g/dL (6.3-8.2)
[2022-06-07 11:26] LABS: Troponin I 0.032 ng/mL (0.01-0.034)
--- NOTE | 2022-06-07 12:07 | DI.RAD.S_ITS ---
PROCEDURE: XR PELVIS 1-2V INDICATIONS: right leg short TECHNIQUE: 1 view(s) of the pelvis acquired. COMPARISON: [facility], CT, CT ABDOMEN PELVIS W CON, 10/22/2021, 10:27. [facility], CT, CT CERVICAL SPINE WO CON, 06/07/2022, 10:36. [facility], CT, CT HEAD/BRAIN WO CON, 06/07/2022, 10:36. [facility], CR, XR CHEST 1V, 06/07/2022, 10:34. FINDINGS: Bones: There is a potential nondisplaced fracture of the right femoral neck. No additional focal bony abnormalities can be seen. Degenerative changes can be seen of the hips, right worse than left. Age-appropriate lower lumbar spine degenerative changes are noted. Soft tissues: Visualized bowel gas pattern is normal. No suspicious soft tissue calcifications. Atherosclerotic calcification is noted. IMPRESSION: There is a potential nondisplaced fracture of the right femoral neck. Please correlate with focal tenderness. If clinically appropriate, please consider a follow-up CT for further evaluation. Dictated by: Miller Quintanilla M.D. on 06/07/2022 at 11:44 Approved by: Miller Quintanilla M.D. on 06/07/2022 at 11:46
--- NOTE | 2022-06-07 12:13 | PC.NURSE ---
Had BM, could not collect urine sample because it was mixed with stool. Will try again.
--- NOTE | 2022-06-07 13:00 | DI.CT.S_ITS ---
PROCEDURE: CT PEL WO CON INDICATIONS: right femoral neck fracture? TECHNIQUE: Noncontrast 3 mm axial sections acquired through the bony pelvis, with coronal and sagittal reformatting. COMPARISON: [facility], CR, XR PELVIS 1-2V, 06/07/2022, 12:24. [facility], CT, CT ABDOMEN PELVIS W CON, 10/22/2021, 10:27. FINDINGS: Image quality: Excellent. Bones: In this patient with this given history, scrutiny is given to the right femoral neck. No fractures are just wait a few minutes of aerated at seen. Degenerative changes are seen of both hips, as before. No fractures of the bones of the pelvis can be seen. Age-appropriate lower lumbar spine degenerative changes are noted. Lower lumbar spine postoperative change can be seen, with removal of portions of the posterior elements. Soft tissues: No dilated loops of small bowel are seen. Distal colonic diverticulosis is seen, without findings of active diverticulitis. There is a fat containing periumbilical hernia. Atherosclerotic calcification is noted. No bladder wall thickening can be seen. Bilateral fat containing inguinal hernias are seen. Irregular, enlarged left inguinal lymph nodes are seen with surrounding inflammatory change. The largest lymph node measures up to 1.8 cm. IMPRESSION: Negative for right femoral neck fracture. No fractures are seen elsewhere. Abnormal left inguinal lymph nodes are seen, with surrounding inflammatory change. Please correlate with known patient history. If clinically appropriate, please consider ultrasound-guided percutaneous biopsy. Additional findings: Lower lumbar spine postoperative change Fat containing periumbilical hernia Diverticulosis, without active diverticulitis Fat containing bilateral inguinal hernias. Dictated by: Miller Quintanilla M.D. on 06/07/2022 at 12:34 Approved by: Miller Quintanilla M.D. on 06/07/2022 at 12:38
--- NOTE | 2022-06-07 13:13 | PC.NURSE ---
Attempted ambulation w/ tech ([facility]). Pt unable to take any steps. Full person assist to stand. verbalized hesitancy in taking him home.
[2022-06-07 14:17] LABS: Influenza A - CEPHEID Flu A NEGATIVE (NEGATIVE); Influenza B - CEPHEID Flu B NEGATIVE (NEGATIVE); Respiratory Syncytial Virus Negative (Negative)
[2022-06-07 14:18] LABS: Procalcitonin 0.19 ng/mL (<0.5)
[2022-06-07] MEDS: SODIUM CHLORIDE 0.9% 1,000 ML 125 ML IV (14:41)
[2022-06-07 14:44] LABS: COVID-19 CEPHEID 4-PLEX PCR Negative (Negative)
[2022-06-07 15:07] LABS: Bacteria Urine Many (>30); Culture Indicated Urine Specimen Cultured; RBC Urine 1-5/HPF (0-5/HPF); WBC Urine 5-10/HPF (0-5/HPF)
[2022-06-07 15:33] LABS: Lactate (Lactic Acid) 3.7 mmol/L (0.7-2.1)
[2022-06-07] MEDS: cefTRIAXone 1,000 MG in SODIUM CHLORIDE 0.9% 100 ML 200 MG IV (15:36)
--- NOTE | 2022-06-07 16:36 | P.HP_ITS ---
History of Present Illness History of Present Illness Date Patient Seen: 06/07/22 Time Patient Seen: 16:36 Date of Onset of Symptoms: 06/07/22 Chief complaint: Mod Trauma, GLF Narrative: PT presents to ED s/p GLF at home after becoming progressively weak. He is active right renal and prostate cancer patient taking Cabozantinib daily for l ast week at [facility] where he had been taking it every other day previously. He also has well controlled diabetes hypertension hyperlipidemia and recent diagnosis of PE for which he is taking Xarelto. He reports nothing hurts but he is very weak. Has been doing a steroid taper also, almost done, just on prednisone 10mg for last week. He has a sacral pressure ulcer as well as wounds on his L 2nd and 3rd toes which are all under dry dressing today. Patient History Medical History Anemia 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 CVA (cerebral vascular accident) Diverticulitis DM type 2 (diabetes mellitus, type 2) Facet arthropathy, lumbar Fall Flank pain, chronic History of colon polyps Hyperlipidemia Hypertension Hypokalemia Lower GI bleed Lumbar post-laminectomy syndrome Obstructive sleep apnea of adult Pressure ulcer Rectal bleeding Snoring Family & Social History Social History: household members spouse lives independently No caregiver/support person Yes: Reagan Safety & Behavioral: Feels Safe in Current Yes Environment Been Physically Hurt or No Threatened By a Person Tobacco & Substance use: Smoking Status Never smoker alcohol intake frequency other Substance Use Type does not use Meds Home Medications and Allergies Home Medications Medication Instructions Recorded Confirmed Type Aircurve Auto Bipap #1 ea 07/05/18 04/09/22 Rx Fiber-Caps (psyllium husk) 2 cap DAILY 07/21/18 04/09/22 History Vitamin B-12 1,000 mcg DAILY 07/21/18 04/09/22 History Vitamin D3 2,000 unit DAILY 07/21/18 04/09/22 History Respironics DreamStation CPAP #1 ea 08/12/18 04/09/22 History sitagliptin phosphate 50 mg tablet 50 mg PO DAILY 07/22/21 04/09/22 History (Januvia) atorvastatin 40 mg tablet 40 mg PO BEDTIME 10/28/21 04/09/22 History finasteride 5 mg tablet 5 mg PO DAILY 10/28/21 04/09/22 History glipizide 5 mg tablet, extended tab PO 10/28/21 04/09/22 History release 24 hr losartan 50 mg tablet 50 mg PO DAILY 10/28/21 04/09/22 History mupirocin 2 % topical ointment 1 applic topical BID #22 grams 05/09/22 Rx cefpodoxime 100 mg tablet 100 mg PO BID #14 tabs 05/11/22 Rx Allergies Allergy/AdvReac Type Severity Reaction Status Date / Time levofloxacin [LEVOFLOXACIN] Allergy Severe SWOLLEN Verified 06/07/22 10:29 TONGUE Review of Systems Review of Systems Narrative: all systems reviewed and negative except as otherwise documented in HPI Exam Vital Signs (past 8 hours): - 06/07/22 10:13 06/07/22 10:23 06/07/22 10:43 Temperature 98.2 F Pulse Rate 98 H 92 H 92 H Respiratory Rate 10 L 12 Blood Pressure 130/60 Pulse Oximetry 93 93 92 Oxygen Delivery Method Room Air Room Air 06/07/22 10:45 06/07/22 11:00 06/07/22 11:15 Temperature Pulse Rate 90 88 87 Respiratory Rate 23 23 16 Blood Pressure Pulse Oximetry 93 93 94 Oxygen Delivery Method 06/07/22 11:30 06/07/22 11:45 06/07/22 12:07 Temperature Pulse Rate 87 83 104 H Respiratory Rate 17 15 27 H Blood Pressure Pulse Oximetry 94 96 96 Oxygen Delivery Method Room Air 06/07/22 12:15 06/07/22 12:30 06/07/22 12:45 Temperature Pulse Rate 85 79 81 Respiratory Rate 22 29 H 17 Blood Pressure Pulse Oximetry 98 98 97 Oxygen Delivery Method Room Air 06/07/22 13:00 06/07/22 13:21 06/07/22 13:30 Temperature Pulse Rate 76 82 81 Respiratory Rate 15 18 23 Blood Pressure Pulse Oximetry 97 89 L 98 Oxygen Delivery Method 06/07/22 13:45 06/07/22 14:00 06/07/22 14:15 Temperature Pulse Rate 77 76 75 Respiratory Rate 16 18 19 Blood Pressure Pulse Oximetry 98 96 97 Oxygen Delivery Method 06/07/22 14:30 06/07/22 14:42 06/07/22 14:42 Temperature Pulse Rate 74 79 Respiratory Rate 13 22 Blood Pressure 133/65 Pulse Oximetry 97 96 Oxygen Delivery Method Room Air 06/07/22 14:45 06/07/22 14:45 06/07/22 15:00 Temperature Pulse Rate 82 Respiratory Rate 21 Blood Pressure 144/70 H 126/62 Pulse Oximetry Oxygen Delivery Method 06/07/22 15:00 06/07/22 15:15 06/07/22 15:15 Temperature Pulse Rate 79 77 Respiratory Rate 20 17 Blood Pressure 124/60 Pulse Oximetry 99 99 Oxygen Delivery Method 06/07/22 15:30 06/07/22 15:30 06/07/22 15:45 Temperature Pulse Rate 75 Respiratory Rate 16 Blood Pressure 125/58 L 135/65 Pulse Oximetry 98 Oxygen Delivery Method 06/07/22 15:45 06/07/22 16:00 06/07/22 16:00 Temperature Pulse Rate 78 77 Respiratory Rate 19 19 Blood Pressure 130/69 Pulse Oximetry 99 98 Oxygen Delivery Method 06/07/22 16:15 Temperature Pulse Rate 79 Respiratory Rate 23 Blood Pressure Pulse Oximetry 97 Oxygen Delivery Method Room Air Oxygen Delivery Method Room Air Narrative Exam Narrative: cheerful alert elder laying on gurney with at bedside Const Nutritional Appearance: well nourished [facility] Head: normocephalic Eyes General: appearance normal, both eyes and all related structures Cardio Other: regular rate and rhythm, S1/S2 GI Other: soft nontender nondistended Skin Other: sacral pressure ulcer wounds on LLE 2nd and 3rd toes some bruising on L hip Neuro General: patient alert, patient awake, patient oriented x3 and moves all extremities Other: too weak to stand Extrem General: full ROM, No edema and other (L ankle with beefy skin early vascular dermatitis looks like ok distal puls) Psych Speech and Movement: speech and movement normal Objective Labs 06/07/22 10:22 06/07/22 10:55 Labs: Laboratory Results - last 24 hr 06/07/22 06/07/22 06/07/22 10:22 10:22 10:55 WBC 10.2 RBC 4.21 L Hgb 12.8 L Hct 38.7 L MCV 92.0 MCH 30.4 MCHC 33.1 RDW 16.6 H Plt Count 156 Neut % (Auto) 86.2 H Lymph % (Auto) 8.6 L [place] % (Auto) 4.6 Eos % (Auto) 0.3 L Baso % (Auto) 0.3 Neut # (Auto) 8800 H Lymph # (Auto) 900 L [place] # (Auto) 500 Eos # (Auto) 0 Baso # (Auto) 0 Sodium 133 L Potassium 3.6 Chloride 103 Carbon Dioxide 24 BUN 25 H Creatinine 0.90 Estimated GFR > 60 BUN/Creatinine Ratio 27.8 H Glucose 234 H Lactate 3.7 H Calcium 9.1 Total Bilirubin 1.1 AST 23 ALT 30 Alkaline Phosphatase 68 Total Creatine Kinase 35 L CK-MB (CK-2) TNP CK-MB (CK-2) Rel Index TNP Troponin I 0.032 Total Protein 5.6 L Albumin 3.1 L Globulin 2.5 Albumin/Globulin Ratio 1.2 Lipase 94 Procalcitonin Urine RBC Urine WBC Urine Bacteria Ur Culture Indicated? SARS-CoV-2 (PCR) Influenza A (RT-PCR) Influenza B (RT-PCR) RSV (PCR) 06/07/22 06/07/22 06/07/22 10:55 13:28 14:45 WBC RBC Hgb Hct MCV MCH MCHC RDW Plt Count Neut % (Auto) Lymph % (Auto) [place] % (Auto) Eos % (Auto) Baso % (Auto) Neut # (Auto) Lymph # (Auto) [place] # (Auto) Eos # (Auto) Baso # (Auto) Sodium Potassium Chloride Carbon Dioxide BUN Creatinine Estimated GFR BUN/Creatinine Ratio Glucose Lactate Calcium Total Bilirubin AST ALT Alkaline Phosphatase Total Creatine Kinase CK-MB (CK-2) CK-MB (CK-2) Rel Index Troponin I Total Protein Albumin Globulin Albumin/Globulin Ratio Lipase Procalcitonin 0.19 Urine RBC 1-5/hpf Urine WBC 5-10/hpf H Urine Bacteria Many (>30) H Ur Culture Indicated? Specimen cultured SARS-CoV-2 (PCR) Negative Influenza A (RT-PCR) Flu a negative Influenza B (RT-PCR) Flu b negative RSV (PCR) Negative Assessment & Plan Assessment & Plan narrative: #UTI #apparent sepsis given neutrophilia, lactic acidemia, weakness, etc iv rocephin q24 with fluids #prostate cancer #renal cell carcinoma increasing steroids back to prednisone 20mg while sick hold cabozantinib for now #sacral pressure wound #diabetic ulcer, LLE 2nd and 3rd digit wounds stable, present on admission, wound care consulted while inpatient #NIDDM diabetic diet continue januvia with fingersticks and SSI #HTN stable continue losartan 50 #HLD stable continue statin #pulmonary embolism stable on RA, continue Xarelto 20 bid Dispo: Admit obs Code: DNR MDM: Reagan [phone] diet: diabetic DVT ppx: Xarelto Time Spent With Patient Critical Care time: I spent a total of [] minutes of critical care time on this patient's care to day; this time is exclusive of procedural time.
[2022-06-07 16:45] LABS: Lactate (Lactic Acid) 1.4 mmol/L (0.7-2.1)
[2022-06-07 17:24] LABS: Reflexed Lactate in 2 Hours Y
--- NOTE | 2022-06-07 17:59 | PC.NURSE ---
pt states only takes 10mg xeralto everyother day now, new order from
[2022-06-07] MEDS: ATORVASTATIN 20 MG TABLET 40 MG PO (21:55)
[2022-06-07] MEDS: DOCUSATE 100 MG CAPSULE PO (21:55)
[2022-06-08 00:02] VITALS: BP 118/71; PULSE 80; RESP 21; TEMP 37.5; O2SAT 93
[2022-06-08 04:00] VITALS: BP 127/67; PULSE 80; RESP 18; TEMP 37.3; O2SAT 93
[2022-06-08 07:20] LABS: Add Manual Diff / Slide Review NO; Basophils Absolute Auto 0 /uL (0-100); Basophils Percent Auto 0.4 % (0-2); Eosinophils Absolute Auto 100 /uL (0-450); Eosinophils Percent Auto 1.7 % (2-4); Hematocrit 35.4 % (41-53); Hemoglobin 11.7 g/dL (13.5-17.5); Lymphocytes Absolute Auto 900 /uL (1100-4500); Lymphocytes Percent Auto 11.6 % (25-40); Mean Corpuscular Hemoglobin 30.3 PG (26-34); Mean Corpuscular Volume 91.8 fL (80-100); Monocytes Absolute Auto 600 /uL (0-900); Monocytes Percent Auto 8.2 % (3-14); Neutrophils Absolute Auto 5800 /uL (1500-7000); Neutrophils Percent Auto 78.1 % (50-75); Platelet Count 144 X10^3/uL (150-400); Red Blood Cell Count 3.86 X10^6/uL (4.5-5.9); Red Cell Distribution Width 16.4 % (11.6-14.8); White Blood Cell Count 7.4 X10^3/uL (4.5-11.0)
[2022-06-08 07:30] LABS: Alanine Aminotransferase 28 IU/L (<50); Albumin 2.7 g/dL (3.5-5.0); Alkaline Phosphatase 65 U/L (38-126); Aspartate Aminotransferase 23 IU/L (17-59); BUN Creatinine Ratio 25.3 (6-22); Bilirubin Total 0.7 mg/dL (0.2-1.3); Blood Urea Nitrogen 19 mg/dL (9-20); Calcium 8.6 mg/dL (8.4-10.2); Carbon Dioxide 26 mmol/L (22-32); Chloride 106 mmol/L (98-107); Estimated Glomerular Filt Rate > 60 mL/min (>60); Globulin 2.7 g/dL (1.7-4.1); Glucose 161 mg/dL (80-110); HEMOLYSIS < 15 (0-50); Potassium 3.7 mmol/L (3.4-5.1); Sodium 135 mmol/L (137-145); Total Protein 5.4 g/dL (6.3-8.2)
[2022-06-08 08:00] VITALS: BP 117/66; PULSE 69; RESP 16; TEMP 35.9; O2SAT 95
--- NOTE | 2022-06-08 08:42 | CM.DANOTE ---
Addendum entered by Shara Cooper R.N. 06/08/22 15:39: Spoke to Brendan at [facility], he is updated that patient is here. He mentioned that his spouse was looking into residential care with residential Life Insurance policy. Went ahead and completed PASSR in case there is a chance that [facility] can accept. Addendum entered by Shara Cooper R.N. 06/08/22 14:47: Agnes at [facility] called back. Asked that referral be faxed to her alternative fax number, since she is working at home today. Gave her patient's social security number, and further information. Explained that patient is Medicare, observation, and would need to be skilled on COVID waiver if possible. Current diagnosis is UTI. She will review, and consult with Simona in admissions tomorrow. She could possibly admit if accepted, tomorrow. Addendum entered by Shara Cooper R.N. 06/08/22 12:59: Spoke to Juana at [facility], patient most likely will not qualify for them to use the COVID waiver, she inquired if the hospital had an influx of COVID cases, which there is only one at this time. Also, they can't have patient bring in oral chemo, and it would be too much of an expense. [employer] takes a while to cover the stay. Did speak to Jose at [facility], but they do not take waivers, and it is the same scenario for chemo meds. [facility] will still review, Tanna Stock has no openings, so patient most likely will need to go home with increased [facility] [place] and resumption of [facility]. Addendum entered by Shara Cooper R.N. 06/08/22 12:23: Spoke to Perri physical therapist, who indicated, patient did not do well with P.T. Did meet with spouse and patient, bringing in the ipad. Patient and spouse are already aware that patient is under observation, as PRANAY Ramirez nurse came in and explained the HUTSON form. Patient and spouse are hoping that patient can go home, and that he will be stronger tomorrow. Did mention the possibility of care home, if he needs it. Spouse stated, she hopes that he could go under his residential care insurance, but let her know, is unclear at this time, they have not been honoring COVID waivers, may need to initially pay privately. Looked at a couple other facilities, [facility] and [facility]. Spouse was hoping for him to be here, but can go ahead and sent the referrals to [facility]. This is for back up. Other barrier will be his chemo med, he will need to provide. Will fax over referrals to [facility] and [facility], as plan B, plan A is home with home health. Provider stated that he should be ready for discharge tomorrow. Addendum entered by Shara Cooper R.N. 06/08/22 11:16: Met with patient's spouse, Reagan, who is at bedside. Confirmed that patient is under [facility] care, he is getting RN, P.T, O.T, bath aide. Spouse had indicated, they are getting ready to discharge him from services soon. Let her know that this patient will contact [facility] that patient is here in the hospital. Reagan also indicated that patient is getting [facility] [place] in the home three times a week, can increase the care if needed. Called the main number at [facility], only had their answering services. Left Brendan a message, from [place], letting him know that patient is here in the hospital, may be able to discharge tomorrow. Since patient is OBS, [facility] will not need resumption order, but will need DC Summary. Original Note: DCP: Case received, EMR reviewed and met with patient. Introduced self and role. Was able to obtain information regarding patient's baseline activity level at home prior to hospitalization. DCP assessment completed with information currently available. Patient is an 86 year old male who admitted yesterday afternoon to the care of the hospitalist team. PCP: Dr. Alonso. Payer: confirmed: Medicare/ [employer] Patient came to the hospital via ambulance secondary to a ground level fall. Notes indicate that patient had been attempting to get up and walk, and fell, hitting his head. Patient had been weak, he had his chemo dose increased. Patient has history of prostate cancer, pulmonary embolism, and is on Xarelto. Notes also indicate that at his baseline, he is normally able to get up out of bed and do his ADLS, but he was at the point where he was having trouble getting out of bed. Patient has history of sacral pressure ulcer, as well as wounds on his toes. Patient holds current diagnosis of UTI, sepsis given neutrophilia, lactic acidemia. Patient was placed on IV Rocephin. Met with patient in his room. He is alert and oriented, pleasant, was having his breakfast. Confirmed with patient that he resides here in [place] with spouse, Reagan. He does not drive, his spouse takes him to all of his appointments. He has a walker for home use, as well. His spouse will be here later today. Patient has wound consult orders, as well as P.T, and O.T, which are currently pending. P: DCP to continue to follow. Will have to see how patient does with P.T, to see if he is ambulatory, and if he makes inpatient status. Plan is either home versus the possibility of needing care home. Shara Cooper RN/Die Casting Machine Setter Discharge Planning/Care Management CM Discharge Assessment Start: 06/08/22 08:39 Freq: Status: Active Protocol: Document 06/08/22 08:39 (Rec: 06/08/22 08:42 [id number]) Discharge Planning Assessment Assigned Chief Digital Media Officer Shara Cooper RN/Die Casting Machine Setter Advance Directives? Yes: HC DPABI, POL Advance Directives on File Yes History Provided By Patient,Family Member,Medical Record Prior Living Arrangements House Household Members spouse Type of transporation used prior to Relies on Others admit Independent with ADL's Yes Is patient alert and oriented? Yes Needs Assistance With Meal Prep,Home Chores / Shopping Caregiver for Another No Barriers to Discharge Yes Comment If patient is weak to ambulate , will have to see how he does with P.T, and/or if he needs skilled, other barrier is that he is on chemo meds, and may be expensive for rehab facility Transportation Arrangement Spouse, if he needs to go to a facility, they would transport Referrals Initiated Other Additional Comment Patient has not yet been out of bed, will have to see how he does with therapy Whiteboard Updated in Patient Room with Yes name and ext. # of Chief Digital Media Officer Review Status In Process Next Review Type Continued Stay Review
[2022-06-08] MEDS: DOCUSATE 100 MG CAPSULE PO ×2 (09:22→20:22)
[2022-06-08] MEDS: CHOLECALCIFEROL (VITAMIN D3) 1,000 UNIT TABLET 2000 UNIT PO (09:22)
[2022-06-08] MEDS: FINASTERIDE 5 MG TABLET PO (09:22)
[2022-06-08] MEDS: RIVAROXABAN 10 MG TABLET 20 MG PO ×2 (09:22→17:03)
[2022-06-08] MEDS: predniSONE 20 MG TABLET PO (09:22)
[2022-06-08] MEDS: SITAGLIPTIN 50 MG TABLET 100 MG PO (09:23)
[2022-06-08] MEDS: LOSARTAN 50 MG TABLET PO (09:23)
[2022-06-08] MEDS: CYANOCOBALAMIN (VITAMIN B-12) 500 MCG TABLET 1000 MCG PO (09:23)
--- NOTE | 2022-06-08 09:44 | PC.NURSE ---
Addendum entered by Naz Martinez R.N. 06/08/22 11:00: Patient up to commode with 2 person assist and walker. He is unsteady on his feet, and slips easily with actuarial technician socks. PT has weakness on his left side, worked with physical and she states he is 1-2 person mod assist to ambulate. Original Note: Assess- Patient has a dressing to his bottom and his l foot. Will check his coccyx and change dressing today. He denies pain to area's. Patients blood sugars in the 160s, he is a one person assist to ambulate with a walker. He may go home later this afternoon if he walks well with physical therapy.
--- NOTE | 2022-06-08 10:14 | PM.PN.1 ---
Subjective Subjective Date Patient Seen: 06/08/22 Time Patient Seen: 10:14 Interval history: CC: weakness Feeling better this morning hasn't tried to get up yet waiting for PT eval but does feel stronger Ate well peeing into jug ok looks like fluids are off let's get them back on Exam Vital Signs (past 8 hours): - 06/08/22 04:00 06/08/22 08:00 Temperature 99.1 F 96.6 F L Pulse Rate 80 69 Respiratory Rate 18 16 Blood Pressure 127/67 117/66 Pulse Oximetry 93 95 Oxygen Flow Rate 0 Oxygen Delivery Method Room Air Oxygen Flow Rate 0 Narrative Exam Narrative: cheerful elder laying in bed Const Nutritional Appearance: average body habitus and well nourished Resp Auscultation: clear to auscultation bilaterally Cardio Rate: regular rate Rhythm: regular rhythm Heart Sounds: S1 normal and S2 normal GI Palpation: soft and No tender Auscultation: normal bowel sounds Skin Other: sacral wound, LLE toes under dry dressing Extrem General: full ROM and no pedal edema Objective Labs 06/08/22 06:57 06/08/22 06:57 Labs: Laboratory Results - last 24 hr 06/07/22 06/07/22 06/07/22 10:22 10:22 10:55 WBC 10.2 RBC 4.21 L Hgb 12.8 L Hct 38.7 L MCV 92.0 MCH 30.4 MCHC 33.1 RDW 16.6 H Plt Count 156 Neut % (Auto) 86.2 H Lymph % (Auto) 8.6 L [place] % (Auto) 4.6 Eos % (Auto) 0.3 L Baso % (Auto) 0.3 Neut # (Auto) 8800 H Lymph # (Auto) 900 L [place] # (Auto) 500 Eos # (Auto) 0 Baso # (Auto) 0 Sodium 133 L Potassium 3.6 Chloride 103 Carbon Dioxide 24 BUN 25 H Creatinine 0.90 Estimated GFR > 60 BUN/Creatinine Ratio 27.8 H Glucose 234 H Lactate 3.7 H Calcium 9.1 Total Bilirubin 1.1 AST 23 ALT 30 Alkaline Phosphatase 68 Total Creatine Kinase 35 L CK-MB (CK-2) TNP CK-MB (CK-2) Rel Index TNP Troponin I 0.032 Total Protein 5.6 L Albumin 3.1 L Globulin 2.5 Albumin/Globulin Ratio 1.2 Lipase 94 Procalcitonin Urine RBC Urine WBC Urine Bacteria Ur Culture Indicated? SARS-CoV-2 (PCR) Influenza A (RT-PCR) Influenza B (RT-PCR) RSV (PCR) 06/07/22 06/07/22 06/07/22 10:55 13:28 14:45 WBC RBC Hgb Hct MCV MCH MCHC RDW Plt Count Neut % (Auto) Lymph % (Auto) [place] % (Auto) Eos % (Auto) Baso % (Auto) Neut # (Auto) Lymph # (Auto) [place] # (Auto) Eos # (Auto) Baso # (Auto) Sodium Potassium Chloride Carbon Dioxide BUN Creatinine Estimated GFR BUN/Creatinine Ratio Glucose Lactate Calcium Total Bilirubin AST ALT Alkaline Phosphatase Total Creatine Kinase CK-MB (CK-2) CK-MB (CK-2) Rel Index Troponin I Total Protein Albumin Globulin Albumin/Globulin Ratio Lipase Procalcitonin 0.19 Urine RBC 1-5/hpf Urine WBC 5-10/hpf H Urine Bacteria Many (>30) H Ur Culture Indicated? Specimen cultured SARS-CoV-2 (PCR) Negative Influenza A (RT-PCR) Flu a negative Influenza B (RT-PCR) Flu b negative RSV (PCR) Negative 06/07/22 06/08/22 06/08/22 16:15 06:57 06:57 WBC 7.4 RBC 3.86 L Hgb 11.7 L Hct 35.4 L MCV 91.8 MCH 30.3 MCHC 33.0 RDW 16.4 H Plt Count 144 L Neut % (Auto) 78.1 H Lymph % (Auto) 11.6 L [place] % (Auto) 8.2 Eos % (Auto) 1.7 L Baso % (Auto) 0.4 Neut # (Auto) 5800 Lymph # (Auto) 900 L [place] # (Auto) 600 Eos # (Auto) 100 Baso # (Auto) 0 Sodium 135 L Potassium 3.7 Chloride 106 Carbon Dioxide 26 BUN 19 Creatinine 0.75 Estimated GFR > 60 BUN/Creatinine Ratio 25.3 H Glucose 161 H Lactate 1.4 Calcium 8.6 Total Bilirubin 0.7 AST 23 ALT 28 Alkaline Phosphatase 65 Total Creatine Kinase CK-MB (CK-2) CK-MB (CK-2) Rel Index Troponin I Total Protein 5.4 L Albumin 2.7 L Globulin 2.7 Albumin/Globulin Ratio 1.0 Lipase Procalcitonin Urine RBC Urine WBC Urine Bacteria Ur Culture Indicated? SARS-CoV-2 (PCR) Influenza A (RT-PCR) Influenza B (RT-PCR) RSV (PCR) PFSH Medical History Anemia 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 CVA (cerebral vascular accident) Diverticulitis DM type 2 (diabetes mellitus, type 2) Facet arthropathy, lumbar Fall Flank pain, chronic History of colon polyps Hyperlipidemia Hypertension Hypokalemia Lower GI bleed Lumbar post-laminectomy syndrome Obstructive sleep apnea of adult Pressure ulcer Rectal bleeding Snoring Social History marital status: household members: spouse lives independently: No caregiver/support person: Yes (Reagan) housing: house Smoking Status: Never smoker alcohol intake: current Assessment & Plan Assessment & Plan narrative: #UTI #weakness acute #apparent sepsis given neutrophilia, lactic acidemia, weakness, etc iv rocephin q24 with fluids improving neutrophilia and subjectively pending PT eval #prostate cancer #renal cell carcinoma increased steroids back to prednisone 20mg while sick consider longer taper on discharge hold cabozantinib for today likely look to resume tomorrow #sacral pressure wound #diabetic ulcer, LLE 2nd and 3rd digit wounds stable, present on admission, wound care consulted while inpatient, keep cushioned encourage offloading #NIDDM diabetic diet continue januvia with fingersticks and SSI #HTN stable continue losartan 50 #HLD stable continue statin #pulmonary embolism stable on RA, continue Xarelto 20 bid Dispo: improvement noted pending PT eval Code: DNR MDM: Reagan [phone] diet: diabetic DVT ppx: Xarelto Time Spent With Patient Critical Care time: I spent a total of [] minutes of critical care time on this patient's care today; this time is exclusive of procedural time.
--- NOTE | 2022-06-08 11:02 | PT.IIE ---
Medical History (Last Reviewed 06/07/22 @ 16:40 by Cosme Molina MD) Anemia 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 CVA (cerebral vascular accident) Diverticulitis DM type 2 (diabetes mellitus, type 2) Facet arthropathy, lumbar Fall Flank pain, chronic History of colon polyps Hyperlipidemia Hypertension Hypokalemia Lower GI bleed Lumbar post-laminectomy syndrome Obstructive sleep apnea of adult Pressure ulcer Rectal bleeding Snoring Physical Therapy Inpatient Evaluation/Re-Eval M1 PT/OT-IP Prior Functional Status Start: 06/08/22 09:26 Freq: NEEDED Status: Active Protocol: Document 06/08/22 11:02 AW (Rec: 06/08/22 13:06 AW [id number]) Medical Review Prior Functional Status Medical History Reviewed Yes Communication Pt is able to make his needs known. He is TELIDA. Mobility and Gait Pt states he uses a 4WW for household mobility and does not walk much outside the house. He has been falling at home - most often around the toilet Activities of Daily Living and IADL's Pt has caregiver from [facility] 9-12 Thursday and Thursday . Caregiver helps with dressing, bathing, some exercise, and some household tasks. Caregiver in the home is new within the past few weeks. Spouse, Reagan, does all driving and shopping Prior Functional Level (Other details) Pt has history of CVA in 2015 with resultant left sided weakness and sensation disturbance. Social History Household Members spouse Living Arrangements House Number of Floors (Floors) Two Floors Number of Stairs To Enter/Railing? Level entrance, no stairs. Pt enters on main level and has a chair lift to access the basement if needed. Home Environment High Toilet,Walk in Shower Home Equipment Four Wheel Walker,Shower Seat with Backrest,Grab Bars Near Toilet,Grab Bars In Shower Employment Status Retired Additional Social History Comment Pt has a transport chair but does not really use it. 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 He lives with his spouse, Reagan, in [place]. Pt's son and daughter in law live in the area. M2 PT-IP Current Condition Start: 06/08/22 09:26 Freq: NEEDED Status: Active Protocol: Document 06/08/22 11:02 AW (Rec: 06/08/22 13:06 AW [id number]) Physical Therapy Current Condition Current Condition Evaluation Date 06/08/22 Treatment Diagnosis UTI, generalized weakness, impaired mobility and gait Onset Date ~ a week M3 PT-IP Subjective Start: 06/08/22 09:26 Freq: NEEDED Status: Active Protocol: Document 06/08/22 11:02 AW (Rec: 06/08/22 13:06 AW [id number]) Subjective Physical Therapy Visit Type Type Initial Evaluation Visit Start Time 10:44 Visit Stop Time 11:02 Total Visit Minutes 18 Physical Therapy Visit Comments Patient Comments Pt is willing to participate with PT Patient Goals Pt is unclear on his goals. His spouse is open to rehab options given his decline from baseline. Therapy Pain Assessment Pain When Pain Assessed During Mobility Pain Present Pain Present Denied Pain M4 PT-IP Mobility and Gait Start: 06/08/22 09:26 Freq: NEEDED Status: Active Protocol: Document 06/08/22 11:02 AW (Rec: 06/08/22 13:06 AW [id number]) PT-Transfer Assessment Sit to and From Stand Sit to and from Stand Maximum Assistance,1 Person Assistance,Use of Upper Extremities Equipment Transfer Assistive Device Gait Belt,Front Wheeled Walker Orthotic/Prosthetic Devices or Brace: No Transfers Transfer Destination Chair Transfer Technique amb with FWW Transfer Ability Level of Assist Moderate Assistance,Maximum Assistance,1 Person Assistance ,2 Person Assistance,Use of Upper Extremities Comments Mobility Comments Pt was sitting up in the chair as PT arrived. He is tall and needed max assist to stand from the standard height chair . He used FWW to walk 10 feet in the room before fatiguing and needing to sit. Descent to the chair was poorly controlled. Pt was left with call light in reach. Gait Assessment Gait Gait Assistance Required: Moderate Assistance,Maximum Assistance,1 Person Assist,2 Person Assist Distance (Feet) 10 Assistive Devices Assistive Device Gait Belt,Front Wheeled Walker Orthotic/Prosthetic Devices or Brace: No Gait Deviations General Gait Pattern Decreased Stride Length, Decreased Feet Clearance, Flexed Trunk,Narrow Based Gait Factors Limiting Gait Function Factors Limiting Gait Function Decreased Sensation,Decreased Strength,Difficulty Following Directions,Poor Balance,Poor Safety Awareness Comments Gait Comments Pt walks with left foot turned out ~30?. He lacks dorsiflexion strength and tends to drag his left foot. He tends to place the walker too far forward and then steps toward it. He is inconsistent when cued to keep the walker closer to his trunk. Stair Climbing Assessment Comments Stair Climbing Comments Not assessed. Pt has chair lift at home. PT-Balance Assessment Sitting Balance and Reactions Static Sitting Balance Ability Good Dynamic Sitting Balance Ability Good Standing Balance and Reactions Static Standing Balance Ability Fair Dynamic Standing Balance Ability Poor Device Used FWW M5 PT-IP Objective Assessments Start: 06/08/22 09:26 Freq: NEEDED Status: Active Protocol: Document 06/08/22 11:02 AW (Rec: 06/08/22 13:06 AW [id number]) Orientation Orientation/Cognition Level of Alertness Alert Orientation Name,Month,Place,Situation Language Function Ability Hard of Hearing Safety Awareness Decreased Safety Awareness Gross Range of Motion Lower Extremity ROM Assessment Within Functional Limits Strength Lower Extremity Strength Hip R 4-/5; L 3/5 Knee R 4+/5; L 4-/5 Ankle R 4/5; L 3-/5 Comments Strength Comments Pt has history of CVA affecting left side strength Sensation Assessment Sensation Gross Sensation Left LE Impaired Light Touch Absent Proprioception (Position) Impaired Sensation Description Numbness Comments Sensation Comments Left foot significantly impaired. Ankle and calf affected but less severely. Muscle Tone Muscle Tone WNL Yes M6 PT-IP Treatment Start: 06/08/22 09:26 Freq: NEEDED Status: Active Protocol: Document 06/08/22 11:02 AW (Rec: 06/08/22 13:06 AW [id number]) Physical Therapy Treatment Education Education Provided Safety M7 PT-IP Assessment and Plan Start: 06/08/22 09:26 Freq: NEEDED Status: Active Protocol: Document 06/08/22 11:02 AW (Rec: 06/08/22 13:06 AW [id number]) PT Summary Assessment and Plan Potential Rehabilitation Potential Good Status of Condition at Evaluation Evolving Summary Impairments Strength,Balance,Sensation,Bed Mobility,Transfers,Gait, Activity Tolerance Assessment Summary Flako is an 86 yo man admitted with UTI, weakness, and increasing falls frequency . PLOF: Pt had a CVA in 2014 which affected his left side strength and LLE sensation. He is typically modified independent for household mobility using 4WW. He has caregiver assist 3 hours on Mondays and Fridays for ADL support. His spouse provides assist otherwise. CLOF: Pt required max assist to stand from standard height chair and mod/max assist x 1-2 for transfers and short distance gait using FWW. Pt is presenting significantly debilitated compared with baseline function and would certainly benefit from SNF rehab to improve strength and mobility independence. If pt goes home, he will need 24/7 assist for mobility and home health PT. Goals Bed Mobility Goal Standby Assistance Transfer Goal Standby Assistance,Front Wheeled Walker Gait Goal Standby Assistance,Front Wheel Walker Gait Distance 100 Other Goals - improve transfers and gait to SBA with 4WW Days to Meet Goals 8 Frequency of Treatment Frequency Of Treatment Once a Day Treatment Plan Physical Therapy Treatment Plan Bed Mobility Training,Transfer Training,Gait Training, Therapeutic Exercise,Balance Retraining,Discharge Planning, Hot or Cold Pack,Neuromuscular Re-ed Precautions Other Precautions falls; sacral pressure injury - take care to avoid excess shear Recommendations To Nursing Amount of Assist Needed 1 Person Assist,2 Person Assist Discharge Recommendations PT Discharge Recommendations Home with 24/7 Assist Available,Home Health,SNF Rehab,Home vs SNF Transportation Needs at Discharge Private Vehicle,Wheelchair/ Cabulance
[2022-06-08 12:00] VITALS: BP 120/69; PULSE 78; RESP 18; TEMP 35.8; O2SAT 96
[2022-06-08] MEDS: LIDOCAINE 2% INJ SDV 5ML 5 ML (12:01)
[2022-06-08] MEDS: INSULIN LISPRO 100 UNIT/ML 3ML VIAL SUBCUT ×3 (12:02→20:23)
[2022-06-08] MEDS: cefTRIAXone 1,000 MG in SODIUM CHLORIDE 0.9% 100 ML 200 MG IV (15:37)
[2022-06-08 16:00] VITALS: BP 148/91; PULSE 77; RESP 18; TEMP 36.4; O2SAT 96
[2022-06-08 20:00] VITALS: BP 142/87; PULSE 83; RESP 18; TEMP 36.6; O2SAT 96
[2022-06-08] MEDS: ATORVASTATIN 20 MG TABLET 40 MG PO (20:22)
[2022-06-08] MEDS: MUPIROCIN 22 GM OINT 1 APPLIC TOP (20:22)
[2022-06-08] MEDS: SODIUM CHLORIDE 0.9% 1,000 ML 125 ML IV (20:25)
[2022-06-09] VITALS: BP 140/82; PULSE 70; RESP 17; TEMP 36.3; O2SAT 95
[2022-06-09 03:00] VITALS: BP 140/82; PULSE 67; RESP 21; TEMP 36.3; O2SAT 97
[2022-06-09 06:12] LABS: Alanine Aminotransferase 58 IU/L (<50); Albumin 2.7 g/dL (3.5-5.0); Alkaline Phosphatase 121 U/L (38-126); Aspartate Aminotransferase 46 IU/L (17-59); Bilirubin Total 0.4 mg/dL (0.2-1.3); Blood Urea Nitrogen 13 mg/dL (9-20); Calcium 8.3 mg/dL (8.4-10.2); Carbon Dioxide 27 mmol/L (22-32); Chloride 102 mmol/L (98-107); Estimated Glomerular Filt Rate > 60 mL/min (>60); Globulin 2.8 g/dL (1.7-4.1); Glucose 79 mg/dL (80-110); HEMOLYSIS < 15 (0-50); Potassium 3.7 mmol/L (3.4-5.1); Sodium 135 mmol/L (137-145); Total Protein 5.5 g/dL (6.3-8.2)
[2022-06-09] MEDS: SODIUM CHLORIDE 0.9% 1,000 ML 125 ML IV ×3 (06:41→21:39)
[2022-06-09 07:00] VITALS: BP 139/84; PULSE 64; RESP 16; TEMP 36.3; O2SAT 97
[2022-06-09 07:22] LABS: Add Manual Diff / Slide Review NO; Basophils Absolute Auto 0 /uL (0-100); Basophils Percent Auto 0.3 % (0-2); Eosinophils Absolute Auto 100 /uL (0-450); Eosinophils Percent Auto 2.1 % (2-4); Hematocrit 33.9 % (41-53); Hemoglobin 11.3 g/dL (13.5-17.5); Lymphocytes Absolute Auto 900 /uL (1100-4500); Lymphocytes Percent Auto 13.7 % (25-40); Mean Corpuscular HGB Conc 33.4 % (30-36); Mean Corpuscular Hemoglobin 30.6 PG (26-34); Mean Corpuscular Volume 91.8 fL (80-100); Monocytes Absolute Auto 500 /uL (0-900); Monocytes Percent Auto 7.1 % (3-14); Neutrophils Absolute Auto 5100 /uL (1500-7000); Neutrophils Percent Auto 76.8 % (50-75); Platelet Count 145 X10^3/uL (150-400); Red Blood Cell Count 3.69 X10^6/uL (4.5-5.9); Red Cell Distribution Width 16.3 % (11.6-14.8); White Blood Cell Count 6.7 X10^3/uL (4.5-11.0)
[2022-06-09] MEDS: INSULIN LISPRO 100 UNIT/ML 3ML VIAL SUBCUT ×4 (08:55→20:33)
[2022-06-09] MEDS: DOCUSATE 100 MG CAPSULE PO ×2 (09:02→20:33)
[2022-06-09] MEDS: RIVAROXABAN 10 MG TABLET 20 MG PO ×2 (09:03→17:00)
[2022-06-09] MEDS: SITAGLIPTIN 50 MG TABLET 100 MG PO (09:03)
[2022-06-09] MEDS: FINASTERIDE 5 MG TABLET PO (09:03)
[2022-06-09] MEDS: predniSONE 20 MG TABLET PO (09:03)
[2022-06-09] MEDS: CHOLECALCIFEROL (VITAMIN D3) 1,000 UNIT TABLET 2000 UNIT PO (09:03)
[2022-06-09] MEDS: LOSARTAN 50 MG TABLET PO (09:03)
[2022-06-09] MEDS: CYANOCOBALAMIN (VITAMIN B-12) 500 MCG TABLET 1000 MCG PO (09:03)
[2022-06-09] MEDS: MUPIROCIN 22 GM OINT 1 APPLIC TOP (09:07)
[2022-06-09 11:00] VITALS: BP 150/66; PULSE 68; RESP 16; TEMP 35.9; O2SAT 98
--- NOTE | 2022-06-09 11:15 | OT.IP.EVAL ---
Past Medical History (Last Reviewed 06/07/22 @ 16:40 by Cosme Molina MD) Anemia 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 CVA (cerebral vascular accident) Diverticulitis DM type 2 (diabetes mellitus, type 2) Facet arthropathy, lumbar Fall Flank pain, chronic History of colon polyps Hyperlipidemia Hypertension Hypokalemia Lower GI bleed Lumbar post-laminectomy syndrome Obstructive sleep apnea of adult Pressure ulcer Rectal bleeding Snoring Occupational Therapy Inpatient Evaluation/Re-Eval M1 PT/OT-IP Prior Functional Status Start: 06/08/22 09:26 Freq: NEEDED Status: Active Protocol: Document 06/09/22 11:19 CGR (Rec: 06/09/22 11:31 CGR [id number]) Medical Review Prior Functional Status Medical History Reviewed Yes Communication Pt is able to make his needs known. He is NOORVIK. Mobility and Gait Pt states he uses a 4WW for household mobility and does not walk much outside the house. He has been falling at home - most often around the toilet Activities of Daily Living and IADL's Pt has caregiver from [facility] 9-12 Thursday and Thursday . Caregiver helps with dressing, bathing, some exercise, and some household tasks. Caregiver in the home is new within the past few weeks. Spouse, Reagan, does all driving and shopping Prior Functional Level (Other details) Pt has history of CVA in 2015 with resultant left sided weakness LUE and LLE and sensation disturbance to his LLE. Social History Household Members spouse Living Arrangements House Number of Floors (Floors) Two Floors Number of Stairs To Enter/Railing? Level entrance, no stairs. Pt enters on main level and has a chair lift to access the basement if needed. Home Environment High Toilet,Walk in Shower Home Equipment Four Wheel Walker,Shower Seat with Backrest,Grab Bars Near Toilet,Grab Bars In Shower Employment Status Retired Additional Social History Comment Pt has a transport chair but does not really use it. 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 He lives with his spouse, Reagan, in [place]. Pt's son and daughter in law live in the area. M2 OT-IP Current Condition Start: 06/09/22 11:19 Freq: Status: Active Protocol: Document 06/09/22 11:19 CGR (Rec: 06/09/22 11:31 CGR [id number]) Occupational Therapy Current Condition Current Condition Evaluation Date 06/09/22 Treatment Diagnosis GLF, progressive weakness with use of oncology drugs Diagnosis Onset Date 06/07/22 M3 OT- IP Subjective and Pain Start: 06/09/22 11:19 Freq: Status: Active Protocol: Document 06/09/22 11:19 CGR (Rec: 06/09/22 11:31 CGR [id number]) OT- Subjective Occupational Therapy Visit Type Type Initial Evaluation Visit Start Time 10:58 Visit Stop Time 11:15 Total Visit Minutes 17 Notes P.T.A. entered at end of OT session OT Pain Assessment Pain When Pain Assessed At Rest Pain Present Pain Present Denied Pain M4 OT- IP ADL's Start: 06/09/22 11:19 Freq: Status: Active Protocol: Document 06/09/22 11:19 CGR (Rec: 06/09/22 11:31 CGR [id number]) OT [id number] Comments OT Self-Feeding Comments not meal time OT ADL-Grooming Comments OT Grooming Comments pt declined, states already performed OT ADL-Oral Care Comments Oral Care Comments pt declined, states already performed OT ADL-Dressing Comments OT Dressing Comments not tested, pt states he is able to do this at baseline but then pt's states that the new aide has been helping with bathing and dressing. OT ADL-Toileting General Evaluation Toileting Ability Moderate Assistance Areas Needing Assistance Perform Perineal Hygiene Comments OT Toileting Comments Pt had BM residue on seat when he stood. Assisted with back pericare and changed pablo pad . OT ADL-Bathing Comments OT Bathing Comments not performed M5 OT- IP IADL's Start: 06/09/22 11:19 Freq: Status: Active Protocol: Document 06/09/22 11:19 CGR (Rec: 06/09/22 11:31 CGR [id number]) OT-Instrumental Activities of Daily Living Deficits IADL Deficits Identified No Deficits Home Safety Awareness Awareness of Need for Assistance at Home Good Awareness Ability to Problem Solve Emergency Able to Problem Solve Situations Medication Management Medication Management Caregiver Administers Money Management Money Management Caregiver Provides Assistance Meal Preparation Meal Preparation Caregiver Provides Assist Computerized Machine Fabric Cutter Computerized Machine Fabric Cutter Caregiver Provides Assist Driving Driving Comments Pt does not drive. M6 OT- IP Functional Cognition Start: 06/09/22 11:19 Freq: Status: Active Protocol: Document 06/09/22 11:19 CGR (Rec: 06/09/22 11:31 CGR [id number]) Cognitive Factors Limiting Selfcare Function Cognitive Ability Level of Alertness Alert Patient Orientation Name,Age,Birthday,Month,Date, Year,Day of Week,Place, Situation Attention Span Ability Capable of Focused Attention, Capable of Sustained Attention Ability to Follow Commands Able to Follow Multi-Step Commands OT- Vision and Hearing OT- Hearing Assessment OT- Hearing Assessment Hearing Impaired,Use of Hearing Aids OT- Vision Assessment Visual Acuity Glasses All The Time Visual Attentiveness WFL Occular Pursuits WFL Visual Convergence WFL Vision Assessment Comments Pt wears transition bifocals M7 OT- IP Mobility and Balance Start: 06/09/22 11:19 Freq: Status: Active Protocol: Document 06/09/22 11:19 CGR (Rec: 06/09/22 11:31 CGR [id number]) OT-Transfer Assessment Sit to and From Stand Sit to and from Stand Moderate Assistance,1 Person Assistance Transfers Transfer Ability Minimal Assistance Technique Transfer Destination Chair Transfer Technique Stand Step Pivot Devices Transfer Assistive Devices Gait Belt,Front Wheeled Walker Comments Mobility Comments Pt needed mod a for sit to stand from chair after instructions to scoot forward and to use B hands for support . OT- Gait Assessment Gait Gait Assistance Required: Minimum Assistance Distance (Feet) 12 Assistive Devices Assistive Device Gait Belt,Front Wheeled Walker Comments Gait Ability Comments Pt ambulated in the room with min a but heavy use of the 2ww . His L foot drags with mobility at times. OT- Balance Assessment Sitting Balance and Reactions Static Sitting Balance Ability Good Dynamic Sitting Balance Ability Fair M8 OT- IP Objective Assessments Start: 06/09/22 11:19 Freq: Status: Active Protocol: Document 06/09/22 11:19 CGR (Rec: 06/09/22 11:31 CGR [id number]) OT Gross Range of Motion Upper Extremity Range of Motion Assessment Left Impaired ROM Impairments R shld 0-110 l shld 0-80 OT Strength Upper Extremity Strength Assessment Left Impaired Hand Marketing Communications Manager Strength Hand Dominance Right Comments Strength Comments Pt's left side is grossly 3+/5 , Pt's R hand and arm are 4+/5 but R shld 3+/5 OT- Coordination Assessment Upper Extremity Finger to Nose Test Within Functional Limits Finger Tapping Test Within Functional Limits OT-Muscle Tone Assessment Muscle Tone WNL Yes OT Sensation Assessment Comments Summary Comments Pt states sensation is typical to the LUE and states that the abnormal sensation is mostly to the LLE from his previous CVA Edema Edema Absent M9 OT- IP Assessment and Plan Start: 06/09/22 11:19 Freq: Status: Active Protocol: Document 06/09/22 11:19 CGR (Rec: 06/09/22 11:31 CGR [id number]) OT Summary Assessment and Plan Potential Rehabilitation Potential Good Analytic Complexity at Evaluation High Summary OT Impairments Range of Motion,Strength, Balance,Functional Mobility, Grooming,Dressing,Toileting, Bathing,Toilet Transfers, Shower Transfers,Activity Tolerance Progress Towards Goals Progressing Toward Goals Assessment Summary Pt presents as a high complexity evaluation s/p admit for generalized weakness . 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 Pt needed mod a for sit to stand today and min a for moving around the room. He also needed assist for back pericare. Pt will benefit from continued therapy services. Recommendation is for SNF vs home depending on progress. Pt would like to d/c home. Pt will need family training prior to d/c home. Goals Grooming Goal Independent Dressing Goal Independent Toileting Goal Independent Bathing Goal Standby Assistance Toilet Transfer Goal Independent Shower Transfer Goal Standby Assistance Days to Meet Goals 10 Frequency of Treatment Frequency Of Treatment Once a Day Treatment Plan OT Treatment Plan ADL Training,Functional Mobility,Therapeutic Exercises ,Patient/Family Education, Discharge Planning Other Treatment Recommendations and Next Assess dressing, shower if Treatment Focus able. ADLs standing at sink Discharge Recommendations OT Discharge Recommendations Home vs SNF Transportation Needs at Discharge Private Vehicle
--- NOTE | 2022-06-09 11:44 | PT.IPTN ---
Physical Therapy Treatment Note M2 PT-IP Current Condition Start: 06/08/22 09:26 Freq: NEEDED Status: Active Protocol: Document 06/09/22 11:12 SP (Rec: 06/09/22 12:31 SP [id number]) Physical Therapy Current Condition Current Condition Evaluation Date 06/08/22 Treatment Diagnosis UTI, generalized weakness, impaired mobility and gait Onset Date ~ a week M3 PT-IP Subjective Start: 06/08/22 09:26 Freq: NEEDED Status: Active Protocol: Document 06/09/22 11:12 SP (Rec: 06/09/22 12:31 SP [id number]) Subjective Physical Therapy Visit Type Type Treatment Note Visit Start Time 11:12 Visit Stop Time 11:44 Total Visit Minutes 32 Notes in room, observed tx and provided cues for support and closer to baseline mobility. Number of TELECOMMUNICATIONS REPAIRER Visits 1 Physical Therapy Visit Comments Patient Comments Pt is willing to participate with PT Patient Goals Pt is unclear on his goals. Pt and spouse comment getting closer to his baseline but in agreement safety not strong enough getting around alone. Therapy Pain Assessment Pain When Pain Assessed During Mobility Pain Present Pain Present Denied Pain M4 PT-IP Mobility and Gait Start: 06/08/22 09:26 Freq: NEEDED Status: Active Protocol: Document 06/09/22 11:12 SP (Rec: 06/09/22 12:31 SP [id number]) PT-Bed Mobility Assessment Rolling Type of Rolling Log Rolling,Roll to Right Level of Assist Contact Guard Assistance, Minimal Assistance,1 Person Assistance Supine to Sit Supine to Sit Contact Guard Assistance, Minimal Assistance,1 Person Assistance,Bedrails Sit to Supine Sit to Supine Standby Assistance,1 Person Assistance,Bedrails Scooting Scooting to Edge of Bed Standby Assistance Scooting Up and Down in Bed Standby Assistance PT-Transfer Assessment Sit to and From Stand Sit to and from Stand Contact Guard Assistance, Minimal Assistance,1 Person Assistance,Use of Upper Extremities Equipment Transfer Assistive Device Gait Belt,Front Wheeled Walker ,4 Wheeled Walker Orthotic/Prosthetic Devices or Brace: No Transfers Transfer Destination Bed,Chair Transfer Technique ambulated with FWW/4WW Transfer Ability Level of Assist Contact Guard Assistance, Minimal Assistance,1 Person Assistance,Use of Upper Extremities Comments Mobility Comments Pt up in chair when arrived, OT just finished tx. TELECOMMUNICATIONS REPAIRER donned gait belt. sit<>stand CG-5% A with cues for pushing BUE better from chairarm rests / bed. Pt has elevated bed approx 23 at home. Max cues for reaching back slow descent , poor carryover hand placement and 1 rep 1 UE reach back support quick descend/ flop into chair, last transfer bed>chair good centering/ 4ww brake mgt and reaching back slow descend but only after much education for importance of trunk/LE strengthening support to slow effort. Completed gait across room x2 laps w/ FWW (cued body proximity advance/stop each step not push along), 1 lap 4WW better with proper squeeze each step as use to at home. Pt did need max cues for slow R better than L turns and awareness for safety pacing to allow TELECOMMUNICATIONS REPAIRER IV positioning support and less tension Completed sit>supine SBA BUE assist BLEs, sup>LR R use bed rails and 5%A pelvis turn, CGA -5%A trunk right to sit w/ bed rail support has at home. Pt up in chair with nursing in room, took over care. TELECOMMUNICATIONS REPAIRER reported CG-5%A wFWW/4WW needed for safe mobility. Request CGT tomorrow with spouse, will be here all day when PT available. TELECOMMUNICATIONS REPAIRER recommending HHPT / available w/ and caregivers vs SNF. Will continue to assess progress. Gait Assessment Gait Gait Assistance Required: Contact Guard Assist,Minimum Assistance,1 Person Assist Distance (Feet) 60 Assistive Devices Assistive Device Gait Belt,Front Wheeled Walker Orthotic/Prosthetic Devices or Brace: No Gait Deviations General Gait Pattern Antalgic,Decreased Stride Length,Decreased Feet Clearance,Flexed Trunk,Narrow Based Gait,Step-to Gait Factors Limiting Gait Function Factors Limiting Gait Function Decreased Sensation,Decreased Strength,Difficulty Following Directions,Poor Balance,Poor Safety Awareness Comments Gait Comments See mobility comments Stair Climbing Assessment Comments Stair Climbing Comments Not assessed. Pt has chair lift at home to basement not need to access. PT-Balance Assessment Sitting Balance and Reactions Static Sitting Balance Ability Good Dynamic Sitting Balance Ability Good Standing Balance and Reactions Static Standing Balance Ability Good Dynamic Standing Balance Ability Fair Device Used FWW/4WW M5 PT-IP Objective Assessments Start: 06/08/22 09:26 Freq: NEEDED Status: Active Protocol: Document 06/08/22 11:02 AW (Rec: 06/08/22 13:06 AW [id number]) Orientation Orientation/Cognition Level of Alertness Alert Orientation Name,Month,Place,Situation Language Function Ability Hard of Hearing Safety Awareness Decreased Safety Awareness Gross Range of Motion Lower Extremity ROM Assessment Within Functional Limits Strength Lower Extremity Strength Hip R 4-/5; L 3/5 Knee R 4+/5; L 4-/5 Ankle R 4/5; L 3-/5 Comments Strength Comments Pt has history of CVA affecting left side strength Sensation Assessment Sensation Gross Sensation Left LE Impaired Light Touch Absent Proprioception (Position) Impaired Sensation Description Numbness Comments Sensation Comments Left foot significantly impaired. Ankle and calf affected but less severely. Muscle Tone Muscle Tone WNL Yes M6 PT-IP Treatment Start: 06/08/22 09:26 Freq: NEEDED Status: Active Protocol: Document 06/09/22 11:12 SP (Rec: 06/09/22 12:31 SP [id number]) Physical Therapy Treatment Education Education Provided Safety M7 PT-IP Assessment and Plan Start: 06/08/22 09:26 Freq: NEEDED Status: Active Protocol: Document 06/09/22 11:12 SP (Rec: 06/09/22 12:31 SP [id number]) PT Summary Assessment and Plan Potential Rehabilitation Potential Good Status of Condition at Evaluation Evolving Summary Impairments Strength,Balance,Sensation,Bed Mobility,Transfers,Gait, Activity Tolerance Progress Towards Goals Slow Progress due to Activity Tolerance Assessment Summary Pt improved mobility STS/gait CG- [place] x1 wFWW/ 4WW step to patterning but poor safety proper hand positioning and performance slow descent sit, falls into chair, last reps improved CGA . SBA sit>sup, CG -5%A LR R>sit for trunk support. Pt requires Max cues for safety pacing/positioning during gait FWW/ 4WW and awareness of IV line positioning support, he is impulsive, improved but not safe consistant yet to perform Caregiver training. Pt would certainly benefit from SNF rehab to improve strength and mobility independence. If pt goes home, he will need 24/7 assist for mobility and home health PT. Caregiver training tomorrow, inpatient therapist to coordinate. Goals Bed Mobility Goal Standby Assistance Transfer Goal Standby Assistance,Front Wheeled Walker Gait Goal Standby Assistance,Front Wheel Walker Gait Distance 100 Other Goals - improve transfers and gait to SBA with 4WW Days to Meet Goals 8 Frequency of Treatment Frequency Of Treatment Once a Day Treatment Plan Physical Therapy Treatment Plan Bed Mobility Training,Transfer Training,Gait Training, Therapeutic Exercise,Balance Retraining,Discharge Planning, Hot or Cold Pack,Neuromuscular Re-ed Other Recommendations and Next Treatment CGT 06/09 coordinate with . Focus Bed mob, transfers gait w/4WW , including bathroom use. Precautions Other Precautions falls; sacral pressure injury - take care to avoid excess shear (using waffle cushion) Recommendations To Nursing Amount of Assist Needed 1 Person Assist Discharge Recommendations PT Discharge Recommendations Home with 01/12 Assist Available,Home Health,SNF Rehab,Home vs SNF Transportation Needs at Discharge Private Vehicle,Wheelchair/ Cabulance
--- NOTE | 2022-06-09 12:51 | P.CONS_ITS ---
History of Present Illness Consult details Date Patient Seen: 06/09/22 Time Patient Seen: 12:00 Chief complaint: Mod Trauma, GLF Reason for consult: Sacral wound, wounds left 2nd and 3rd toes Narrative: The patient is an 86-year-old male with metastatic prostate cancer, type 2 diabetes mellitus, and history of previous CVA who was recently admitted to the hospital with a UTI. He is an establish patient at the wound center and is followed by Gadiel Ruff NP. The patient was last seen June 06, 2022 and his wounds were noted to be stable. He has been receiving dressing changes with DuoDerm to the stage II pressure injury over the coccyx. He has a long history of open wounds on the dorsal aspect of the left 2nd and 3rd toes which are managed by Dr. Huston. Most recently he has been receiving dressing changes with Xeroform gauze. The patient denies having any recent problems with his wounds. He has not noted any redness, swelling, or purulent drainage. Meds Home Medications and Allergies Home Medications Medication Instructions Recorded Confirmed Type Aircurve Auto Bipap #1 ea 07/05/18 06/07/22 Rx Fiber-Caps (psyllium husk) 2 cap DAILY 07/21/18 06/07/22 History Vitamin B-12 1,000 mcg DAILY 07/21/18 06/07/22 History Vitamin D3 2,000 unit DAILY 07/21/18 06/07/22 History Respironics DreamStation CPAP #1 ea 08/12/18 06/07/22 History sitagliptin phosphate 50 mg tablet 50 mg PO DAILY 07/22/21 04/09/22 History (Mali) atorvastatin 40 mg tablet 40 mg PO BEDTIME 10/28/21 04/09/22 History finasteride 5 mg tablet 5 mg PO DAILY 10/28/21 04/09/22 History glipizide 5 mg tablet, extended tab PO 10/28/21 04/09/22 History release 24 hr losartan 50 mg tablet 50 mg PO DAILY 10/28/21 04/09/22 History mupirocin 2 % topical ointment 1 applic topical BID #22 grams 05/09/22 06/07/22 Rx cefpodoxime 100 mg tablet 100 mg PO BID #14 tabs 05/11/22 Rx Allergies Allergy/AdvReac Type Severity Reaction Status Date / Time levofloxacin [LEVOFLOXACIN] Allergy Severe SWOLLEN Verified 06/07/22 10:29 TONGUE Exam Vital Signs (past 8 hours): - 06/09/22 07:00 06/09/22 08:55 06/09/22 11:00 Temperature 97.4 F L 96.6 F L Pulse Rate 64 68 Respiratory Rate 16 16 Blood Pressure 139/84 150/66 H Pulse Oximetry 97 98 Oxygen Delivery Method Room Air Oxygen Flow Rate 0 0 Oxygen Delivery Method Room Air Oxygen Flow Rate 0 Skin Other: Stage II pressure injury over coccyx with no sign of active infection, full- thickness open wounds dorsal aspect left 2nd and 3rd toes with no sign of active infection Objective Labs 06/09/22 07:10 06/09/22 05:20 Labs: Laboratory Results - last 24 hr 06/09/22 06/09/22 05:20 07:10 WBC 6.7 RBC 3.69 L Hgb 11.3 L Hct 33.9 L MCV 91.8 MCH 30.6 MCHC 33.4 RDW 16.3 H Plt Count 145 L Neut % (Auto) 76.8 H Lymph % (Auto) 13.7 L [place] % (Auto) 7.1 Eos % (Auto) 2.1 Baso % (Auto) 0.3 Neut # (Auto) 5100 Lymph # (Auto) 900 L [place] # (Auto) 500 Eos # (Auto) 100 Baso # (Auto) 0 Sodium 135 L Potassium 3.7 Chloride 102 Carbon Dioxide 27 BUN 13 Creatinine 0.59 L Estimated GFR > 60 BUN/Creatinine Ratio 22.0 Glucose 79 L Calcium 8.3 L Total Bilirubin 0.4 AST 46 ALT 58 H Alkaline Phosphatase 121 D Total Protein 5.5 L Albumin 2.7 L Globulin 2.8 Albumin/Globulin Ratio 1.0 [facility] Medical History Anemia 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 CVA (cerebral vascular accident) Diverticulitis DM type 2 (diabetes mellitus, type 2) Facet arthropathy, lumbar Fall Flank pain, chronic History of colon polyps Hyperlipidemia Hypertension Hypokalemia Lower GI bleed Lumbar post-laminectomy syndrome Obstructive sleep apnea of adult Pressure ulcer Rectal bleeding Snoring Social History marital status: household members: spouse lives independently: No caregiver/support person: Yes (Reagan) housing: house Tobacco & Substance Use Smoking Status: Never smoker alcohol intake: current Assessment & Plan Assessment and plan (1) Diabetic ulcer of foot associated with diabetes mellitus due to underlying condition, limited to breakdown of skin: Qualifiers: Diabetic foot ulcer location: toe Laterality: left Qualified Code(s): E08.621 - Diabetes mellitus due to underlying condition with foot ulcer; L97.521 - Non-pressure chronic ulcer of other part of left foot limited to breakdown of skin Status: Acute (2) Pressure ulcer: Qualifiers: Pressure injury location: buttock Pressure injury stage: stage 1 Laterality: right Qualified Code(s): L89.311 - Pressure ulcer of right buttock, stage 1 Status: Acute Plan Resume dressing changes to sacral pressure injury with DuoDerm, pressure offloading, frequent turning, mattress overlay, protein supplementation. Continue dressing changes to left 2nd and 3rd toe with Xeroform gauze every other day. Follow up at wound center after discharge. Time Spent With Patient Time with patient: less than 30 minutes Critical Care time: I spent a total of [] minutes of critical care time on this patient's care today; this time is exclusive of procedural time.
--- NOTE | 2022-06-09 14:41 | DIET.CONS2 ---
Dietary Inpatient Consultation Note Admission Date: 06/07/2022 15:47 86y M admitted for GLF screened by RD for hyperglycemia related to systemic steroid use. Pt seen at wound care for sacral and dorsal surface pressure ulcers. Pt with [id number] during hospitalization. Pt likely going to SNF on d/c with slower taper of steroids. Pt may benefit from Rx insulin coverage to keep BG <180 while tapering from steroids while at SNF r/t wound care. Diet: 06/07/22 Dinner Carbohydrate Consistent Diet Diet Modifications: Carbohydrate level: Medium (3 CHO) Courtesy [place] (Peds, comfort care) Diet Modifications: Nutrition Percent Meal Consumed 100% 06/09/22 13:00 Percent Meal Consumed 100% 06/08/22 18:00 Electronically Signed by: Lilian Menon 06/09/22 14:41 Clinical Dietitian [address] [address]
[2022-06-09 15:00] VITALS: BP 128/81; PULSE 65; RESP 16; TEMP 36.1; O2SAT 98
[2022-06-09] MEDS: CEFEPIME 2 GM in SODIUM CHLORIDE 0.9% 100 ML IV ×2 (15:01→21:40)
--- NOTE | 2022-06-09 17:43 | P.PN_ITS ---
Subjective Subjective Date Patient Seen: 06/09/22 Time Patient Seen: 08:50 Exam Vital Signs (past 8 hours): - 06/09/22 11:00 06/09/22 15:00 Temperature 96.6 F L 96.9 F L Pulse Rate 68 65 Respiratory Rate 16 16 Blood Pressure 150/66 H 128/81 Pulse Oximetry 98 98 Oxygen Flow Rate 0 0 Oxygen Delivery Method Room Air Oxygen Flow Rate 0 Narrative Exam Narrative: pleasant elder laying in bed Const Nutritional Appearance: well nourished HENMI Head: atraumatic Eyes General: appearance normal, both eyes and all related structures Cardio Other: regular rate, S1/S2 GI Other: soft nontender nondistended normal bowel sounds Skin Other: L 2nd and 3rd digits of LLE with open wounds on dorsum of toes with some blue suture in place minimal cheesy discharge no bleeding Psych Mental Status: mental status grossly normal Speech and Movement: speech and movement normal Objective Labs 06/09/22 07:10 06/09/22 05:20 Labs: Laboratory Results - last 24 hr 06/09/22 06/09/22 05:20 07:10 WBC 6.7 RBC 3.69 L Hgb 11.3 L Hct 33.9 L MCV 91.8 MCH 30.6 MCHC 33.4 RDW 16.3 H Plt Count 145 L Neut % (Auto) 76.8 H Lymph % (Auto) 13.[address] [facility] % (Auto) 7.1 Eos % (Auto) 2.1 Baso % (Auto) 0.3 Neut # (Auto) 5100 Lymph # (Auto) [address] [facility] # (Auto) 500 Eos # (Auto) 100 Baso # (Auto) 0 Sodium 135 L Potassium 3.7 Chloride 102 Carbon Dioxide 27 BUN 13 Creatinine 0.59 L Estimated GFR > 60 BUN/Creatinine Ratio 22.0 Glucose 79 L Calcium 8.3 L Total Bilirubin 0.4 AST 46 ALT 58 H Alkaline Phosphatase 121 D Total Protein 5.5 L Albumin 2.7 L Globulin 2.8 Albumin/Globulin Ratio 1.0 PFSH Medical History Anemia 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 CVA (cerebral vascular accident) Diverticulitis DM type 2 (diabetes mellitus, type 2) Facet arthropathy, lumbar Fall Flank pain, chronic History of colon polyps Hyperlipidemia Hypertension Hypokalemia Lower GI bleed Lumbar post-laminectomy syndrome Obstructive sleep apnea of adult Pressure ulcer Rectal bleeding Snoring Social History marital status: household members: spouse lives independently: No caregiver/support person: Yes (Reagan) housing: house Smoking Status: Never smoker alcohol intake: current Assessment & Plan Assessment & Plan narrative: #UTI #apparent sepsis given neutrophilia, lactic acidemia, weakness, etc iv rocephin q24 with fluids had been improving some urine grew klebsiella resistant to rocephin switched to cefepime should be sensitive to levaquin for discharge improving neutrophilia plan likely to d/c home with HH and visiting angels tomorrow if ambulating ok #weakness acute improving with fluids and abx able to get up and walk with PT today with mod assist and RW #prostate cancer #renal cell carcinoma increased steroids back to prednisone 20mg while sick consider longer taper on discharge hold cabozantinib per discussion with oncology until he sees them #sacral pressure wound #diabetic ulcer, LLE 2nd and 3rd digit wounds stable, present on admission, wound care consulted while inpatient, appreciate their input today encourage offloading and mobilization #NIDDM diabetic diet continue januvia with fingersticks and SSI #HTN stable continue losartan 50 #HLD stable continue statin #pulmonary embolism breathing ok on RA, continue Xarelto 15 bid Dispo: home tomorrow with HH on oral abx Code: DNR MDM: Reagan [phone] diet: diabetic DVT ppx: Xarelto Time Spent With Patient Critical Care time: I spent a total of [] minutes of critical care time on this patient's care today; this time is exclusive of procedural time.
[2022-06-09 19:50] VITALS: BP 125/79; PULSE 78; RESP 18; TEMP 36.5; O2SAT 94
[2022-06-09] MEDS: ATORVASTATIN 20 MG TABLET 40 MG PO (20:33)
[2022-06-10 00:26] VITALS: BP 139/77; PULSE 65; RESP 18; TEMP 36.5; O2SAT 97
[2022-06-10 05:10] VITALS: BP 142/86; PULSE 61; RESP 18; TEMP 36.6; O2SAT 97
[2022-06-10] MEDS: CEFEPIME 2 GM in SODIUM CHLORIDE 0.9% 100 ML IV (05:14)
[2022-06-10 05:15] LABS: Add Manual Diff / Slide Review NO; Basophils Absolute Auto 0 /uL (0-100); Basophils Percent Auto 0.3 % (0-2); Eosinophils Absolute Auto 200 /uL (0-450); Eosinophils Percent Auto 3.1 % (2-4); Hematocrit 31.4 % (41-53); Hemoglobin 10.6 g/dL (13.5-17.5); Lymphocytes Absolute Auto 1300 /uL (1100-4500); Lymphocytes Percent Auto 21.8 % (25-40); Mean Corpuscular HGB Conc 33.7 % (30-36); Mean Corpuscular Hemoglobin 30.7 PG (26-34); Mean Corpuscular Volume 90.8 fL (80-100); Monocytes Absolute Auto 400 /uL (0-900); Monocytes Percent Auto 6.6 % (3-14); Neutrophils Absolute Auto 3900 /uL (1500-7000); Neutrophils Percent Auto 68.2 % (50-75); Platelet Count 150 X10^3/uL (150-400); Red Blood Cell Count 3.45 X10^6/uL (4.5-5.9); Red Cell Distribution Width 16.2 % (11.6-14.8); White Blood Cell Count 5.8 X10^3/uL (4.5-11.0)
[2022-06-10 05:31] LABS: Alanine Aminotransferase 29 IU/L (<50); Albumin 2.3 g/dL (3.5-5.0); Alkaline Phosphatase 56 U/L (38-126); Aspartate Aminotransferase 24 IU/L (17-59); BUN Creatinine Ratio 26.9 (6-22); Bilirubin Total 0.6 mg/dL (0.2-1.3); Blood Urea Nitrogen 18 mg/dL (9-20); Calcium 7.9 mg/dL (8.4-10.2); Carbon Dioxide 22 mmol/L (22-32); Chloride 113 mmol/L (98-107); Estimated Glomerular Filt Rate > 60 mL/min (>60); Globulin 2.4 g/dL (1.7-4.1); Glucose 167 mg/dL (80-110); HEMOLYSIS < 15 (0-50); Potassium 3.6 mmol/L (3.4-5.1); Sodium 138 mmol/L (137-145); Total Protein 4.7 g/dL (6.3-8.2)
[2022-06-10] MEDS: SODIUM CHLORIDE 0.9% 1,000 ML 125 ML IV (07:59)
[2022-06-10 08:28] VITALS: BP 132/85; PULSE 57; RESP 18; TEMP 35.9; O2SAT 97
[2022-06-10] MEDS: INSULIN LISPRO 100 UNIT/ML 3ML VIAL SUBCUT (08:48)
--- NOTE | 2022-06-10 08:58 | PM.DS.1 ---
History of Present Illness History of Present Illness Date Patient Seen: 06/10/22 Time Patient Seen: 08:58 Date of Onset of Symptoms: 06/03/22 Chief complaint: Mod Trauma, GLF Discharge Providers Provider Date of admission: 06/07/22 15:47 Discharge Date: 06/10/22 Primary care physician: Roger Du MD Consults: 06/07/22 14:24 Consult to [facility] [place] [facility] [place] Community Educator Stat Comment: too weak to go home 06/07/22 16:52 Consult to Inpatient Wound Care Nurse Routine Comment: Reason for consultation: sacral and foot wounds Has provider been notified: No Consult to Wound Care Routine Comment: Consulting Provider: Nestor- Wound Care 06/07/22 16:53 Consult to Occupational Therapy Evaluate & Treat Comment: Physician Instructions: Evaluate and treat Consult to Physical Therapy Evaluate & Treat Comment: Physician Instructions: Evaluate and Treat Discharge provider: Lavonne Valdez MD Summary Hospital Course Discharge Diagnosis: UTI with sepsis and blood cultures thus far negative Renal cell carcinoma Prostate cancer Hyperlipidemia Left lower extremity wounds Increased fall risk Hypertension Hospital Course: Patient admitted to hospital with weakness and fall and diagnosed with UTI with sepsis. Patient had associated leukocytosis. Patient was treated initially with resistant antibiotic and then switched to cefepime. Patient had marked improvement. Wound Care was consulted due to chronic wounds. Wound care dressing instructions were given. Patient will be discharged home on due to allergy to Levaquin and multiple resistance to the Klebsiella bacteria that grew out in his urine. Patient will follow-up with wound care Patient will follow-up with oncology Patient will follow-up with Dr. Du next week All other outpatient medications will be continued and patient will take 1 week of . Patient will be discharged home with home health and RN will be added due to wound care needs Exam Vital Signs (past 8 hours): - 06/10/22 05:10 06/10/22 08:28 Temperature 97.8 F 96.6 F L Pulse Rate 61 57 L Respiratory Rate 18 18 Blood Pressure 142/86 H 132/85 Pulse Oximetry 97 97 Oxygen Flow Rate 0 0 Oxygen Delivery Method Room Air Oxygen Flow Rate 0 Narrative Exam Narrative: Alert and oriented x3 HEENT unremarkable Neck: Supple Chest: Clear to auscultation without wheezes rhonchi or crackles Cor: Distant S1-S2 but regular rate and rhythm Abdomen: Positive bowel sounds, soft, nontender Lower extremity with 1 to 2+ pitting edema left ankle and foot. Wounds are dressed. Abrasions on right knee and left knee are healing Neurologic exam nonfocal Objective Labs 06/10/22 04:46 06/10/22 04:46 Labs: Laboratory Results - last 24 hr 06/10/22 06/10/22 04:46 04:46 WBC 5.8 RBC 3.45 L Hgb 10.6 L Hct 31.4 L MCV 90.8 MCH 30.7 MCHC 33.7 RDW 16.2 H Plt Count 150 Neut % (Auto) 68.2 Lymph % (Auto) 21.8 L [place] % (Auto) 6.6 Eos % (Auto) 3.1 Baso % (Auto) 0.3 Neut # (Auto) 3900 Lymph # (Auto) 1300 [place] # (Auto) 400 Eos # (Auto) 200 Baso # (Auto) 0 Sodium 138 Potassium 3.6 Chloride 113 H Carbon Dioxide 22 BUN 18 Creatinine 0.67 Estimated GFR > 60 BUN/Creatinine Ratio 26.9 H Glucose 167 H Calcium 7.9 L Total Bilirubin 0.6 AST 24 ALT 29 Alkaline Phosphatase 56 D Total Protein 4.7 L Albumin 2.3 L Globulin 2.4 Albumin/Globulin Ratio 1.0 PFSH Medical History Anemia 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 CVA (cerebral vascular accident) Diverticulitis DM type 2 (diabetes mellitus, type 2) Facet arthropathy, lumbar Fall Flank pain, chronic History of colon polyps Hyperlipidemia Hypertension Hypokalemia Lower GI bleed Lumbar post-laminectomy syndrome Obstructive sleep apnea of adult Pressure ulcer Rectal bleeding Snoring Social History marital status: household members: spouse lives independently: No caregiver/support person: Yes (Reagan) housing: house Smoking Status: Never smoker alcohol intake: current Discharge Assessment & Plan Assessment and Plan Assessment: [address] [address] Progress Note Patient: Flako Dodson MR#: [id number] : 1935 Acct:[id number] Age/Sex: 86 / M ? Date of Service: 06/07/22 Provider:?Cosme Molina MD Subjective Subjective Date Patient Seen: 06/09/22 Time Patient Seen: 08:50 Exam Vital Signs (past 8 hours): - ? 06/09/22 11:00 06/09/22 15:00 Temperature 96.6 F L 96.9 F L Pulse Rate 68 65 Respiratory Rate 16 16 Blood Pressure 150/66 H 128/81 Pulse Oximetry 98 98 Oxygen Flow Rate 0 0 Oxygen Delivery Method? Room Air? Oxygen Flow Rate? 0 ? Narrative Exam Narrative: pleasant elder laying in bed Const Nutritional Appearance: well nourished HENMS Head: atraumatic Eyes General: appearance normal, both eyes and all related structures Cardio Other: regular rate, S1/S2 GI Other: soft nontender nondistended normal bowel sounds Skin Other: L 2nd and 3rd digits of LLE with open wounds on dorsum of toes with some blue suture in place minimal cheesy discharge no bleeding Psych Mental Status: mental status grossly normal Speech and Movement: speech and movement normal Objective Labs 06/09/22 07:10? 06/09/22 05:20? Labs: Laboratory Results - last 24 hr ? 06/09/22 06/09/22 ? 05:20 07:10 WBC ? ?6.7 RBC ? ?3.69 L Hgb ? ?11.3 L Hct ? ?33.9 L MCV ? ?91.8 MCH ? ?30.6 MCHC ? ?33.4 RDW ? ?16.3 H Plt Count ? ?145 L Neut % (Auto) ? ?76.8 H Lymph % (Auto) ? ?13.7 L [place] % (Auto) ? ?7.1 Eos % (Auto) ? ?2.1 Baso % (Auto) ? ?0.3 Neut # (Auto) ? ?5100 Lymph # (Auto) ? ?900 L [place] # (Auto) ? ?500 Eos # (Auto) ? ?100 Baso # (Auto) ? ?0 Sodium ?135 L ? Potassium ?3.7 ? Chloride ?102 ? Carbon Dioxide ?27 ? BUN ?13 ? Creatinine ?0.59 L ? Estimated GFR ?> 60 ? BUN/Creatinine Ratio ?22.0 ? Glucose ?79 L ? Calcium ?8.3 L ? Total Bilirubin ?0.4 ? AST ?46 ? ALT ?58 H ? Alkaline Phosphatase ?121? D ? Total Protein ?5.5 L ? Albumin ?2.7 L ? Globulin ?2.8 ? Albumin/Globulin Ratio ?1.0 ? PFSH Medical History? 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 marital status:? household members:? spouse lives independently:? No caregiver/support person:? Yes (Reagan) housing:? house Smoking Status:? Never smoker alcohol intake:? current Assessment & Plan Assessment & Plan narrative: #UTI #apparent sepsis given neutrophilia, lactic acidemia, weakness, etc iv rocephin q24 with fluids had been improving some urine grew klebsiella resistant to rocephin switched to cefepime should be sensitive to levaquin for discharge, OT and wound care improving neutrophilia plan DC home on due to allergy to Levaquin. Will have home health for PT #weakness acute improving with fluids and abx DC to home with home health for PT, OT #prostate cancer #renal cell carcinoma increased steroids back to prednisone 20mg while sick consider longer taper on discharge Will hold chemotherapy agent. Will discharge home on prednisone 20 He will follow-up with Flor[facility] next week and then will taper from here. He will follow-up with oncology. #sacral pressure wound #diabetic ulcer, LLE 2nd and 3rd digit wounds stable, present on admission, wound care consulted while inpatient, appreciate their input today encourage offloading and mobilization Appreciate Wound consult. He will be discharged home with wound care #NIDDM diabetic diet continue januvia with fingersticks and SSI #HTN stable continue losartan 50 #HLD stable continue statin #pulmonary embolism breathing ok on RA, continue Xarelto 15 b Discharge Plan Discharge Plan Patient Disposition: Home Health Service Discharge orders & Medications Prescriptions: New sulfamethoxazole-trimethoprim 800-160 mg Tablet 1 tab PO BID Qty: 14 0RF prednisone 20 mg tablet 20 mg PO DAILY Qty: 14 0RF Rx Instructions: 1 tablet daily for 7 days and then 1/2 tablet daily for 7 days then 1/2 tablet every other day for 6 days Continued Fiber-Caps (psyllium husk) 2 cap DAILY Vitamin B-12 1,000 mcg 1,000 mcg DAILY Vitamin D3 2,000 units 2,000 unit DAILY mupirocin 2 % ointment 1 applic topical BID Qty: 22 0RF Januvia 50 mg tablet 50 mg PO DAILY finasteride 5 mg tablet 5 mg PO DAILY atorvastatin 40 mg tablet 40 mg PO BEDTIME losartan 50 mg tablet 50 mg PO DAILY glipizide 5 mg tablet extended release 24hr PO (DME) Respironics DreamStation CPAP Qty: 1 Dose Instruction: As directed Label Comments: Pressure: 5-10 cmH2O DME: [employer] Rx Instructions: As directed (DME) Aircurve Auto Bipap Qty: 1 0RF Dose Instruction: As directed Rx Instructions: EPAP min 4, IPAP max 12, PS 4 P-10 large [employer] Discontinued cefpodoxime 100 mg tablet 100 mg PO BID Qty: 14 0RF Rx Instructions: must administer with a meal/food Follow up/Referrals: Roger Du MD [Primary Care Provider] - 06/19/22 2:15 pm (APPT:06/19 @ 2:15 w/Dr Du ) Diet/Activity/Treatments Diet: Carb-consistent/Diabetic Other treatments: Discharge to home with [facility] continued and add RN for wound care Skin/Wound/Dressing Care Dressing: Continue per wound care instructions from Wound Care consult Visit Report/Discharge Packet Stand Alone Forms: Patient Portal/API, Stroke Signs & Symptoms Discharge Data Primary Care Provider: Roger Du Attending Provider: Cosme Moilna
[2022-06-10] MEDS: RIVAROXABAN 10 MG TABLET 20 MG PO (09:00)
[2022-06-10] MEDS: SITAGLIPTIN 50 MG TABLET 100 MG PO (09:04)
[2022-06-10 09:05] VITALS: BP 132/85; PULSE 57
[2022-06-10] MEDS: LOSARTAN 50 MG TABLET PO (09:05)
[2022-06-10] MEDS: CYANOCOBALAMIN (VITAMIN B-12) 500 MCG TABLET 1000 MCG PO (09:05)
[2022-06-10] MEDS: predniSONE 20 MG TABLET PO (09:06)
[2022-06-10] MEDS: DOCUSATE 100 MG CAPSULE PO (09:06)
[2022-06-10] MEDS: FINASTERIDE 5 MG TABLET PO (09:06)
[2022-06-10] MEDS: CHOLECALCIFEROL (VITAMIN D3) 1,000 UNIT TABLET 2000 UNIT PO (09:06)
[2022-06-10] MEDS: TRIMETH/SULFA 160/800 (DS) TABLET 1 TAB PO (09:08)
--- NOTE | 2022-06-10 09:36 | CM.DPC ---
DCP Discharge Home with HH Per MD, pt is medically stable to d/c home today with [facility] and confirmed with SW and added this to her d/c summary and discharge plan and included RN for wound care and to follow wound care recommendations from Wound Consult note. RONALD called Brendan at [facility] and updated on above and he will review to confirm they have everything they need for Res[facility] of Care for pt with PT/OT/STUDIO DATA ANALYST and add RN. Plan: Patient to d/c home via spouse POV today and [facility] with added RN for wound care and ongoing [facility] 3x week. Karen Rowland MSW
[2022-06-10] MEDS: ACETAMINOPHEN 325 MG TABLET 650 MG PO (10:33)
--- NOTE | 2022-06-10 10:49 | PT.IPTN ---
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 (06/07/22) Pressure ulcer of right buttock, stage 1 (06/07/22) Non-pressure chronic ulcer of other part of left foot limited to breakdown of skin (06/07/22) Physical Therapy Treatment Note M2 PT-IP Current Condition Start: 06/08/22 09:26 Freq: NEEDED Status: Active Protocol: Document 06/09/22 11:12 SP (Rec: 06/09/22 12:31 SP [id number]) Physical Therapy Current Condition Current Condition Evaluation Date 06/08/22 Treatment Diagnosis UTI, generalized weakness, impaired mobility and gait Onset Date ~ a week M3 PT-IP Subjective Start: 06/08/22 09:26 Freq: NEEDED Status: Active Protocol: Document 06/10/22 10:23 COOKIE (Rec: 06/10/22 10:48 LJ [id number]) Subjective Physical Therapy Visit Type Type Treatment Note Visit Start Time 10:00 Visit Stop Time 10:23 Total Visit Minutes 23 Notes and son in room observing tx; setting up HH and home PT. In process of DC. Not wanting to do long tx time. Physical Therapy Visit Comments Patient Comments Pt is willing to participate with PT but not wanting to take long time Patient Goals Pt going home and getting stronger with continued PT. and son educated on importance of consistent exercise and mobility. Willing to encurage pt to do the exercises and activities HH PT assigns. Therapy Pain Assessment Pain When Pain Assessed During Mobility Pain Present Pain Present Denied Pain M4 PT-IP Mobility and Gait Start: 06/08/22 09:26 Freq: NEEDED Status: Active Protocol: Document 06/10/22 10:23 COOKIE (Rec: 06/10/22 10:48 COOKIE [id number]) PT-Transfer Assessment Sit to and From Stand Sit to and from Stand Standby Assistance,1 Person Assistance,Use of Upper Extremities Equipment Transfer Assistive Device Gait Belt,Front Wheeled Walker Orthotic/Prosthetic Devices or Brace: No Transfers Transfer Destination Bed Transfer Technique ambulated with FWW Transfer Ability Level of Assist Contact Guard Assistance,1 Person Assistance,Use of Upper Extremities Comments Mobility Comments Pt emerging from bathroom with SR. PAYROLL PROCESSOR. Pt ambulated to bed and sat down reaching back with both UEs. Hesitant about doing PT because in process of leaving. Pt agreed to ambulate in room with UNDERTAKER ASSISTANT to practice and get cues for safe ambulation at home. Pt able to stand from bed using UE on bed and other on FWW CGA. Pt ambulated around room x2 with max cues for posture, slowing, FWW proximity to body, shoulder relaxation, L foot positioning. and son observing and acknowledging understanding of cues. Pt ambulated ~60' in oom making turns both directions. Cued to move slower and keep FWW on floor and slide rather than lifting and turning with a jerky motion. Pt reports understanding. Pt returned to sitting on bed with controlled descent. Gait Assessment Gait Gait Assistance Required: Contact Guard Assist,1 Person Assist Distance (Feet) 60 Assistive Devices Assistive Device Gait Belt,Front Wheeled Walker Orthotic/Prosthetic Devices or Brace: No Gait Deviations General Gait Pattern Antalgic,Decreased Stride Length,Decreased Feet Clearance,Flexed Trunk,Narrow Based Gait Factors Limiting Gait Function Factors Limiting Gait Function Decreased Sensation,Decreased Strength,Difficulty Following Directions,Poor Balance,Poor Safety Awareness Comments Gait Comments See mobility comments Stair Climbing Assessment Comments Stair Climbing Comments Not assessed. Pt has chair lift at home to basement not need to access. PT-Balance Assessment Sitting Balance and Reactions Static Sitting Balance Ability Good Dynamic Sitting Balance Ability Good Standing Balance and Reactions Static Standing Balance Ability Good Dynamic Standing Balance Ability Fair Device Used FWW M5 PT-IP Objective Assessments Start: 06/08/22 09:26 Freq: NEEDED Status: Active Protocol: Document 06/08/22 11:02 AW (Rec: 06/08/22 13:06 AW [id number]) Orientation Orientation/Cognition Level of Alertness Alert Orientation Name,Month,Place,Situation Language Function Ability Hard of Hearing Safety Awareness Decreased Safety Awareness Gross Range of Motion Lower Extremity ROM Assessment Within Functional Limits Strength Lower Extremity Strength Hip R 4-/5; L 3/5 Knee R 4+/5; L 4-/5 Ankle R 4/5; L 3-/5 Comments Strength Comments Pt has history of CVA affecting left side strength Sensation Assessment Sensation Gross Sensation Left LE Impaired Light Touch Absent Proprioception (Position) Impaired Sensation Description Numbness Comments Sensation Comments Left foot significantly impaired. Ankle and calf affected but less severely. Muscle Tone Muscle Tone WNL Yes M6 PT-IP Treatment Start: 06/08/22 09:26 Freq: NEEDED Status: Active Protocol: Document 06/10/22 10:23 LJ (Rec: 06/10/22 10:48 COOKIE [id number]) Physical Therapy Treatment Education Education Provided Safety Other Treatments Other Treatment Performed education on sit>stand several times prior to settling intp a chair; getting up for several minutes each hhour of sitting to ambulate in the house; L foot IR exercises to strengthen and position foot for improved ambulation M7 PT-IP Assessment and Plan Start: 06/08/22 09:26 Freq: NEEDED Status: Active Protocol: Document 06/10/22 10:23 COOKIE (Rec: 06/10/22 10:48 COOKIE [id number]) PT Summary Assessment and Plan Potential Rehabilitation Potential Good Status of Condition at Evaluation Evolving Summary Impairments Strength,Balance,Sensation,Bed Mobility,Transfers,Gait, Activity Tolerance Progress Towards Goals Progressing Toward Goals Assessment Summary Pt improving independence with transfers and ambulation. Still requiring max cueing for proper and safer gait mechanics. Pts arranging to have additional assistance at home through [facility] and HH PT. Pt will require close supervision in ambulation at home to remind of cues FWW proximity, L foot positioning, posture, glute activation with gait, shoulder positioning and proper use of UEs on walker. Recommend 24/7 assistance and HH PT if going home. Goals Bed Mobility Goal Standby Assistance Transfer Goal Standby Assistance,Front Wheeled Walker Gait Goal Standby Assistance,Front Wheel Walker Gait Distance 100 Other Goals - improve transfers and gait to SBA with 4WW Days to Meet Goals 8 Frequency of Treatment Frequency Of Treatment Once a Day Treatment Plan Physical Therapy Treatment Plan Bed Mobility Training,Transfer Training,Gait Training, Therapeutic Exercise,Balance Retraining,Discharge Planning, Hot or Cold Pack,Neuromuscular Re-ed Precautions Other Precautions falls; sacral pressure injury - take care to avoid excess shear (using waffle cushion) Recommendations To Nursing Amount of Assist Needed 1 Person Assist Discharge Recommendations PT Discharge Recommendations Home with 24/7 Assist Available,Home Health Transportation Needs at Discharge Private Vehicle,Wheelchair/ Cabulance
--- NOTE | 2022-06-10 10:53 | PC.NURSE ---
Addendum entered by Robert Caceres R.N. 06/10/22 11:56: Discharge instructions given. Port deaccessed per protocol. Pt dressed and escorted to family car via w/c to care of family. Original Note: Pt discussing d/c, Concerned about snow and wanting to leave as possible. Pt is A&o feeling a bit stiff in the joints and back but ready to go home. and son are at bedside. OT and PT working with Pt. Taking shower, ADL's and getting ready to d/c.
--- NOTE | 2022-06-10 11:03 | OT.IP.TRT ---
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 OT Pain Assessment Pain When Pain Assessed At Rest Pain Present Pain Present Denied Pain M4 OT- IP ADL's Start: 06/09/22 11:19 Freq: Status: Active Protocol: Document 06/10/22 12:14 CGR (Rec: 06/10/22 12:20 CGR [id number]) OT [id number] Comments OT Self-Feeding Comments not meal time OT ADL-Grooming General Evaluation Grooming Ability Standby Assistance Areas Needing Assistance Face Washing Comments OT Grooming Comments pt washed face in shower OT ADL-Oral Care Comments Oral Care Comments not performed OT ADL-Dressing General Eval Upper Body Dressing Ability Standby Assistance Lower Body Dressing Ability Minimal Assistance Areas Needing Assistance Pull-Over Shirt,Underpants/ Brief,Pants/Shorts Comments OT Dressing Comments Pt was able to dress self but needed assist pulling pants and underwear up fully. Pt's pants and underwear appear small for pt which likely influenced pt's need for assist. OT ADL-Toileting Comments OT Toileting Comments not performed OT ADL-Bathing Bathing Type Bathing Type Shower General Evaluation Bathing Ability Moderate Assistance Areas Needing Assistance Retrieving/Setting Up Items Comments OT Bathing Comments Pt needed assist covering his L foot (wounds) and with washing his back and drying his lower legs. M5 OT- IP IADL's Start: 06/09/22 11:19 Freq: Status: Active Protocol: Document 06/09/22 11:19 CGR (Rec: 06/09/22 11:31 CGR [id number]) OT-Instrumental Activities of Daily Living Deficits IADL Deficits Identified No Deficits Home Safety Awareness Awareness of Need for Assistance at Home Good Awareness Ability to Problem Solve Emergency Able to Problem Solve Situations Medication Management Medication Management Caregiver Administers Money Management Money Management Caregiver Provides Assistance Meal Preparation Meal Preparation Caregiver Provides Assist Muck Miner Muck Miner Caregiver Provides Assist Driving Driving Comments Pt does not drive. M6 OT- IP Functional Cognition Start: 06/09/22 11:19 Freq: Status: Active Protocol: Document 06/09/22 11:19 CGR (Rec: 06/09/22 11:31 CGR [id number]) Cognitive Factors Limiting Selfcare Function Cognitive Ability Level of Alertness Alert Patient Orientation Name,Age,Birthday,Month,Date, Year,Day of Week,Place, Situation Attention Span Ability Capable of Focused Attention, Capable of Sustained Attention Ability to Follow Commands Able to Follow Multi-Step Commands OT- Vision and Hearing OT- Hearing Assessment OT- Hearing Assessment Hearing Impaired,Use of Hearing Aids OT- Vision Assessment Visual Acuity Glasses All The Time Visual Attentiveness WFL Occular Pursuits WFL Visual Convergence WFL Vision Assessment Comments Pt wears transition bifocals M7 OT- IP Mobility and Balance Start: 06/09/22 11:19 Freq: Status: Active Protocol: Document 06/10/22 12:14 CGR (Rec: 06/10/22 12:20 CGR [id number]) OT-Transfer Assessment Sit to and From Stand Sit to and from Stand Minimal Assistance Transfers Transfer Ability Minimal Assistance Technique Transfer Destination Chair,Shower Stall Transfer Technique Stand Step Pivot Devices Transfer Assistive Devices Gait Belt,Front Wheeled Walker Comments Mobility Comments Pt mobilized from chiar to shower and return. Pt needs max vc to keep walker closer to his body for mobility. 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 Strength Hand Dominance Right Comments Strength Comments Pt's left side is grossly 3+/5 , Pt's R hand and arm are 4+/5 but R shld 3+/5 OT- Coordination Assessment Upper Extremity Finger to Nose Test Within Functional Limits Finger Tapping Test Within Functional Limits OT-Muscle Tone Assessment Muscle Tone WNL Yes OT Sensation Assessment Comments Summary Comments Pt states sensation is typical to the LUE and states that the abnormal sensation is mostly to 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 Pt is planned for discharge home today with family assist. Pt is currently requiring min a for mobility and max vc to use walker properly. Pt agreeable to shower today so that he doesn' t need to shower immediately when he returns home. Pt needed mod a for shower and min a for LB dressing. Pt will continue to benefit from OT services. Recommend home health OT. Goals Grooming Goal Independent Dressing Goal Independent Toileting Goal Independent Bathing Goal Standby Assistance Toilet Transfer Goal Independent Shower Transfer Goal Standby Assistance Days to Meet Goals 10 Frequency of Treatment Frequency Of Treatment Once a Day Treatment Plan OT Treatment Plan ADL Training,Functional Mobility,Therapeutic Exercises ,Patient/Family Education, Discharge Planning Other Treatment Recommendations and Next ADLs standing at sink Treatment Focus Discharge Recommendations OT Discharge Recommendations Home vs SNF Transportation Needs at Discharge Private Vehicle
--- NOTE | 2022-06-23 11:26 | PC.NURSE ---
Late Entry: Ceftriaxone infusion initiated 06/08at 15:37 complete at 16:08.
== END 2022-06-10 11:15 | disposition home health service (06) ==
LOC: ED 15:18 → AC 15:48
PROVIDERS: Admitting Provider Family Medicine; Emergency Provider Emergency Medicine; PCP Family Medicine; Referring Provider Emergency Medicine; Visit Provider Family Medicine
DX: L97.521 Non-pressure chronic ulcer of other part of left foot limited to breakdown of skin (principal); L89.311 Pressure ulcer of right buttock, stage 1; R53.1 Weakness; W01.10XA Fall on same level from slipping, tripping and stumbling with subsequent striking against unspecified object, initial encounter; Y92.009 Unspecified place in unspecified non-institutional (private) residence as the place of occurrence of the external cause; A41.9 Sepsis, unspecified organism; N39.0 Urinary tract infection, site not specified; B96.1 Klebsiella pneumoniae [K. pneumoniae] as the cause of diseases classified elsewhere; I26.99 Other pulmonary embolism without acute cor pulmonale; C61 Malignant neoplasm of prostate; C80.1 Malignant (primary) neoplasm, unspecified; E11.621 Type 2 diabetes mellitus with foot ulcer; I10 Essential (primary) hypertension; E78.5 Hyperlipidemia, unspecified; Z79.84 Long term (current) use of oral hypoglycemic drugs; Z79.01 Long term (current) use of anticoagulants; Z20.822 Contact with and (suspected) exposure to COVID-19
CPT/HCPCS: 0241U; 36415; 36591; 70450; 71045; 72125; 72170; 72192; 80053; 81003; 81015; 82550; 82962; 83605; 83690; 84145; 84484; 85025; 87040; 87077; 87086; 87186; 93005; 96365; 96366; 96367; 96372; 97116; 97162; 97167; 97530; 97535; 99231; 99285; G0378; J0692; J0696; J1815

== ENCOUNTER → 2022-06-13 14:45 | Outpatient (CLI) | payer MEDICARE, OTHER, SELFPAY ==
[2022-06-07 17:04] VITALS: BMI 27.0
== END ==
PROVIDERS: PCP Family Medicine; Referring Provider Family Medicine; Visit Provider Nurse Practitioner Family
DX: E11.621 Type 2 diabetes mellitus with foot ulcer (principal); L89.153 Pressure ulcer of sacral region, stage 3; L97.522 Non-pressure chronic ulcer of other part of left foot with fat layer exposed; L08.9 Local infection of the skin and subcutaneous tissue, unspecified; E11.628 Type 2 diabetes mellitus with other skin complications
CPT/HCPCS: 11042; 99213

== ENCOUNTER → 2022-06-20 13:37 | Outpatient (CLI) | payer MEDICARE, OTHER, SELFPAY ==
[2022-06-07 17:04] VITALS: BMI 27.0
== END ==
PROVIDERS: PCP Family Medicine; Referring Provider Family Medicine; Visit Provider Nurse Practitioner Family
DX: L89.153 Pressure ulcer of sacral region, stage 3 (principal); L08.9 Local infection of the skin and subcutaneous tissue, unspecified; E11.628 Type 2 diabetes mellitus with other skin complications; Z89.422 Acquired absence of other left toe(s)
CPT/HCPCS: 11042; 99213

== ENCOUNTER → 2022-06-27 14:57 | Outpatient (CLI) | payer MEDICARE, OTHER, SELFPAY ==
[2022-06-07 17:04] VITALS: BMI 27.0
== END ==
PROVIDERS: PCP Family Medicine; Referring Provider Family Medicine; Visit Provider Nurse Practitioner Family
DX: E11.628 Type 2 diabetes mellitus with other skin complications (principal); L89.152 Pressure ulcer of sacral region, stage 2; Z74.09 Other reduced mobility; Z85.520 Personal history of malignant carcinoid tumor of kidney; C61 Malignant neoplasm of prostate; K51.919 Ulcerative colitis, unspecified with unspecified complications
CPT/HCPCS: 11042

== ENCOUNTER → 2022-07-04 13:57 | Outpatient (CLI) | payer MEDICARE, OTHER, SELFPAY ==
[2022-06-07 17:04] VITALS: BMI 27.0
== END ==
PROVIDERS: PCP Family Medicine; Referring Provider Family Medicine; Visit Provider Nurse Practitioner Family
DX: L89.153 Pressure ulcer of sacral region, stage 3 (principal); E11.628 Type 2 diabetes mellitus with other skin complications; Z74.09 Other reduced mobility
CPT/HCPCS: 11042

== ENCOUNTER → 2023-11-16 13:50 | Outpatient (ROUT) | payer MEDICARE, OTHER, SELFPAY ==
[2022-06-07 17:04] VITALS: BMI 27.0
[2023-11-16 14:05] LABS: Appearance Urine UA CLOUDY; Bilirubin Urine UA NEGATIVE (NEGATIVE); Color Urine UA BROWN; Glucose Urine UA NEGATIVE (Negative); Ketones Urine UA NEGATIVE (NEGATIVE); Leukocyte Esterase Urine UA 1+ (NEGATIVE); Nitrite Urine UA NEGATIVE (Negative); Occult Blood Urine UA 2+ (Negative); Protein Urine UA 3+ (Negative); Specific Gravity Urine UA 1.015 (1.000-1.035); pH Urine UA 8.5 (4.5-8.0)
[2023-11-16 14:06] LABS: Urine Volume 10mL (spun)
[2023-11-16 14:09] LABS: Bacteria Urine Many (>30); Culture Indicated Urine Specimen Cultured; RBC Urine 5-10/HPF (0-5/HPF); Squamous Epithelial Cell Urine 1-5 /HPF (0-5/HPF); Triple Phosphate Crystal Urine Few; WBC Urine 10-30/HPF (0-5/HPF)
== END ==
PROVIDERS: PCP Family Medicine; Visit Provider Psychiatry & Neurology Neurology
DX: C64.1 Malignant neoplasm of right kidney, except renal pelvis (principal)
CPT/HCPCS: 81001; 87077; 87086